=== PATIENT | male | born 1935 | race Caucasian/White ===

== ENCOUNTER 2016-11-21 08:57 | Outpatient (CLI) | payer MEDICARE, OTHER ==
[2016-11-21 09:25] LABS: Hemoglobin A1c 5.2 % (4.0-6.0)
[2016-11-21 09:31] LABS: #Basophils 0.1 thou/uL (0.0-0.2); #Eosinphils 0.2 thou/uL (0.0-0.7); #Lymphocytes 1.7 thou/uL (1.20-3.40); #Monocytes 0.5 thou/uL (0.11-0.59); #Neutrophils 3.3 thou/uL (1.40-6.50); %Basophils 1.1 % (0.0-1.0); %Eosinophils 3.3 % (0.0-10.0); %Monocytes 8.1 % (0.0-10.0); %Neutrophils 58.5 % (42.0-75.0); Hemoglobin 13.7 g/dL (14.0-18.0); Mean Corpuscular HGB CONC 33.1 g/dL (32.0-36.0); Mean Corpuscular Hemoglobin 29.7 pg (27.0-31.0); Mean Corpuscular Volume 89.7 fl (80.0-94.0); Mean Platelet Volume 7.8 fL (7.4-10.4); Platelet Count 187 thou/uL (130-400); Red Blood Cell (RBC) Count 4.61 mill/uL (4.70-6.10); White Blood Cell (WBC) Count 5.7 thou/uL (4.8-10.8)
[2016-11-21 09:36] LABS: ALT (SGPT) 17 U/L (0-55); AST (SGOT) 19 U/L (5-34); Albumin 3.6 g/dL (3.4-4.8); Alkaline Phosphatase 95 U/L (40-150); Anion Gap 15 mmol/L (10-20); BUN (Urea Nitrogen) 18 mg/dL (8.4-25.7); Calc. Creatinine Clearance 0 mL/min (70-130); Calcium 9.6 mg/dL (7.8-10.44); Carbon Dioxide 29 mmol/L (23-31); Cardiac Risk 2.7 (Less than 4.5); Chloride 101 mmol/L (98-107); Cholesterol 126 mg/dL (< 200 Desired); Estimated GFR-MDRD 61; Glucose 95 mg/dL (83-110); HDL Cholesterol 47 mg/dL (>60 Neg Risk); LDL Cholesterol, Calculated 66 mg/dL; Potassium 4.3 mmol/L (3.5-5.1); Protein, Total 6.6 g/dL (5.8-8.1); Sodium 141 mmol/L (136-145); Triglycerides 66 mg/dL (Less than 150)
[2016-11-21 09:53] LABS: Bilirubin Negative (Negative); Blood, Urine Trace (Negative); Clarity Clear (Clear); Glucose, Urine (Dipstick) Negative (Negative); Leukocyte Negative (Negative); Nitrite Negative (Negative); Protein, Urine (Dipstick) Trace mg/dL (Neg-Trace)
[2016-11-21 10:07] LABS: Bilirubin, Total 0.6 mg/dL (0.2-1.2)
[2016-11-21 10:12] LABS: RBC/HPF 0-3 HPF (0-3); WBC/HPF None Seen HPF (0-3)
[2016-11-21 19:09] LABS: Creatinine, Urine 156.34 mg/dL (63-166); Microalbumin Urine 4.5 mg/dL (0.5-50.0); Microalbumin/Creat Ratio 28.8 mg/g (Less than 30)
== END 2016-11-21 08:58 ==
LOC: MADLABBHPM 08:57
PROVIDERS: ATTEND Family Medicine
DX: E03.9 Hypothyroidism, unspecified (principal)
CPT/HCPCS: 36415; 80053; 80061; 81001; 82043; 82570; 83036; 84443; 85025

== ENCOUNTER 2017-02-19 08:56 | Outpatient (CLI) | payer MEDICARE, OTHER ==
[2017-02-19 09:22] LABS: #Eosinphils 0.1 thou/uL (0.0-0.7); #Lymphocytes 1.4 thou/uL (1.20-3.40); #Monocytes 0.4 thou/uL (0.11-0.59); #Neutrophils 2.3 thou/uL (1.40-6.50); %Basophils 1.2 % (0.0-1.0); %Eosinophils 3.4 % (0.0-10.0); %Lymphocytes 32.9 % (21.0-51.0); %Monocytes 8.8 % (0.0-10.0); %Neutrophils 53.7 % (42.0-75.0); Hemoglobin 14.2 g/dL (14.0-18.0); Mean Corpuscular Hemoglobin 29.5 pg (27.0-31.0); Mean Corpuscular Volume 89.4 fl (80.0-94.0); Platelet Count 159 thou/uL (130-400); Red Blood Cell (RBC) Count 4.83 mill/uL (4.70-6.10); White Blood Cell (WBC) Count 4.2 thou/uL (4.8-10.8)
[2017-02-19 09:32] LABS: Hemoglobin A1c 5.3 % (4.0-6.0)
[2017-02-19 09:49] LABS: ALT (SGPT) 14 U/L (0-55); AST (SGOT) 19 U/L (5-34); Albumin 3.8 g/dL (3.4-4.8); Alkaline Phosphatase 109 U/L (40-150); Anion Gap 14 mmol/L (10-20); BUN (Urea Nitrogen) 16 mg/dL (8.4-25.7); Bilirubin, Direct 0.2 mg/dL (0.1-0.3); Bilirubin, Total 0.5 mg/dL (0.2-1.2); Calc. Creatinine Clearance 0 mL/min (70-130); Calcium 9.4 mg/dL (7.8-10.44); Carbon Dioxide 28 mmol/L (23-31); Cardiac Risk 3.2 (Less than 4.5); Chloride 102 mmol/L (98-107); Cholesterol 127 mg/dL (< 200 Desired); Estimated GFR-MDRD 53; Glucose 94 mg/dL (83-110); HDL Cholesterol 40 mg/dL (>60 Neg Risk); LDL Cholesterol, Calculated 74 mg/dL; Potassium 4.2 mmol/L (3.5-5.1); Protein, Total 6.7 g/dL (5.8-8.1); Sodium 140 mmol/L (136-145); Triglycerides 63 mg/dL (Less than 150)
== END 2017-02-19 08:57 ==
LOC: MADLABBHPM 08:56
PROVIDERS: ATTEND Family Medicine
DX: I42.9 Cardiomyopathy, unspecified (principal); E11.9 Type 2 diabetes mellitus without complications
CPT/HCPCS: 36415; 80048; 80061; 80076; 83036; 85025

== ENCOUNTER 2017-07-13 08:43 | Outpatient (CLI) | payer MEDICARE, OTHER ==
[2017-07-13 09:34] LABS: #Basophils 0.1 thou/uL (0.0-0.2); #Eosinphils 0.2 thou/uL (0.0-0.7); #Lymphocytes 1.3 thou/uL (1.20-3.40); #Monocytes 0.5 thou/uL (0.11-0.59); #Neutrophils 3.1 thou/uL (1.40-6.50); %Basophils 1.1 % (0.0-1.0); %Eosinophils 3.8 % (0.0-10.0); %Lymphocytes 25.9 % (21.0-51.0); %Monocytes 9.2 % (0.0-10.0); Hemoglobin 14.2 g/dL (14.0-18.0); Mean Corpuscular HGB CONC 32.3 g/dL (32.0-36.0); Mean Corpuscular Hemoglobin 29.3 pg (27.0-31.0); Mean Corpuscular Volume 90.5 fl (80.0-94.0); Platelet Count 162 thou/uL (130-400); Red Blood Cell (RBC) Count 4.83 mill/uL (4.70-6.10); White Blood Cell (WBC) Count 5.2 thou/uL (4.8-10.8)
[2017-07-13 09:39] LABS: Hemoglobin A1c 5.1 % (4.0-6.0)
[2017-07-13 10:06] LABS: ALT (SGPT) 26 U/L (8-55); AST (SGOT) 21 U/L (5-34); Albumin 3.9 g/dL (3.4-4.8); Alkaline Phosphatase 105 U/L (40-150); Anion Gap 13 mmol/L (10-20); BUN (Urea Nitrogen) 20 mg/dL (8.4-25.7); Bilirubin, Direct 0.2 mg/dL (0.1-0.3); Bilirubin, Total 0.5 mg/dL (0.2-1.2); Calc. Creatinine Clearance 0 mL/min (70-130); Calcium 9.6 mg/dL (7.8-10.44); Carbon Dioxide 26 mmol/L (23-31); Cardiac Risk 2.4 (Less than 4.5); Chloride 102 mmol/L (98-107); Cholesterol 116 mg/dl (< 200 Desired); Estimated GFR-MDRD 58; Glucose 90 mg/dL (83-110); HDL Cholesterol 48 mg/dL (>60 Neg Risk); LDL Cholesterol, Calculated 58 mg/dL; Potassium 4.4 mmol/L (3.5-5.1); Protein, Total 6.9 g/dL (5.8-8.1); Sodium 137 mmol/L (136-145); Triglycerides 52 mg/dL (Less than 150)
== END 2017-07-13 08:44 | disposition home or self-care (01) ==
LOC: MADLABBHPM 08:43
PROVIDERS: ATTEND Family Medicine
DX: E11.22 Type 2 diabetes mellitus with diabetic chronic kidney disease (principal); N18.3 Chronic kidney disease, stage 3 (moderate)
CPT/HCPCS: 36415; 80048; 80061; 80076; 83036; 85025

== ENCOUNTER 2018-10-28 11:55 | Outpatient (CLI) | payer MEDICARE, BC ==
--- NOTE | 2018-10-28 16:51 | ULT ---
RENAL SONOGRAM: Date: 10-28-18 History: Abnormality left kidney seen on CTA chest. Comparison: CTA chest 09-26-18 FINDINGS: The right kidney demonstrates a normal sonographic appearance without evidence of renal mass, renal c alculus or hydronephrosis. The right kidney measures 10.7 cm x 5 cm. The superior and inferior poles of the left kidney are not well visualized due to adjacent shadowing from bowel gas. The right kidney measures 11.7 cm x 4.1 cm. Previously noted exophytic lesion at the superior pole left kidney is not visualized on this examination. There is no hydronephrosis or renal calculus seen on the left. The urinary bladder is partially distended and has a normal sonographic appearance with urinary bladd er volume of 147 ml. IMPRESSION: 1. The exophytic lesion superior pole left kidney noted on CT examination is not visualized on this s tudy and cannot be further assessed. Kidneys otherwise have a normal sonographic appearance bilatera lly, and there is no hydronephrosis. POS: ALLI
== END 2018-10-28 11:56 | disposition home or self-care (01) ==
LOC: MADULT 11:55
PROVIDERS: ATTEND Family Medicine
DX: R93.89 Abnormal findings on diagnostic imaging of other specified body structures (principal); N28.9 Disorder of kidney and ureter, unspecified
CPT/HCPCS: 76770

== ENCOUNTER 2018-12-20 17:42 | Inpatient (IN) | payer MEDICARE, BC ==
[2018-12-20 18:31] VITALS: BMI 37.6
[2018-12-20] MEDS ORDERED: Milk Of Magnesia 30 ML UDCUP PO PRN (20:45)
[2018-12-21] MEDS: PROPAFENONE HCL 225 MG PO SCH ×4 (01:51→09:41)
[2018-12-21] MEDS: guaiFENesin ER 600 MG TAB PO SCH ×4 (01:52→21:30)
[2018-12-21] MEDS: Apixaban 5 MG TAB PO SCH ×4 (01:52→21:29)
[2018-12-21] MEDS: Cephalexin 250 MG CAP PO SCH ×5 (02:00→21:29)
[2018-12-21] MEDS: Atorvastatin Calcium 10 MG TAB PO SCH ×2 (02:00→21:29)
[2018-12-21] MEDS: Montelukast Sodium 10 mg Tablet PO SCH ×2 (02:01→21:30)
[2018-12-21] MEDS: Lorazepam 1 MG TAB PO PRN ×2 (02:01→21:31)
[2018-12-21] MEDS: Levothyroxine Sodium 25 MCG TAB PO SCH (05:52)
[2018-12-21] MEDS: Furosemide 80 MG TAB PO SCH (08:07)
[2018-12-21] MEDS: Polyethylene Glycol 3350 17 GM Packet PO SCH (08:07)
[2018-12-21] MEDS: Aspirin 81 mg Enteric Coated Tablet PO SCH (08:07)
[2018-12-21] MEDS: Spironolactone 25 MG TAB PO SCH (09:36)
[2018-12-21] MEDS: Propafenone HCl 150 MG TAB PO SCH ×2 (14:52→21:31)
[2018-12-22 05:01] LABS: #Basophils 0.1 thou/uL (0.0-0.2); #Eosinphils 0.1 thou/uL (0.0-0.7); #Lymphocytes 1.7 thou/uL (1.20-3.40); #Monocytes 0.8 thou/uL (0.11-0.59); #Neutrophils 4.3 thou/uL (1.40-6.50); %Basophils 0.8 % (0.0-1.0); %Eosinophils 1.3 % (0.0-10.0); %Lymphocytes 24.2 % (21.0-51.0); %Monocytes 11.7 % (0.0-10.0); Hemoglobin 12.1 g/dL (14.0-18.0); Mean Corpuscular HGB CONC 31.5 g/dL (32.0-36.0); Mean Corpuscular Hemoglobin 28.9 pg (27.0-31.0); Mean Corpuscular Volume 91.5 fL (78.0-98.0); Mean Platelet Volume 6.4 fL (7.4-10.4); Platelet Count 209 thou/uL (130-400); RBC Distribution Width 14.6 % (11.5-14.5)
[2018-12-22] MEDS: Propafenone HCl 150 MG TAB PO SCH ×3 (05:09→21:25)
[2018-12-22] MEDS: Levothyroxine Sodium 25 MCG TAB PO SCH (05:09)
[2018-12-22 05:20] LABS: Anion Gap 14 mmol/L (10-20); BUN (Urea Nitrogen) 21 mg/dL (8.4-25.7); Calc. Creatinine Clearance 107 mL/min (70-130); Calcium 8.9 mg/dL (7.8-10.44); Carbon Dioxide 37 mmol/L (23-31); Estimated GFR-MDRD 75; Glucose 84 mg/dL (83-110)
[2018-12-22 05:25] LABS: Chloride 92 mmol/L (98-107); Potassium 3.3 mmol/L (3.5-5.1); Sodium 140 mmol/L (136-145)
[2018-12-22] MEDS: Polyethylene Glycol 3350 17 GM Packet PO SCH (08:10)
[2018-12-22] MEDS: Aspirin 81 mg Enteric Coated Tablet PO SCH (08:12)
[2018-12-22] MEDS: Apixaban 5 MG TAB PO SCH ×2 (08:12→21:24)
[2018-12-22] MEDS: Cephalexin 250 MG CAP PO SCH ×3 (08:13→21:24)
[2018-12-22] MEDS: Spironolactone 25 MG TAB PO SCH (08:13)
[2018-12-22] MEDS: guaiFENesin ER 600 MG TAB PO SCH ×2 (08:13→21:25)
[2018-12-22] MEDS: Furosemide 80 MG TAB PO SCH (08:13)
[2018-12-22] MEDS ORDERED: Potassium Chloride 10 MEQ TAB PO SCH (09:45)
[2018-12-22] MEDS: Atorvastatin Calcium 10 MG TAB PO SCH (21:24)
[2018-12-22] MEDS: Montelukast Sodium 10 mg Tablet PO SCH (21:25)
[2018-12-22] MEDS: Lorazepam 1 MG TAB PO PRN (21:26)
[2018-12-23 05:22] LABS: Anion Gap 13 mmol/L (10-20); BUN (Urea Nitrogen) 15 mg/dL (8.4-25.7); Calc. Creatinine Clearance 121 mL/min (70-130); Calcium 8.6 mg/dL (7.8-10.44); Carbon Dioxide 36 mmol/L (23-31); Estimated GFR-MDRD 86; Glucose 85 mg/dL (83-110)
[2018-12-23 05:30] LABS: Chloride 94 mmol/L (98-107); Potassium 3.4 mmol/L (3.5-5.1); Sodium 140 mmol/L (136-145)
[2018-12-23] MEDS: Propafenone HCl 150 MG TAB PO SCH ×3 (05:47→22:04)
[2018-12-23] MEDS: Levothyroxine Sodium 25 MCG TAB PO SCH (05:48)
--- NOTE | 2018-12-23 07:58 | HP ---
Admitted at [facility] to [facility] care on the late evening of 12/20/2018. CHIEF COMPLAINT: Weakness following hospitalization for cellulitis of the right leg. HISTORY OF PRESENT ILLNESS: The patient is an 83-year-old obese white male who has a history of COPD, severe obstructive sleep apnea, for which he required permanent tracheostomy for management. These respiratory problems are complicated by chronic hypoxic and hypercapnic respiratory failure. He also has a history of hypertension, coronary artery disease, and paroxysmal atrial fibrillation and flutter, for which he is on anticoagulant Eliquis and on Rythmol. He has hypertension and severe venous insufficiency of the lower extremities, complicated by numerous episodes of cellulitis. He has required numerous hospitalizations for either COPD exacerbations or the cellulitis of the lower extremities. He lives at home, where his is his primary caregiver. He can ambulate very short distances, typically gets around in a wheelchair with someone wheeling him. He requires assistance with bathing and dressing and daily care of his trach. The patient was hospitalized at [facility] from 12/17/2018 until 2018 for cellulitis of the right lower extremity. This had initially been attempted to be managed at home. When the leg experienced increased swelling and redness, he was placed on clindamycin 300 mg q.i.d., rest with elevation of the legs, and moist and warm pack. In spite of this, his leg got worse and bright red and hot, necessitating the hospitalization. During that hospitalization, he had a venous Doppler of the lower extremities, which showed no evidence of DVT. His chest x- ray was clear and blood cultures were negative. He was treated with IV Rocephin and vancomycin, and after improvement and cultures came back negative, he was switched to Keflex. He did very well and the cellulitis was resolving, but we will need to continue oral cephalexin for at least another 7 to 10 days. The patient has been very weak, and even prior to this hospitalization, had been weaker than usual and had not been able to get out of the home as a result of the weakness. This has come on with marked decline in his strength after hospitalization from 10/30 to for episode of atrial fibrillation, flutter with rapid ventricular response. This has been controlled. The patient was seen early in the morning of 12/21/2018, and he said he is feeling a lot better. His breathing is stable and his leg feels a lot better and it is not red and hot, he is though extremely weak. PAST MEDICAL HISTORY: Hospitalized at [facility] from 12/17/2018 until 12/20/2018 for right lower extremity cellulitis. Venous Doppler showed no evidence of DVT, treated with Rocephin and vancomycin, and switched to cephalexin. Hospitalized at [facility] from 10/30/2018 until 11/04/2018 for atrial flutter, [id number] respiratory failure. The patient has hypertension, severe COPD with chronic hypoxic and hypercapnic respiratory failure, severe sleep apnea that required permanent tracheostomy, which requires cleaning at least twice a day and more often as needed and periodic change out of the tracheostomy tube. The patient has paroxysmal atrial fibrillation and flutter, for which he is on Eliquis and also on Rythmol. The patient has coronary artery disease, for which he had a bare-metal stent placed in the ramus in 2003. He is a former smoker. He has a history of gastrointestinal bleed years previously. He also has a history of severe venous insufficiency of the lower extremities with chronic stasis dermatitis, and frequently complicated by episodes of cellulitis. He has hypercholesterolemia, hypothyroidism, chronic kidney disease. Historically, he has had diabetes, but he is presently on no medications. Last hemoglobin A1c was 5.2 on 10/08/2018. He has generalized weakness and gait abnormality, morbid obesity, osteoarthritis. The patient had an EGD with gastrostomy tube placement in January 2012, this tube was later removed. Colonoscopy in 2010, showed diverticular disease of the colon and hemorrhoids. Tracheostomy placed on 06/10/2011. Cholecystectomy in April 2000. PRESENT MEDICATIONS: 1. Atorvastatin 10 mg daily. 2. Furosemide 80 mg daily. 3. Lorazepam 1 mg b.i.d. p.r.n. 4. Mucinex 1200 mg b.i.d. 5. Eliquis 5 mg b.i.d. 6. Aspirin 81 mg daily. 7. Cephalexin 500 mg t.i.d. for 7 days. 8. Cardizem CD 120 mg daily. 9. DuoNeb by nebulizer q.i.d. and every 2 hours as needed. 10. Synthroid 25 mcg daily. 11. Singulair 10 mg daily. 12. Rythmol 225 mg every 8 hours. 13. Aldactone 25 mg daily. 14. Renuka lotion/Kenalog 15 ounces/200 mg apply to the legs twice a day as needed for itching. 15. MiraLAX 17 g in 8 ounces of water daily. 16. Tylenol 500 mg one every 6 hours as needed. 17. Oxygen at 2 L via trach at bedtime and p.r.n. 18. Spironolactone 25 mg daily. ALLERGIES: TAMIFLU CAUSES ITCHING. REVIEW OF SYSTEMS: GENERAL: The patient said he has not had any fever. He does not think that his weight has changed. HEAD AND NECK: No complaint. PULMONARY: The patient is breathing, he thinks it is normal for him. His tracheostomy tube has to be cleaned at least twice a day and more often as needed. He has some minimal mucus being cleaned from the inter cannula of the trach that is not discolored. He is not having any increased cough. No increased sputum production. No increased shortness of breath. CARDIOVASCULAR: No chest pain. GI: No nausea, vomiting, or abdominal pain. He said he is constipated. : No complaints. EXTREMITIES: The patient said that his right leg feels a lot better. The increased heat and redness has gone. ADLs; the patient said that he is much weaker than usual. He cannot get up without some help. He is usually able to ambulate short distances in the home, needs help with transfers, usually gets around in a wheelchair with someone pushing him. The patient needs help with bathing, dressing, and ambulation, and he is able to feed himself. HABITS: Alcohol, none. Tobacco, the patient used to smoke. SOCIAL HISTORY: The patient lives at home. Primary caregiver is his , Steph. CODE STATUS: Full code. PHYSICAL EXAMINATION: GENERAL: Shows an 83-year-old white male, who is sitting up in a Dede chair. He has a tracheostomy tube in place and covers this to talk. He has a trach shield over the trach site. He looks very comfortable. He is talkative, and smiling and appears in no distress. VITAL SIGNS: Show a temperature of 97.2, pulse 84, respirations 20, O2 saturations 98% on trach collar at 31%, blood pressure 142/91. His height is 70 inches, weight is 285. HEENT: Head, normocephalic. Eyes; pupils are equal, round, reactive. Sclerae are nonicteric. Ears; left TM has cerumen obscuring the TM. Right TM, clear. Nose , normal. Mouth and throat, normal. NECK: No adenopathy. Thyroid, not enlarged. The patient has a tracheostomy tube present. The trach site is clean and inner cannula. There is no mucus at the trach tube site. The surrounding skin of the trach is not red. LUNGS: Have some coarse expiratory breath sounds. No definite wheezing, no rales with good breath sounds. HEART: Regular rate. No murmurs. ABDOMEN: Obese. No organomegaly. No areas of tenderness. EXTREMITIES: Lower extremities, the patient has chronic 2+ edema in both legs. He has chronic stasis changes with a bluish discoloration of the skin. The right leg had been extremely red and hot on his admission to [place] on 12/17/2018. This redness and increased heat has all resolved. He does have some little superficial open areas on the anterior lower leg that have overlying dressings. NEUROLOGIC: The patient is alert and oriented x3. He has generalized weakness , but no focal weakness. IMPRESSION: 1. Generalized weakness with gait abnormality: a. Secondary to severe deconditioning, aggravated by recent hospitalizations on 10/30/2018 and then again on 12/17/2018. b. Contributed too by his severe chronic obstructive pulmonary disease and obstructive sleep apnea and obesity. 2. Hospitalized at [facility] from 12/17/2018 to 12/20/2018 for cellulitis of the right leg, unresponsive to outpatient management. 3. Cellulitis of the right leg. a. Required hospitalization at [facility] from 12/17/2018 until 11/2018. b. Improved and now on oral antibiotics. 4. Chronic obstructive pulmonary disease: a. Complicated by chronic hypoxic and hypercapnic respiratory failure, contributed too by his obstructive sleep apnea. 5. Severe obstructive sleep apnea: a. Required permanent tracheostomy, placed on 06/10/2011. b. Complicated by chronic hypoxic and hypercapnic respiratory failure. 6. Paroxysmal atrial fibrillation/atrial flutter. a. Controlled on Rythmol and on chronic anticoagulation with Eliquis. 7. Coronary artery disease. a. Status post bare metal stent in 2003 in the ramus. b. Presently asymptomatic. 8. Morbid obesity. 9. Severe venous insufficiency of the lower extremities. a. Complicated by chronic stasis dermatitis. b. Complicated by frequent episodes of cellulitis, most recent episode requiring hospitalization from 12/17/2018 to 12/20/2018. 10. Hypertension. 11. Hypothyroidism. 12. Chronic kidney disease, stage 3. 13. Anxiety disorder. PLAN: The patient has been admitted to [facility] for physical therapy in an effort to improve his strength, his gait, and functional capabilities. He lives at home and his serves as his primary caregiver. If his functional capabilities improve, it would greatly assist with his care in the home. We will continue his present medicines. We will continue his antibiotics with cephalexin for a 10-day period. PT and OT will see him. He will receive trach care with cleaning of the inner cannula at least twice a day and as needed. He is on Eliquis for the atrial fib. It will as DVT prophylaxis. He is a full code. See orders. Job ID: [id number] MTDD
--- NOTE | 2018-12-23 08:06 | PRG ---
DATE OF SERVICE: 12/22/2018 SUBJECTIVE: The patient is sitting up in his geriatric chair with his visiting. He says he had a good night, slept well. This morning, he feels better. Yesterday, he did walk just a short distance in the hallway with a walker and thought he did well. His legs are feeling good today, and his breathing, he thinks is about normal for him. There is no increased cough. OBJECTIVE: GENERAL: The patient is sitting up in his geriatric chair, he is smiling, looks very comfortable, in no distress. VITAL SIGNS: Show a temperature of 97.3, pulse 60, respirations 20, O2 saturations 96% with a trach collar, and blood pressure 128/65. LUNGS: Have some very slight coarseness on inspiration, there is no wheeze. Expiration is clear, there are no rales or wheezes. There are good breath sounds. HEART: Regular rate. EXTREMITIES: The legs look better. There is no redness. He has a chronic bluish hue, and the legs are dependent and some 1+ edema, much less than usual. LABORATORY DATA: The lab done this morning shows hemoglobin and hematocrit of 12.1 and 38.7, white blood cell count 7000, with 62% segs, 24% lymphocytes, and platelet count of 209,000. Sodium 140, potassium 3.3, BUN 21, creatinine 0.96, GFR 75, glucose 84. ASSESSMENT: The patient is doing better today. The cellulitis is all resolving. His severe venous insufficiency is much better, and chronic stasis dermatitis is stable. He is doing well with his permanent trach, but still requires the supplemental O2 by the trach collar. He still has a generalized weakness, but he has been up walking some. PLAN: We will continue the oral antibiotics, continue PT and OT. Job ID: [id number]
[2018-12-23] MEDS: Cephalexin 250 MG CAP PO SCH ×3 (08:19→20:42)
[2018-12-23] MEDS: Potassium Chloride 10 MEQ TAB PO SCH (08:19)
[2018-12-23] MEDS: Polyethylene Glycol 3350 17 GM Packet PO SCH (08:19)
[2018-12-23] MEDS: guaiFENesin ER 600 MG TAB PO SCH ×2 (08:19→20:42)
[2018-12-23] MEDS: Spironolactone 25 MG TAB PO SCH (08:20)
[2018-12-23] MEDS: Furosemide 80 MG TAB PO SCH (08:20)
[2018-12-23] MEDS: Aspirin 81 mg Enteric Coated Tablet PO SCH (08:20)
[2018-12-23] MEDS: Apixaban 5 MG TAB PO SCH ×2 (08:20→20:43)
--- NOTE | 2018-12-23 09:12 | PRG ---
DATE OF SERVICE: 12/23/2018 SUBJECTIVE: The patient thinks he is doing good today. He slept good in his bed last night. His breathing is doing good. He states he just worked with physical therapy this morning. The patient has had a little redness in the groin area at home. This happens and he uses a little antifungal cream that helps. OBJECTIVE: GENERAL: The patient is sitting up in a chair, visiting with friends. He appears comfortable, in no distress, talkative. VITAL SIGNS: Shows a temperature 97.2, pulse 57, respirations 20, O2 saturation 93%, blood pressure 123/70. LUNGS: Clear. There are some coarse rales at the base that resolved with deep inspiration. HEART: Regular rate. EXTREMITIES: Chronic 1+ edema in the legs present. Chronic stasis changes. Overall, the legs are unchanged. There is no redness or increased heat. ASSESSMENT: 1. Generalized weakness with gait abnormality: a. Secondary to severe deconditioning, aggravated by recent hospitalizations on 10/30/2018 and then again on 12/17/2018. b. Contributed too by his severe chronic obstructive pulmonary disease and obstructive sleep apnea and obesity. c. Improved. Walking short distances as of 12/23/2018. 2. Hospitalized at [facility] from 12/17/2018 to 12/20/2018 for cellulitis of the right leg, unresponsive to outpatient management. 3. Cellulitis of the right leg. a. Required hospitalization at [facility] from 12/17/2018 until 11/2018. b. Resolving, completing his course of oral antibiotics as of 12/23/2018. 4. Chronic obstructive pulmonary disease: a. Complicated by chronic hypoxic and hypercapnic respiratory failure, contributed too by his obstructive sleep apnea. b. Stable as of 12/23/2018. 5. Severe obstructive sleep apnea: a. Required permanent tracheostomy, placed on 06/10/2011. b. Complicated by chronic hypoxic and hypercapnic respiratory failure. c. Stable as of 12/23/2018. 6. Paroxysmal atrial fibrillation/atrial flutter. a. Controlled on Rythmol and on chronic anticoagulation with Eliquis. 7. Coronary artery disease. a. Status post bare metal stent in 2004 in the ramus. b. Presently asymptomatic. 8. Morbid obesity. 9. Severe venous insufficiency of the lower extremities. a. Complicated by chronic stasis dermatitis. b. Complicated by frequent episodes of cellulitis, most recent episode requiring hospitalization from 12/17/2018 to 12/20/2018. c. Stable as of 12/23/2018. 10. Hypertension. 11. Hypothyroidism. 12. Chronic kidney disease, stage 3. 13. Anxiety disorder. PLAN: Continue present care. Complete the 10 day course of oral antibiotics. Continue PT and OT. Job ID: [id number] MTDD
[2018-12-23] MEDS: Atorvastatin Calcium 10 MG TAB PO SCH (20:42)
[2018-12-23] MEDS: Montelukast Sodium 10 mg Tablet PO SCH (20:43)
[2018-12-24] MEDS: Levothyroxine Sodium 25 MCG TAB PO SCH (06:02)
[2018-12-24] MEDS: Propafenone HCl 150 MG TAB PO SCH ×3 (06:02→21:01)
[2018-12-24] MEDS: Potassium Chloride 10 MEQ TAB PO SCH (07:22)
[2018-12-24] MEDS: Spironolactone 25 MG TAB PO SCH (07:22)
[2018-12-24] MEDS: Polyethylene Glycol 3350 17 GM Packet PO SCH (08:15)
[2018-12-24] MEDS: Cephalexin 250 MG CAP PO SCH ×3 (08:16→20:49)
[2018-12-24] MEDS: Apixaban 5 MG TAB PO SCH ×2 (08:16→20:48)
[2018-12-24] MEDS: Aspirin 81 mg Enteric Coated Tablet PO SCH (08:17)
[2018-12-24] MEDS: Furosemide 80 MG TAB PO SCH (08:17)
[2018-12-24] MEDS: guaiFENesin ER 600 MG TAB PO SCH ×2 (08:21→20:50)
--- NOTE | 2018-12-24 11:25 | PRG ---
DATE OF SERVICE: 12/24/2018 SUBJECTIVE: The patient said he is doing good this morning. His legs are not hurting him. He is breathing good. The patient said that he just cannot sleep well in the bed. At home, he has a big lounge chair that he is able to recline and sleep him. The chair that I have here is just too small. He thinks he will do fine at home. He said his does a wonderful job caring for him. OBJECTIVE: GENERAL: The patient is sitting up in a geriatric chair. He is alert , talkative, appears comfortable, in no distress. VITAL SIGNS: His temperature is 97.1, pulse 57, respirations 22, O2 saturations 95% with a trach collar on. Blood pressure 131/72, sitting upright. LUNGS: Clear. HEART: Regular rate. Trach site clean. EXTREMITIES: Chronic 1 to 2+ edema. Chronic stasis changes with chronic blue changes to the skin. There is no redness or increased heat. ASSESSMENT: 1. Generalized weakness with gait abnormality: a. Secondary to severe deconditioning, aggravated by recent hospitalizations on 10/30/2018 and then again on 12/17/2018. b. Contributed too by his severe chronic obstructive pulmonary disease and obstructive sleep apnea and obesity. c. Improved. Walking up to 40 feet twice today with a rolling walker. Transferring with minimal or primarily standby assistance as of 2018. 2. Hospitalized at [facility] from 12/17/2018 to 12/20/2018 for cellulitis of the right leg, unresponsive to outpatient management. 3. Cellulitis of the right leg. a. Required hospitalization at [facility] from 12/17/2018 until 11/2018. b. Resolving, completing his course of oral antibiotics as of 12/24/2018. 4. Chronic obstructive pulmonary disease: a. Complicated by chronic hypoxic and hypercapnic respiratory failure, contributed too by his obstructive sleep apnea. b. Stable as of 12/24/2018. 5. Severe obstructive sleep apnea: a. Required permanent tracheostomy, placed on 06/10/2011. b. Complicated by chronic hypoxic and hypercapnic respiratory failure. c. Stable as of 12/24/2018. 6. Paroxysmal atrial fibrillation/atrial flutter. a. Controlled on Rythmol and on chronic anticoagulation with Eliquis. 7. Coronary artery disease. a. Status post bare metal stent in 2003 in the ramus. b. Presently asymptomatic. 8. Morbid obesity. 9. Severe venous insufficiency of the lower extremities. a. Complicated by chronic stasis dermatitis. b. Complicated by frequent episodes of cellulitis, most recent episode requiring hospitalization from 12/17/2018 to 12/20/2018. c. Stable as of 12/24/2018. 10. Hypertension. 11. Hypothyroidism. 12. Chronic kidney disease, stage 3. 13. Anxiety disorder. PLAN: Continue present care. Continue PT/OT, visit with the patient and he will visit with his and they will make arrangements for his discharge tomorrow. Job ID: [id number] MTDD
[2018-12-24] MEDS: Atorvastatin Calcium 10 MG TAB PO SCH (20:48)
[2018-12-24] MEDS: Lorazepam 1 MG TAB PO PRN (20:50)
[2018-12-24] MEDS: Montelukast Sodium 10 mg Tablet PO SCH (20:50)
[2018-12-25] MEDS: Acetaminophen 325 MG TAB PO PRN ×2 (00:30→21:18)
[2018-12-25] MEDS: Levothyroxine Sodium 25 MCG TAB PO SCH (05:11)
[2018-12-25] MEDS: Propafenone HCl 150 MG TAB PO SCH ×3 (05:11→21:17)
[2018-12-25] MEDS: Polyethylene Glycol 3350 17 GM Packet PO SCH (08:22)
[2018-12-25] MEDS: Cephalexin 250 MG CAP PO SCH ×3 (08:23→21:16)
[2018-12-25] MEDS: guaiFENesin ER 600 MG TAB PO SCH ×2 (08:23→21:17)
[2018-12-25] MEDS: Spironolactone 25 MG TAB PO SCH (08:23)
[2018-12-25] MEDS: Potassium Chloride 10 MEQ TAB PO SCH (08:23)
[2018-12-25] MEDS: Apixaban 5 MG TAB PO SCH ×2 (08:24→21:16)
[2018-12-25] MEDS: Furosemide 80 MG TAB PO SCH (08:24)
[2018-12-25] MEDS: Aspirin 81 mg Enteric Coated Tablet PO SCH (08:24)
--- NOTE | 2018-12-25 08:51 | PRG ---
DATE OF SERVICE: 12/25/2018 SUBJECTIVE: I spoke with the patient's son, Jose, last night. He had had heard his dad was wanting to go home on 12/25. He does not think that his mother will be able to manage him. She is the primary caregiver. Said he is still weak. This morning , when I visited with the patient, his is there and he said that after visiting with his , he feels the best that he stay longer to continue the physical therapy. He is doing better, but still weak. 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 He said this would do a lot for him. Also, his son will look to get his large lounge chair up here, which would help him with his rest and sleeping at night with the feet elevated. OBJECTIVE: GENERAL: The patient is lying in his Dede chair with his feet elevated. He is alert and looks comfortable. VITAL SIGNS: His temperature is 97.4, pulse 58, his respirations are 20, O2 saturation 95% with a trach collar on. Blood pressure 130/66. His weight is 284, which is stable. LUNGS: Clear. HEART: Regular rate. EXTREMITIES: Chronic 1+ edema and chronic stasis changes. No redness or increased heat. ASSESSMENT: 1. Generalized weakness with gait abnormality: a. Secondary to severe deconditioning, aggravated by recent hospitalizations on 10/30/2018 and then again on 12/17/2018. b. Contributed too by his severe chronic obstructive pulmonary disease and obstructive sleep apnea and obesity. c. Improved. Walking up to 40 feet with a rolling walker. Still needs assistance with transfers and standby assistance with walking as of 12/25/2018. 2. Hospitalized at [facility] from 12/17/2018 to 12/20/2018 for cellulitis of the right leg, unresponsive to outpatient management. 3. Cellulitis of the right leg. a. Required hospitalization at [facility] from 12/17/2018 until 11/2018. b. Resolved. Still has a few days left on his oral antibiotics as of 2018. 4. Chronic obstructive pulmonary disease: a. Complicated by chronic hypoxic and hypercapnic respiratory failure, contributed too by his obstructive sleep apnea. b. Stable as of 12/25/2018. 5. Severe obstructive sleep apnea: a. Required permanent tracheostomy, placed on 06/10/2011. b. Complicated by chronic hypoxic and hypercapnic respiratory failure. c. Stable as of 12/25/2018. 6. Paroxysmal atrial fibrillation/atrial flutter. a. Controlled on Rythmol and on chronic anticoagulation with Eliquis. 7. Coronary artery disease. a. Status post bare metal stent in 2004 in the ramus. b. Presently asymptomatic. 8. Morbid obesity. 9. Severe venous insufficiency of the lower extremities. a. Complicated by chronic stasis dermatitis. b. Complicated by frequent episodes of cellulitis, most recent episode requiring hospitalization from 12/17/2018 to 12/20/2018. c. Stable as of 12/25/2018. 10. Hypertension. 11. Hypothyroidism. 12. Chronic kidney disease, stage 3. 13. Anxiety disorder. PLAN: I had visited with the patient and his and agree that he would benefit by longer stay and extended care for continued physical therapy. This certainly will help when he does go home. His is his primary caregiver. 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 The son will work to bring his lounge chair up. This will allow him more comfort and allow him to sleep with the legs in a more elevated position. Job ID: [id number] [facility]
[2018-12-25] MEDS: Atorvastatin Calcium 10 MG TAB PO SCH (21:16)
[2018-12-25] MEDS: Montelukast Sodium 10 mg Tablet PO SCH (21:17)
[2018-12-25] MEDS: Lorazepam 1 MG TAB PO PRN (21:19)
[2018-12-26] MEDS: Propafenone HCl 150 MG TAB PO SCH ×3 (05:44→21:45)
[2018-12-26] MEDS: Levothyroxine Sodium 25 MCG TAB PO SCH (05:44)
[2018-12-26] MEDS: Polyethylene Glycol 3350 17 GM Packet PO SCH (08:14)
[2018-12-26] MEDS: Cephalexin 250 MG CAP PO SCH (08:15)
[2018-12-26] MEDS: Aspirin 81 mg Enteric Coated Tablet PO SCH (08:15)
[2018-12-26] MEDS: guaiFENesin ER 600 MG TAB PO SCH ×2 (08:16→21:44)
[2018-12-26] MEDS: Potassium Chloride 10 MEQ TAB PO SCH (08:16)
[2018-12-26] MEDS: Furosemide 80 MG TAB PO SCH (08:16)
[2018-12-26] MEDS: Spironolactone 25 MG TAB PO SCH (08:16)
[2018-12-26] MEDS: Apixaban 5 MG TAB PO SCH ×2 (08:16→21:44)
--- NOTE | 2018-12-26 10:14 | PRG ---
DATE OF SERVICE: 12/26/2018 SUBJECTIVE: The patient said that he is doing better. He has decided not to bring his chair up because it was just too much trouble for his family. He did sleep in bed last night and he said that went very well. He slept all night, this morning , feels really good. His legs are down. He did not go out on pass yesterday, but would like to today. OBJECTIVE: GENERAL: The patient looks better. He looks very comfortable, in no distress. VITAL SIGNS: Show a temperature of 97.1, pulse 59, blood pressure 129/70, respirations 22, O2 saturation 96% with his trach collar on. LUNGS: Have just a little coarseness of expiratory and inspiratory breath sounds. No wheezes. No rales. HEART: Regular rate. EXTREMITIES: Better. Both legs look smaller and there is just a chronic 1+ edema , better than usual. He has a chronic bluish discoloration, but even that looks little better this morning. ASSESSMENT: 1. Generalized weakness with gait abnormality: a. Secondary to severe deconditioning, aggravated by recent hospitalizations on 10/30/2018 and then again on 12/17/2018. b. Contributed too by his severe chronic obstructive pulmonary disease and obstructive sleep apnea and obesity. c. Improved. Walking up to 40 feet with a rolling walker. Still needs assistance with transfers and standby assistance with walking as of 12/26/2018. 2. Hospitalized at [facility] from 12/17/2018 to 12/20/2018 for cellulitis of the right leg, unresponsive to outpatient management. 3. Cellulitis of the right leg. a. Required hospitalization at [facility] from 12/17/2018 until 11/2018. b. Resolved. We will complete his oral antibiotics on 12/30/2018. 4. Chronic obstructive pulmonary disease: a. Complicated by chronic hypoxic and hypercapnic respiratory failure, contributed too by his obstructive sleep apnea. b. Stable as of 12/26/2018. 5. Severe obstructive sleep apnea: a. Required permanent tracheostomy, placed on 06/10/2011. b. Complicated by chronic hypoxic and hypercapnic respiratory failure. c. Stable as of 12/26/2018. 6. Paroxysmal atrial fibrillation/atrial flutter. a. Controlled on Rythmol and on chronic anticoagulation with Eliquis. 7. Coronary artery disease. a. Status post bare metal stent in 2004 in the ramus. b. Presently asymptomatic. 8. Morbid obesity. 9. Severe venous insufficiency of the lower extremities. a. Complicated by chronic stasis dermatitis. b. Complicated by frequent episodes of cellulitis, most recent episode requiring hospitalization from 12/17/2018 to 12/20/2018. c. Improved with less edema after a night of bedrest as of 12/26/2018. 10. Hypertension. 11. Hypothyroidism. 12. Chronic kidney disease, stage 3. 13. Anxiety disorder. PLAN: The patient looks better. Encourage him to try to sleep every night in bed with bedrest. It certainly helps him mobilize his edema in his legs. Continue PT /OT. 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 Job ID: [id number] MTDD
[2018-12-26] MEDS: Cephalexin 500 MG CAP PO SCH ×2 (14:32→21:45)
[2018-12-26] MEDS: Atorvastatin Calcium 10 MG TAB PO SCH (21:44)
[2018-12-26] MEDS: Acetaminophen 325 MG TAB PO PRN (21:44)
[2018-12-26] MEDS: Montelukast Sodium 10 mg Tablet PO SCH (21:45)
[2018-12-26] MEDS: Lorazepam 1 MG TAB PO PRN (21:46)
[2018-12-27] MEDS: Propafenone HCl 150 MG TAB PO SCH ×3 (05:19→20:20)
[2018-12-27] MEDS: Levothyroxine Sodium 25 MCG TAB PO SCH (05:20)
[2018-12-27] MEDS: Polyethylene Glycol 3350 17 GM Packet PO SCH (08:34)
[2018-12-27] MEDS: guaiFENesin ER 600 MG TAB PO SCH ×2 (08:34→20:23)
[2018-12-27] MEDS: Cephalexin 500 MG CAP PO SCH ×3 (08:35→20:22)
[2018-12-27] MEDS: Aspirin 81 mg Enteric Coated Tablet PO SCH (08:35)
[2018-12-27] MEDS: Apixaban 5 MG TAB PO SCH ×2 (08:35→20:23)
[2018-12-27] MEDS: Spironolactone 25 MG TAB PO SCH (08:35)
[2018-12-27] MEDS: Furosemide 80 MG TAB PO SCH (08:35)
[2018-12-27] MEDS: Potassium Chloride 10 MEQ TAB PO SCH (08:35)
--- NOTE | 2018-12-27 10:50 | PRG ---
DATE OF SERVICE: 12/27/2018 SUBJECTIVE: The patient said he is doing good. He slept again in his bed last night. This morning, he is up in a wheelchair. 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 This really helped him. OBJECTIVE: GENERAL: The patient is alert, appears very comfortable, in no distress. VITAL SIGNS: His temperature is 96, pulse 65, blood pressure 136/82, respirations 20, O2 saturation 97% with trach collar on, his weight is 284. LUNGS: Clear. HEART: Regular rate. EXTREMITIES: Chronic 1+ edema in the lower legs. He has a chronic stasis changes with little blue discoloration of the lower legs when dependent. ASSESSMENT: 1. Generalized weakness with gait abnormality: a. Secondary to severe deconditioning, aggravated by recent hospitalizations on 10/30/2018 and then again on 12/17/2018. b. Contributed too by his severe chronic obstructive pulmonary disease and obstructive sleep apnea and obesity. c. Improved. The patient's walking up to 50 feet two times a day with his walker and standby assistance. Transfers with [id number] assistance as of 12/27/2018. 2. Hospitalized at [facility] from 12/17/2018 to 12/20/2018 for cellulitis of the right leg, unresponsive to outpatient management. 3. Cellulitis of the right leg. a. Required hospitalization at [facility] from 12/17/2018 until 11/2018. b. Resolved. We will complete his oral antibiotics on 12/30/2018. 4. Chronic obstructive pulmonary disease: a. Complicated by chronic hypoxic and hypercapnic respiratory failure, contributed too by his obstructive sleep apnea. b. Stable as of 12/27/2018. 5. Severe obstructive sleep apnea: a. Required permanent tracheostomy, placed on 06/10/2011. b. Complicated by chronic hypoxic and hypercapnic respiratory failure. c. Stable as of 12/27/2018. 6. Paroxysmal atrial fibrillation/atrial flutter. a. Controlled on Rythmol and on chronic anticoagulation with Eliquis. 7. Coronary artery disease. a. Status post bare metal stent in 2004 in the ramus. b. Presently asymptomatic. 8. Morbid obesity. 9. Severe venous insufficiency of the lower extremities. a. Complicated by chronic stasis dermatitis. b. Complicated by frequent episodes of cellulitis, most recent episode requiring hospitalization from 12/17/2018 to 12/20/2018. c. Stable as of 12/27/2018. 10. Hypertension. 11. Hypothyroidism. 12. Chronic kidney disease, stage 3. 13. Anxiety disorder. PLAN: Continue present care. Continue PT. Job ID: [id number] JF
[2018-12-27] MEDS: Atorvastatin Calcium 10 MG TAB PO SCH (20:23)
[2018-12-27] MEDS: Montelukast Sodium 10 mg Tablet PO SCH (20:23)
[2018-12-27] MEDS: Acetaminophen 325 MG TAB PO PRN (22:02)
[2018-12-28] MEDS: Propafenone HCl 150 MG TAB PO SCH ×3 (06:14→21:44)
[2018-12-28] MEDS: Levothyroxine Sodium 25 MCG TAB PO SCH (06:15)
[2018-12-28] MEDS: Furosemide 80 MG TAB PO SCH (09:24)
[2018-12-28] MEDS: Potassium Chloride 10 MEQ TAB PO SCH (09:24)
[2018-12-28] MEDS: Aspirin 81 mg Enteric Coated Tablet PO SCH (09:24)
[2018-12-28] MEDS: guaiFENesin ER 600 MG TAB PO SCH ×2 (09:24→20:13)
[2018-12-28] MEDS: Polyethylene Glycol 3350 17 GM Packet PO SCH (09:24)
[2018-12-28] MEDS: Cephalexin 500 MG CAP PO SCH ×3 (09:25→20:14)
[2018-12-28] MEDS: Spironolactone 25 MG TAB PO SCH (09:25)
[2018-12-28] MEDS: Apixaban 5 MG TAB PO SCH ×2 (09:25→20:11)
[2018-12-28] MEDS ORDERED: Sodium Chloride Irrig Solution 250 ML BOT ONE (13:12)
[2018-12-28] MEDS: Acetaminophen 325 MG TAB PO PRN (19:27)
[2018-12-28] MEDS: Atorvastatin Calcium 10 MG TAB PO SCH (20:11)
[2018-12-28] MEDS: Montelukast Sodium 10 mg Tablet PO SCH (20:14)
[2018-12-28] MEDS: Lorazepam 1 MG TAB PO PRN (21:44)
[2018-12-28] MEDS: Emollient 15 oz bottle 450 ML, Triamcinolone Acetonide 200 MG TOP SCH (21:56)
[2018-12-29] MEDS: Propafenone HCl 150 MG TAB PO SCH ×3 (05:22→22:39)
[2018-12-29] MEDS: Levothyroxine Sodium 25 MCG TAB PO SCH (05:23)
[2018-12-29] MEDS: Spironolactone 25 MG TAB PO SCH (09:03)
[2018-12-29] MEDS: guaiFENesin ER 600 MG TAB PO SCH ×2 (09:03→21:50)
[2018-12-29] MEDS: Aspirin 81 mg Enteric Coated Tablet PO SCH (09:03)
[2018-12-29] MEDS: Polyethylene Glycol 3350 17 GM Packet PO SCH (09:03)
[2018-12-29] MEDS: Cephalexin 500 MG CAP PO SCH ×3 (09:03→21:50)
[2018-12-29] MEDS: Furosemide 80 MG TAB PO SCH (09:03)
[2018-12-29] MEDS: Apixaban 5 MG TAB PO SCH ×2 (09:04→21:51)
[2018-12-29] MEDS: Emollient 15 oz bottle 450 ML, Triamcinolone Acetonide 200 MG TOP SCH (09:04)
[2018-12-29] MEDS: Potassium Chloride 10 MEQ TAB PO SCH (09:04)
[2018-12-29] MEDS: Lorazepam 1 MG TAB PO PRN (21:51)
[2018-12-29] MEDS: Acetaminophen 325 MG TAB PO PRN (21:51)
[2018-12-29] MEDS: Atorvastatin Calcium 10 MG TAB PO SCH (21:51)
[2018-12-29] MEDS: Montelukast Sodium 10 mg Tablet PO SCH (21:51)
[2018-12-30] MEDS: Levothyroxine Sodium 25 MCG TAB PO SCH (06:10)
[2018-12-30] MEDS: Propafenone HCl 150 MG TAB PO SCH (06:10)
[2018-12-30 07:21] VITALS: BP 136/78; TEMP 97
--- NOTE | 2018-12-30 08:18 | PRG ---
DATE OF SERVICE: 12/28/2018 SUBJECTIVE: The patient said he is doing okay. He is trying to sleep in his bed at night. At times, he will get up if he is having a little trouble with his breathing. OBJECTIVE: GENERAL: This morning, he is sitting up in a wheelchair. He is alert , appears in no distress. VITAL SIGNS: His temperature is 98.3, pulse 64, blood pressure 165/92, respirations 24, and O2 saturations 93% with his trach collar in place. His weight is pending. LUNGS: Clear. HEART: Regular rate. EXTREMITIES: Chronic 1+ edema with chronic stasis changes that are stable. ASSESSMENT: 1. Generalized weakness with gait abnormality: a. Secondary to severe deconditioning, aggravated by recent hospitalizations on 10/30/2018 and then again on 12/17/2018. b. Contributed too by his severe chronic obstructive pulmonary disease and obstructive sleep apnea and obesity. c. Improved. The patient's walking up to 50 feet two times a day with his walker and standby assistance. Transfers with [id number] assistance as of 12/28/2018. 2. Hospitalized at [facility] from 12/17/2018 to 12/20/2018 for cellulitis of the right leg, unresponsive to outpatient management. 3. Cellulitis of the right leg. a. Required hospitalization at [facility] from 12/17/2018 until 11/2018. b. Resolved. We will complete his oral antibiotics on 12/30/2018. 4. Chronic obstructive pulmonary disease: a. Complicated by chronic hypoxic and hypercapnic respiratory failure, contributed too by his obstructive sleep apnea. b. Stable as of 12/28/2018. 5. Severe obstructive sleep apnea: a. Required permanent tracheostomy, placed on 06/10/2011. b. Complicated by chronic hypoxic and hypercapnic respiratory failure. c. Stable as of 12/28/2018. 6. Paroxysmal atrial fibrillation/atrial flutter. a. Controlled on Rythmol and on chronic anticoagulation with Eliquis. 7. Coronary artery disease. a. Status post bare metal stent in 2004 in the ramus. b. Presently asymptomatic. 8. Morbid obesity. 9. Severe venous insufficiency of the lower extremities. a. Complicated by chronic stasis dermatitis. b. Complicated by frequent episodes of cellulitis, most recent episode requiring hospitalization from 12/17/2018 to 12/20/2018. c. Stable as of 12/28/2018. 10. Hypertension. 11. Hypothyroidism. 12. Chronic kidney disease, stage 3. 13. Anxiety disorder. PLAN: Continue present care. Encourage him to sleep in bed at night. During the day when he is sitting, it is best to sit in the lounge chairs with the feet elevated. We will start the patient on Renuka/Kenalog lotion that he uses at home daily for his legs. Job ID: [id number] [facility]
[2018-12-30] MEDS: Apixaban 5 MG TAB PO SCH (09:02)
[2018-12-30] MEDS: Spironolactone 25 MG TAB PO SCH (09:02)
[2018-12-30] MEDS: Polyethylene Glycol 3350 17 GM Packet PO SCH (09:02)
[2018-12-30] MEDS: guaiFENesin ER 600 MG TAB PO SCH (09:02)
[2018-12-30] MEDS: Furosemide 80 MG TAB PO SCH (09:02)
[2018-12-30] MEDS: Potassium Chloride 10 MEQ TAB PO SCH (09:03)
[2018-12-30] MEDS: Aspirin 81 mg Enteric Coated Tablet PO SCH (09:03)
[2018-12-30] MEDS: Cephalexin 500 MG CAP PO SCH (09:03)
[2018-12-30] MEDS: Emollient 15 oz bottle 450 ML, Triamcinolone Acetonide 200 MG TOP SCH (09:04)
--- NOTE | 2018-12-30 12:22 | DIS ---
DATE OF ADMISSION: 12/20/2018 DATE OF DISCHARGE: 12/30/2018 Admitted to [facility] on 12/20/2018 and discharged on 12/30/2018. FINAL DIAGNOSES: 1. Generalized weakness with gait abnormality: a. Secondary to severe deconditioning, aggravated by recent hospitalizations on 10/30/2018 and then again on 12/17/2018. b. Contributed too by his severe chronic obstructive pulmonary disease and obstructive sleep apnea and obesity. c. Improved. The patient walking up to 50 feet two times a day with his walker and only standby assistance. Transfer with minimal assistance as of 12/30/2018. 2. Hospitalized at [facility] from 12/17/2018 to 12/20/2018 for cellulitis of the right leg, unresponsive to outpatient management. 3. Cellulitis of the right leg. a. Required hospitalization at [facility] from 12/17/2018 until 11/2018. b. Resolved. Completed his oral antibiotics on 12/30/2018. 4. Chronic obstructive pulmonary disease: a. Complicated by chronic hypoxic and hypercapnic respiratory failure, contributed too by his obstructive sleep apnea. b. Stable as of 12/30/2018. 5. Severe obstructive sleep apnea: a. Required permanent tracheostomy, placed on 06/10/2011. b. Complicated by chronic hypoxic and hypercapnic respiratory failure. c. Stable as of 12/30/2018. 6. Paroxysmal atrial fibrillation/atrial flutter. a. Controlled on Rythmol and on chronic anticoagulation with Eliquis. 7. Coronary artery disease. a. Status post bare metal stent in 2004 in the ramus. b. Presently asymptomatic. 8. Morbid obesity. 9. Severe venous insufficiency of the lower extremities. a. Complicated by chronic stasis dermatitis. b. Complicated by frequent episodes of cellulitis, most recent episode requiring hospitalization from 12/17/2018 to 12/20/2018. c. Improved as of 12/30/2018. 10. Hypertension. 11. Hypothyroidism. 12. Chronic kidney disease, stage 3. 13. Anxiety disorder. SUMMARY: The patient is an 83-year-old white male, who has a history of COPD and severe obstructive sleep apnea that is complicated by hypoxic and hypercapnic respiratory failure chronically. He required a permanent tracheostomy for the severe obstructive airway in 2010. He also has paroxysmal atrial fibrillation, severe venous insufficiency of the lower extremities that is complicated by severe stasis dermatitis and chronic edema and periodic episodes of cellulitis. He has hypertension, hypothyroidism, chronic kidney disease, coronary artery disease that required a stent in 2004 and has been asymptomatic since then. He has stage 3 chronic kidney disease. He resides at home, where his is his primary caregiver. He requires assistance with his ADLs. He is ambulatory very short distances with his walker, but usually gets around in a wheelchair. He sleeps in a lounge chair with his feet elevated at nighttime and he has O2 that he sleeps under and uses as needed. The patient had developed increasing swelling and developed a cellulitis of his right leg that did not respond to outpatient antibiotics with clindamycin. The leg got much worse and very red and hot, and required hospitalization at [facility] from 12/17 until 12/20/2018. There, he was treated with IV antibiotics and he also underwent a venous Doppler of the lower extremities and this showed no evidence of DVT. He was initially treated with bedrest, elevation of the leg and was already on anticoagulants due to the paroxysmal atrial fibrillation. The cellulitis gradually improved and was resolving and he was switched to oral antibiotics. He was left very weakened. His lungs were stable. He was very weak and deconditioned. He was sent to [facility] on 12/20/2017. On initial exam, he had the chronic stasis change of his legs with blue discoloration, particularly when dependent. There were some very small superficial breakdown that were all healing on the anterior legs. The redness and increased heat had resolved. He was continued on the oral antibiotics that is cephalexin 3 times a day, which were to be continued until 12/30/2018. He was continued on his routine medications, neb treatments and his O2 was administered with a trach collar. He was on his BiPAP at nighttime. Physical Therapy worked with him and he made gradual improvement to where he was walking up to 50 feet two times a day with his rolling walker, some days not quite as much. He just required a caregiver assist as long as he had his walker. He required his caregiver assist with transfers. His lungs remain clear. His legs remain stable, which is chronic 1+ edema of the lower legs with no evidence of any recurrence. He completed cephalexin. By 12/30, he said he was ready to go home. He thought he and his could manage fine at home now. His condition had improved such that it felt like he could be managed at home. We will arrange for PT to sweet pickle maker on his care and continue with in-home PT. He has in-home O2 that he will use at nighttime and p.r.n. DISPOSITION: DIET: Regular diet. No added salt. ACTIVITIES: Up in a wheelchair as tolerated during the day. Will need to keep his feet elevated. He sleeps in a lounge chair at night and he understands he needs to keep the legs elevated at least to the level of the heart. Ambulate with the use of his walker and up in wheelchair as tolerated. O2 by trach collar when sleeping and p.r.n. CPAP to use when sleeping. MEDICATIONS: 1. Acetaminophen 325 mg two every 4 hours as needed. 2. Eliquis 5 mg b.i.d. 3. Aspirin 81 mg daily. 4. Atorvastatin 10 mg at bedtime. 5. Diltiazem 120 mg daily. 6. Furosemide 80 mg in the morning. 7. Mucinex 1200 mg b.i.d. 8. Ipratropium-albuterol by nebulizer q.i.d. and every 2 hours as needed. 9. Renuka lotion with Kenalog 15 ounces/200 mg applied to the legs daily. 10. Levothyroxine 25 mcg daily. 11. Lorazepam 1 mg b.i.d., if needed. 12. Milk of magnesia 30 mL daily as needed. 13. Singulair 10 mg daily. 14. MiraLAX 17 g 8 ounces of water daily. 15. Potassium chloride 10 mEq daily. 16. Rythmol 225 mg every 8 hours. 17. Spironolactone 25 mg daily. ACTIVITIES: Trach care: Remove and clean the intracanula of the trach twice daily and more often as needed. See his metal bumper, Dr. Hammond at least every 6 weeks for change out of trach or as he recommends. FOLLOWUP: We will arrange for Home Health to see the patient and arrange in- home therapy in 2 weeks. We will need to CBC and a basic metabolic panel. We will see the patient in followup at my office in 2 weeks. CODE STATUS: Full code. Job ID: [id number] MTDD
== END 2018-12-30 10:35 | disposition home or self-care (01) | DRG 603 ==
LOC: MADMS 17:42
PROVIDERS: ADMIT Family Medicine; ATTEND Family Medicine
PROC: 5A1935Z Respiratory Ventilation, Less than 24 Consecutive Hours (ICD-10-PCS; principal; 2018-12-20)
DX: L03.115 Cellulitis of right lower limb (principal); J96.11 Chronic respiratory failure with hypoxia; J96.12 Chronic respiratory failure with hypercapnia; J44.9 Chronic obstructive pulmonary disease, unspecified; G47.33 Obstructive sleep apnea (adult) (pediatric); I25.10 Atherosclerotic heart disease of native coronary artery without angina pectoris; E78.00 Pure hypercholesterolemia, unspecified; E03.9 Hypothyroidism, unspecified; I12.9 Hypertensive chronic kidney disease with stage 1 through stage 4 chronic kidney disease, or unspecified chronic kidney disease; M19.90 Unspecified osteoarthritis, unspecified site; R53.1 Weakness; R26.9 Unspecified abnormalities of gait and mobility; I48.0 Paroxysmal atrial fibrillation; F41.9 Anxiety disorder, unspecified; N18.3 Chronic kidney disease, stage 3 (moderate); I87.2 Venous insufficiency (chronic) (peripheral); R53.81 Other malaise; E66.01 Morbid (severe) obesity due to excess calories; Z93.0 Tracheostomy status; Z87.891 Personal history of nicotine dependence; Z79.82 Long term (current) use of aspirin; Z79.899 Other long term (current) drug therapy; Z88.8 Allergy status to other drugs, medicaments and biological substances; Z68.37 Body mass index [BMI] 37.0-37.9, adult
CPT/HCPCS: 36415; 80048; 85025; 94640; J3301; J7620

== ENCOUNTER 2019-01-14 09:22 | Emergency (ER) | payer MEDICARE, BC ==
[~2019-01-14 09:22] MED LIST: Sodium Chloride Irrig Solution 250 ML BOT ONE
[2019-01-14] MEDS ORDERED: Cephalexin 500 MG CAP ONE (10:25)
== END 2019-01-14 13:00 | disposition home or self-care (01) ==
LOC: MADERS 09:22
DX: S81.812A Laceration without foreign body, left lower leg, initial encounter (principal); I48.91 Unspecified atrial fibrillation; W01.0XXA Fall on same level from slipping, tripping and stumbling without subsequent striking against object, initial encounter
CPT/HCPCS: 99283; A4353

== ENCOUNTER 2019-01-21 10:39 | Emergency (ER) | payer MEDICARE, BC ==
[2019-01-21] MEDS ORDERED: cefTRIAXone\\ROCEPHIN 1 GM VIAL ONE (11:05)
[2019-01-21 11:18] LABS: #Eosinphils 0.1 thou/uL (0.0-0.7); #Lymphocytes 1.4 thou/uL (1.20-3.40); #Monocytes 0.7 thou/uL (0.11-0.59); #Neutrophils 5.2 thou/uL (1.40-6.50); %Basophils 0.4 % (0.0-1.0); %Eosinophils 1.9 % (0.0-10.0); %Lymphocytes 18.7 % (21.0-51.0); %Monocytes 9.8 % (0.0-10.0); %Neutrophils 69.2 % (42.0-75.0); Hemoglobin 11.8 g/dL (14.0-18.0); Mean Corpuscular HGB CONC 30.4 g/dL (32.0-36.0); Mean Corpuscular Hemoglobin 27.6 pg (27.0-31.0); Mean Corpuscular Volume 90.8 fL (78.0-98.0); Mean Platelet Volume 7.5 fL (7.4-10.4); Platelet Count 215 thou/uL (130-400); RBC Distribution Width 14.6 % (11.5-14.5); Red Blood Cell (RBC) Count 4.27 mill/uL (4.70-6.10); White Blood Cell (WBC) Count 7.5 thou/uL (4.8-10.8)
[2019-01-21 11:33] LABS: ALT (SGPT) 13 U/L (8-55); AST (SGOT) 16 U/L (5-34); Albumin 3.6 g/dL (3.4-4.8); Alkaline Phosphatase 101 U/L (40-150); Anion Gap 12 mmol/L (10-20); BUN (Urea Nitrogen) 12 mg/dL (8.4-25.7); Bilirubin, Total 0.3 mg/dL (0.2-1.2); Calc. Creatinine Clearance 0 mL/min (70-130); Calcium 9.6 mg/dL (7.8-10.44); Carbon Dioxide 35 mmol/L (23-31); Chloride 91 mmol/L (98-107); Estimated GFR-MDRD 63; Globulin 3.2 g/dL (2.4-3.5); Glucose 93 mg/dL (83-110); Potassium 4.4 mmol/L (3.5-5.1); Protein, Total 6.8 g/dL (5.8-8.1); Sodium 134 mmol/L (136-145)
--- NOTE | 2019-01-21 12:06 | RAD ---
CHEST ONE VIEW: History: Dyspnea. Comparison: 01-05-19 FINDINGS: Tracheostomy tube in good position. Heart size is mildly enlarged. Mild pulmonary venous congestion. No pneumothorax or large effusion. IMPRESSION: Similar examination. Pulmonary venous congestion. POS: [facility]
--- NOTE | 2019-01-21 12:26 | RAD ---
LEFT TIBIA FIBULA 2 VIEWS: HISTORY: Cellulitis. COMPARISON: None. FINDINGS: There is severe medial compartment narrowing of the left knee with genu varus. Extensive superficial soft tissue swelling throughout the lower extremity. No acute displaced fracture is appreciated. IMPRESSION: 1. Findings suggesting cellulitis. 2. 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 POS: [facility]
== END 2019-01-21 13:08 | disposition short-term general hospital (02) ==
LOC: MADERS 10:39
DX: L03.116 Cellulitis of left lower limb (principal); J44.9 Chronic obstructive pulmonary disease, unspecified; I48.91 Unspecified atrial fibrillation; I10 Essential (primary) hypertension
CPT/HCPCS: 71045; 80053; 83605; 83880; 84484; 85025; 87040; 87804; 93005; 94640; 94760; 96374; J0696; J7620

== ENCOUNTER 2019-01-24 18:25 | Inpatient (IN) | payer MEDICARE, BC ==
[2019-01-24] MEDS ORDERED: Milk Of Magnesia 30 ML UDCUP PO PRN (20:22)
[2019-01-24] MEDS: Apixaban 5 MG TAB PO SCH (21:42)
[2019-01-24] MEDS: Acetaminophen 325 MG TAB PO PRN (21:42)
[2019-01-24] MEDS: guaiFENesin ER 600 MG TAB PO SCH (21:42)
[2019-01-24] MEDS: Atorvastatin Calcium 10 MG TAB PO SCH (21:42)
[2019-01-24] MEDS: Montelukast Sodium 10 mg Tablet PO SCH (21:42)
[2019-01-24] MEDS: Propafenone HCl 150 MG TAB PO SCH (21:42)
[2019-01-25] MEDS: Propafenone HCl 150 MG TAB PO SCH ×3 (05:32→22:02)
[2019-01-25] MEDS: Levothyroxine Sodium 25 MCG TAB PO SCH (05:33)
[2019-01-25] MEDS: Apixaban 5 MG TAB PO SCH ×2 (08:45→20:35)
[2019-01-25] MEDS: Aspirin 81 mg Enteric Coated Tablet PO SCH (08:45)
[2019-01-25] MEDS: Spironolactone 25 MG TAB PO SCH (08:45)
[2019-01-25] MEDS: guaiFENesin ER 600 MG TAB PO SCH ×2 (08:46→20:35)
[2019-01-25] MEDS: Furosemide 80 MG TAB PO SCH (08:46)
[2019-01-25] MEDS: Polyethylene Glycol 3350 17 GM Packet PO SCH (08:47)
[2019-01-25] MEDS: Cephalexin 500 MG CAP PO SCH ×3 (13:15→20:35)
[2019-01-25] MEDS: Atorvastatin Calcium 10 MG TAB PO SCH (20:35)
[2019-01-25] MEDS: Montelukast Sodium 10 mg Tablet PO SCH (20:35)
[2019-01-26] MEDS: Acetaminophen 325 MG TAB PO PRN (00:18)
[2019-01-26] MEDS: Propafenone HCl 150 MG TAB PO SCH ×3 (04:59→21:05)
[2019-01-26] MEDS: Levothyroxine Sodium 25 MCG TAB PO SCH (04:59)
[2019-01-26 05:32] LABS: #Basophils 0.1 thou/uL (0.0-0.2); #Eosinphils 0.1 thou/uL (0.0-0.7); #Lymphocytes 2.5 thou/uL (1.20-3.40); #Monocytes 0.6 thou/uL (0.11-0.59); #Neutrophils 3.3 thou/uL (1.40-6.50); %Basophils 1.6 % (0.0-1.0); %Eosinophils 1.8 % (0.0-10.0); %Lymphocytes 37.7 % (21.0-51.0); %Monocytes 9.3 % (0.0-10.0); %Neutrophils 49.7 % (42.0-75.0); Hemoglobin 13.3 g/dL (14.0-18.0); Mean Corpuscular HGB CONC 32.4 g/dL (32.0-36.0); Mean Corpuscular Hemoglobin 29.2 pg (27.0-31.0); Mean Corpuscular Volume 90.1 fL (78.0-98.0); Mean Platelet Volume 6.7 fL (7.4-10.4); Platelet Count 223 thou/uL (130-400); RBC Distribution Width 14.9 % (11.5-14.5); Red Blood Cell (RBC) Count 4.56 mill/uL (4.70-6.10); White Blood Cell (WBC) Count 6.7 thou/uL (4.8-10.8)
[2019-01-26 05:44] LABS: Anion Gap 18 mmol/L (10-20); BUN (Urea Nitrogen) 18 mg/dL (8.4-25.7); Calc. Creatinine Clearance 97 mL/min (70-130); Calcium 9.6 mg/dL (7.8-10.44); Carbon Dioxide 33 mmol/L (23-31); Chloride 94 mmol/L (98-107); Estimated GFR-MDRD 69; Glucose 82 mg/dL (83-110); Potassium 3.9 mmol/L (3.5-5.1); Sodium 141 mmol/L (136-145)
[2019-01-26] MEDS: Spironolactone 25 MG TAB PO SCH (08:30)
[2019-01-26] MEDS: Aspirin 81 mg Enteric Coated Tablet PO SCH (08:31)
[2019-01-26] MEDS: Cephalexin 500 MG CAP PO SCH ×4 (08:31→21:04)
[2019-01-26] MEDS: Apixaban 5 MG TAB PO SCH ×2 (08:31→21:04)
[2019-01-26] MEDS: Furosemide 80 MG TAB PO SCH (08:40)
[2019-01-26] MEDS: guaiFENesin ER 600 MG TAB PO SCH ×2 (08:40→21:04)
[2019-01-26] MEDS: Polyethylene Glycol 3350 17 GM Packet PO SCH (08:41)
[2019-01-26] MEDS: Keri Lotion 15 oz BOT TOP SCH (08:55)
[2019-01-26] MEDS: Montelukast Sodium 10 mg Tablet PO SCH (21:04)
[2019-01-26] MEDS: Atorvastatin Calcium 10 MG TAB PO SCH (21:04)
[2019-01-26] MEDS: Lorazepam 1 MG TAB PO PRN (21:05)
[2019-01-27] MEDS: Propafenone HCl 150 MG TAB PO SCH ×3 (05:45→22:26)
[2019-01-27] MEDS: Levothyroxine Sodium 25 MCG TAB PO SCH (05:45)
[2019-01-27] MEDS: Spironolactone 25 MG TAB PO SCH (08:26)
[2019-01-27] MEDS: Aspirin 81 mg Enteric Coated Tablet PO SCH (08:26)
[2019-01-27] MEDS: Apixaban 5 MG TAB PO SCH ×2 (08:26→20:26)
[2019-01-27] MEDS: Cephalexin 500 MG CAP PO SCH ×4 (08:27→20:27)
[2019-01-27] MEDS: guaiFENesin ER 600 MG TAB PO SCH ×2 (08:29→20:27)
[2019-01-27] MEDS: Keri Lotion 15 oz BOT TOP SCH (08:29)
[2019-01-27] MEDS: Furosemide 80 MG TAB PO SCH (08:29)
[2019-01-27] MEDS: Polyethylene Glycol 3350 17 GM Packet PO SCH (08:30)
--- NOTE | 2019-01-27 10:06 | HP ---
dmitted to [facility] late on the evening of 01/24/2019. CHIEF COMPLAINT: Weakness and wounds on his left leg. HISTORY OF PRESENT ILLNESS: The patient is an 83-year-old white male, who has a history of COPD and severe obstructive sleep apnea, complicated by hypoxic and hypercapnic respiratory failure chronically. He required a permanent tracheostomy for the severe obstructive airway in 2010. Since then, he has been managed and has done well with the permanent tracheostomy. He also has a history of paroxysmal atrial fibrillation and severe venous insufficiency of the lower extremities, complicated by severe stasis dermatitis and chronic edema and periodic episodes of cellulitis. He has hypertension, hypothyroidism, chronic kidney disease, and coronary artery disease that required a stent in 2003, but since then he has remained asymptomatic. He has stage 3 chronic kidney disease. He resides at his home, where his is his primary caregiver, and he needs assistance with his ADLs. He usually gets around in a wheelchair with help and can ambulate only a few steps. He requires continuous O2. The patient had been hospitalized at [facility] from 12/17/2018 to 12/20/2018 for a cellulitis of the right lower leg that had been unresponsive to outpatient management. He was treated there with IV antibiotics and then he was transferred to [facility], where he completed his oral antibiotics, and then at [facility], Physical Therapy continued to work with him. He was discharged home on 12/30/2018. The patient did well at home and then sustained two big lacerations to the left lower leg that occurred when he was trying to get into his truck and slipped and hit the anterior lower leg on the running board. He was seen for this in the emergency room on 01/14. The lacerations were, one was 5 cm running across the leg and the other was 6 cm, one was more superficial with a tear of the skin and the other was deep into the subcutaneous tissue. The ER doctor elected not to primarily close these due to the extensive edema of the leg and thin skin. It was felt that these would heal by secondary intention. Home Health assisted with his care with initially wet-to- dry dressings on the leg. The leg gradually improved and was doing better. Then on 01/20/2019, he developed redness and increased swelling in that left lower leg. The wounds were doing very well. He was placed on clindamycin for the cellulitis, and by the following date of 01/21/2019, the redness in the left lower leg was much increased. The leg had increased edema and increased heat. He was hospitalized at [facility] from 01/21/2019 until 01/24/2019 for the cellulitis of the lower leg. He was treated with vancomycin and Zosyn with quick resolution of the cellulitis. The wounds were locally dressed and showed marked improvement. He was improved, but still left very weak and still needed continued wound care. He was discharged to [facility] on the evening of 01/24/2019 for wound care. Additionally, while he was hospitalized, his had a fall from a stroke leaving her with left lower leg weakness and sustained a closed nondisplaced fracture of the distal fibula requiring an application of a walking cast and then she was hospitalized and transferred to [facility] for therapy. So, he has no primary caregiver presently at home. The patient was seen early on the morning of 01/25/2019, and he said he thought he was doing very well. His leg is better. The swelling in the leg is much improved, and he said he is not having the pain in the leg and all the redness has gone away. He is just weak and here for therapy. PAST HISTORY: Hospitalized at [facility] for cellulitis of the left leg from 12/17/2018 until 12/20/2018. Hospitalized at [facility] from 12/20/2018 to 12/30/2018, for fall with large laceration to the left lower leg on 01/14/2019. Hospitalized at [facility] from 01/21/2019 to 01/24/2019 for cellulitis of the left leg and wound care. Hospitalized at [facility] from 10/30/2018 until 11/04/2018 for atrial flutter and acute on chronic respiratory failure. The patient has hypertension, severe COPD with chronic hypoxic and hypercapnic respiratory failure, and severe sleep apnea that required permanent tracheostomy since 2010. The tracheostomy tube requires change out periodically , usually 6 to 12 weeks. The inner cannula has to be cleaned twice a day and p.r.n. The patient has paroxysmal atrial fibrillation and flutter, for which he is on Eliquis and Rythmol. He has coronary artery disease, for which he had a bare metal stent placed in the ramus in 2003. He is a former smoker. He has a history of a GI bleed years previously. He has severe venous insufficiency of the lower extremity and chronic stasis dermatitis frequently complicated by cellulitis. He has hypercholesterolemia, hypothyroidism, and chronic kidney disease. Historically , he has diabetes, but presently on no medication. Hemoglobin A1c 5.2 on 10/08. He has generalized weakness, gait abnormality, morbid obesity, and osteoarthritis. The patient had an EGD with a gastrostomy tube placement in January of 2012, tube was later removed. Colonoscopy in 2010 showed diverticular disease of the colon and hemorrhoids. Tracheostomy placed on 06/10/2011. Cholecystectomy in April of 2000. PRESENT MEDICINES: 1. Acetaminophen 325 mg two every 4 hours as needed. 2. Eliquis 5 mg b.i.d. 3. Aspirin 81 mg daily. 4. Atorvastatin 10 mg at bedtime daily. 5. Diltiazem CD 120 mg daily. 6. Furosemide 80 mg in the morning. 7. Mucinex 1200 mg b.i.d. 8. Ipratropium/albuterol by nebulizer q.i.d. and every 2 hours as needed. 9. Renuka/Kenalog 15 oz/ 200 mg applied to the legs daily. 10. Levothyroxine 25 mcg daily. 11. Lorazepam 1 mg b.i.d. as needed. 12. Singulair 10 mg daily. 13. MiraLAX 17 g in 8 ounces of water daily. 14. KCl 10 mEq daily. 15. Rythmol 225 mg every 8 hours. 16. Spironolactone 25 mg daily. ALLERGIES: TAMIFLU CAUSES ITCHING. REVIEW OF SYSTEMS: GENERAL: The patient has not had a recent weight gain or loss. He has had no chills or fever. HEAD AND NECK: No complaints. PULMONARY: His breathing is at his baseline. He requires his oxygen continuous. CARDIOVASCULAR: No chest pain. GI: No nausea, vomiting, or change in bowel habits. Appetite excellent. : No complaints. NEUROLOGIC/PSYCHIATRIC: No complaints. ADLs: The patient requires assistance with all of his ADLs. He requires continuous supplemental O2 by trach collar. He is continent of urine and stools. He ambulates very short distance with a walker. Most the time, he gets around in a wheelchair and requires someone to push this. HABITS: The patient smoked years ago, but has stopped many years ago. Alcohol, none. SOCIAL HISTORY: The patient lives at home, where his is his primary caregiver. is presently hospitalized after a stroke leaving her with a left lower extremity weakness and a closed nondisplaced fracture of the distal left fibula, which is being managed with a removable walking boot. CODE STATUS: Full code. PHYSICAL EXAMINATION: GENERAL: Shows a very pleasant 83-year-old white male, who is sitting up in his bedside chair. His leg has just been dressed. He is alert, talkative, appears comfortable, in no distress. He has a permanent trach and has a trach collar over this providing supplemental O2. VITAL SIGNS: Temperature of 96.7, pulse 58, respirations 20, blood pressure 112 /57, and O2 saturation 96% with a trach collar with 6 L of O2 per minute. His weight is 277. His height is 70 inches. HEENT: Head, normocephalic and atraumatic. Ears, there is some cerumen obscuring the TM visualization. Eyes; pupils are equal, round, and reactive. Sclerae nonicteric. Nose normal. Mouth and throat normal. NECK: Carotids are equal and strong. No bruits. The patient has a permanent trach. There is no surrounding redness. There is no increased mucus around or at the opening of the tracheostomy. LUNGS: Clear. HEART: Regular rate. No murmurs. ABDOMEN: Obese with no organomegaly nor areas of tenderness. EXTREMITIES: Lower extremities, the patient has chronic stasis change with kind of a bluish hue when the legs are dependent. Presently, there is just trace edema in the legs. Presently, his legs look better than they have been a while after the multiple hospital days with them elevated. Left lower leg, the dressing on the anterior leg was removed. The patient has a laceration running transversely across the proximal third of the lower leg that is about 6 cm in diameter and looks very clean and now superficial. There is no drainage just below. Just distal to this, there is a second laceration running transversely for about 5 cm. This wound is healing. There is a skin separation of about 1.5 cm over the midportion of this wound, but it is healing well with no signs of infection. NEUROLOGIC: The patient is alert and oriented x3. He has generalized weakness , but no focal weakness. IMPRESSION: 1. Generalized weakness with gait abnormality. a. Secondary to severe deconditioning, aggravated by recent hospitalization from a laceration of the left leg. b. Contributed too by severe chronic obstructive pulmonary disease and obstructive sleep apnea and obesity. c. Requires assistance with all his ADLs. 2. Hospitalized at [facility] from 01/21/2019 to 01/24/2019 for cellulitis of the left lower leg and wound to the left leg. 3. Cellulitis of the left lower leg. a. Required hospitalization from 01/21/2019 to 01/24/2019. b. Resolved as of 01/25/2019. 4. Two lacerations to the left lower leg. a. Occurred from hitting on a running board of a truck while trying to get into the truck that occurred on 01/14/2019. b. Allowing to heal by secondary intention. c. Healing well as of 01/25/2019. 5. Chronic obstructive pulmonary disease. a. Complicated by chronic hypoxic and hypercapnic respiratory failure and contributed too by his severe obstructive sleep apnea. b. Stable as of 01/25/2019. 6. Severe obstructive sleep apnea. a. Required permanent tracheostomy, placed on 06/10/2011. b. Complicated by chronic hypoxic and hypercapnic respiratory failure. c. Stable and well controlled as of 01/25/2019. 7. Paroxysmal atrial fibrillation/atrial flutter. a. Controlled on Rythmol and on anticoagulant Eliquis. 8. Coronary artery disease. a. Status post bare metal stent in 2004 in the ramus. b. Presently asymptomatic. 9. Morbid obesity. 10. Severe venous insufficiency of the lower extremities. a. Complicated by chronic stasis dermatitis. b. Complicated by frequent episodes of cellulitis. Most recent episodes; one requiring hospitalization from 12/17/2018 to 12/20/2018 and again from 01/21/2019 until 01/25/2019. 11. Hypertension. 12. Hypothyroidism. 13. Chronic kidney disease. 14. Anxiety disorder. PLAN: The patient had been admitted to the hospital for his generalized weakness. PT and OT will work with him. Also, he has been admitted to the hospital for the wound care. We will continue the patient's home medications. We will continue the patient on an oral antibiotic use and cephalexin since he was just on IV antibiotics yesterday for a 4-day period. We will extend this for probably another 7 days, use the cephalexin. Job ID: [id number] [facility]
--- NOTE | 2019-01-27 13:56 | PRG ---
DATE OF SERVICE: 01/26/2019 SUBJECTIVE: The patient said he slept in his bed last night and said he is doing fine. He has no complaint. His legs are not hurting. OBJECTIVE: GENERAL: The patient is sitting up in bedside chair. He is alert, talkative, appears comfortable, and in no distress. VITAL SIGNS: His temperature is 97, pulse 62, respirations 20, O2 saturation 95% with the trach collar on 5 L, and blood pressure 106/59. His weight is stable at 277. LUNGS: Clear. HEART: Regular rate. EXTREMITIES: Just trace edema. Legs edema fishman are excellent compared to usual. The dressing is intact that was applied yesterday with no drainage. LABORATORY DATA: His lab shows an H and H of 13.3 and 41.1, white cell count 6700 with 50% segs, 38% lymphocytes, and a platelet count of 223,000. Sodium is 141, potassium 3.9, BUN 18, creatinine 1.03, GFR 69, and glucose is 82. ASSESSMENT: 1. Generalized weakness and deconditioning. a. Improved as of 01/26/2019. 2. Cellulitis of the left lower leg. a. Recurrent. b. Resolved as of 01/26/2019. 3. Lacerations to the left lower leg from a fall. a. Healing by secondary intention and doing very well as of 01/26/2019. 4. Obstructive sleep apnea. a. Severe, complicated by hypoxic and hypercapnic respiratory failure. b. Required permanent trach. 5. Chronic obstructive pulmonary disease. a. Complicated by chronic hypoxic and hypercapnic respiratory failure, controlled. 6. Obesity. 7. Severe venous insufficiency of the lower extremities. a. Presently, well controlled with the increased rest and elevation of the legs. PLAN: Continue present care. Continue PT and OT. Job ID: [id number]
--- NOTE | 2019-01-27 13:57 | PRG ---
DATE OF SERVICE: 01/27/2019 SUBJECTIVE: The patient is doing good. He sleeps in his bed at night and keeping his legs elevated in the day. This has certainly helped control the swelling in his legs. He has had no trouble breathing. He did do for a while without his supplemental O2 during the day and we will do that again today. The nurses monitor his O2 saturation when he has the oxygen off. OBJECTIVE: GENERAL: The patient is sitting up in a chair, just gotten up out of bed. He is alert, appears comfortable, and in no distress. VITAL SIGNS: His temperature is 96.9, pulse 55, respirations 22, O2 saturation 97% on room air, and blood pressure 115/67. LUNGS: Clear. HEART: Regular rate. Trach site looks clean. The nurse is just cleaning the intra cannula. EXTREMITIES: The lower extremities, the dressings on the left leg is clean, due to be changed tomorrow. There is no edema in the legs. ASSESSMENT: 1. Generalized weakness and deconditioning. a. Improved as of 01/25. 2. Cellulitis of the left lower leg. a. Resolved with no signs of recurrence as of 01/27. 3. Two large lacerations to the left leg, healing by secondary intention. a. Doing well as of 01/27. 4. Severe obstructive sleep apnea. a. Status post tracheostomy. b. Doing well. c. Complicated by chronic hypercapnic and hypoxic respiratory failure. 5. Severe chronic obstructive pulmonary disease. a. Complicated by hypoxic and hypercapnic respiratory failure, controlled. 6. Severe venous insufficiency of the lower extremities, controlled with elevation of the leg. PLAN: Continue present care. Continue PT/OT. Continue wound care. Job ID: [id number]
[2019-01-27] MEDS: Atorvastatin Calcium 10 MG TAB PO SCH (20:26)
[2019-01-27] MEDS: Montelukast Sodium 10 mg Tablet PO SCH (20:27)
[2019-01-28] MEDS: Lorazepam 1 MG TAB PO PRN ×2 (02:17→20:38)
[2019-01-28] MEDS: Levothyroxine Sodium 25 MCG TAB PO SCH (06:18)
[2019-01-28] MEDS: Propafenone HCl 150 MG TAB PO SCH ×3 (06:18→21:03)
[2019-01-28] MEDS: guaiFENesin ER 600 MG TAB PO SCH ×2 (07:48→20:39)
[2019-01-28] MEDS: Aspirin 81 mg Enteric Coated Tablet PO SCH (07:48)
[2019-01-28] MEDS: Spironolactone 25 MG TAB PO SCH (07:48)
[2019-01-28] MEDS: Furosemide 80 MG TAB PO SCH (07:48)
[2019-01-28] MEDS: Apixaban 5 MG TAB PO SCH ×2 (07:48→20:39)
[2019-01-28] MEDS: Keri Lotion 15 oz BOT TOP SCH (07:49)
[2019-01-28] MEDS: Cephalexin 500 MG CAP PO SCH ×4 (07:49→20:39)
[2019-01-28] MEDS: Polyethylene Glycol 3350 17 GM Packet PO SCH (07:50)
--- NOTE | 2019-01-28 12:18 | PRG ---
DATE OF SERVICE: 01/28/2019 SUBJECTIVE: The patient said he is doing good this morning. His breathing is good. His leg feels good. He still sleeping in bed. Last night, he was little restless in the bed. OBJECTIVE: GENERAL: The patient is sitting up on the edge of the bed, taking his medicine. He is alert and talkative, appears comfortable, and in no distress. VITAL SIGNS: Temperature 97.4, pulse 57, respirations 22, O2 saturation 90% on room air; when he has a trach collar and O2 on, it was up to 97% last evening. Blood pressure 109/57. LUNGS: Clear. HEART: Regular rate. Trach is in place and clean. EXTREMITIES: Lower extremities, there is no edema. The wound on the right leg, dressing was removed. The dressing against the wound stuck a little and when it was removed, created a little bleeding. The wound looks clean. LABORATORY DATA: His FBS this morning was 105. ASSESSMENT: 1. Generalized weakness with gait abnormality. a. Secondary to severe deconditioning, aggravated by recent hospitalization from a laceration of the left leg. b. Contributed too by severe chronic obstructive pulmonary disease and obstructive sleep apnea and obesity. c. Requires assistance with all his ADLs. d. Improved as of 01/28/2019. 2. Hospitalized at [facility] from 01/21/2019 to 01/24/2019 for cellulitis of the left lower leg and wound to the left leg. 3. Cellulitis of the left lower leg. a. Required hospitalization from 01/21/2019 to 01/24/2019. b. Resolved as of 01/25/2019. 4. Two lacerations to the left lower leg. a. Occurred from hitting on a running board of a truck while trying to get into the truck that occurred on 01/14/2019. b. Allowing to heal by secondary intention. c. Improving, but still has areas that need to re-epithelialize as of 2018. There are no signs of infection. 5. Chronic obstructive pulmonary disease. a. Complicated by chronic hypoxic and hypercapnic respiratory failure and contributed too by his severe obstructive sleep apnea. b. Stable as of 01/28/2019. 6. Severe obstructive sleep apnea. a. Required permanent tracheostomy, placed on 06/10/2011. b. Complicated by chronic hypoxic and hypercapnic respiratory failure. c. Stable and well controlled as of 01/25/2019. 7. Paroxysmal atrial fibrillation/atrial flutter. a. Controlled on Rythmol and on anticoagulant Eliquis. 8. Coronary artery disease. a. Status post bare metal stent in 2004 in the ramus. b. Presently asymptomatic. 9. Morbid obesity. 10. Severe venous insufficiency of the lower extremities. a. Complicated by chronic stasis dermatitis. b. Complicated by frequent episodes of cellulitis. Most recent episodes; one requiring hospitalization from 12/17/2018 to 12/20/2018 and again from 01/21/2019 until 01/25/2019. c. Resolved as of 01/28/2019. 11. Hypertension. 12. Hypothyroidism. 13. Chronic kidney disease. 14. Anxiety disorder. PLAN: The patient is doing well. We will continue present care. Continue PT/OT. Wound care will change as follows. Clean the wound daily with gently washing with saline, then apply Silvadene cream, cover with an Adaptic and Mepilex and elastic gauze. Job ID: [id number] [facility]
[2019-01-28] MEDS: Atorvastatin Calcium 10 MG TAB PO SCH (20:39)
[2019-01-28] MEDS: Montelukast Sodium 10 mg Tablet PO SCH (20:39)
[2019-01-29] MEDS: Acetaminophen 325 MG TAB PO PRN ×3 (01:41→23:04)
[2019-01-29] MEDS: Propafenone HCl 150 MG TAB PO SCH ×3 (05:12→20:59)
[2019-01-29] MEDS: Levothyroxine Sodium 25 MCG TAB PO SCH (05:12)
[2019-01-29] MEDS: Cephalexin 500 MG CAP PO SCH ×4 (07:59→20:53)
[2019-01-29] MEDS: Polyethylene Glycol 3350 17 GM Packet PO SCH (07:59)
[2019-01-29] MEDS: Apixaban 5 MG TAB PO SCH ×2 (08:00→20:53)
[2019-01-29] MEDS: guaiFENesin ER 600 MG TAB PO SCH ×2 (08:00→20:52)
[2019-01-29] MEDS: Furosemide 80 MG TAB PO SCH (08:00)
[2019-01-29] MEDS: Keri Lotion 15 oz BOT TOP SCH (08:00)
[2019-01-29] MEDS: Aspirin 81 mg Enteric Coated Tablet PO SCH (08:00)
[2019-01-29] MEDS: Spironolactone 25 MG TAB PO SCH (08:00)
[2019-01-29] MEDS: Atorvastatin Calcium 10 MG TAB PO SCH (20:53)
[2019-01-29] MEDS: Montelukast Sodium 10 mg Tablet PO SCH (20:53)
[2019-01-30] MEDS: Levothyroxine Sodium 25 MCG TAB PO SCH (05:26)
[2019-01-30] MEDS: Propafenone HCl 150 MG TAB PO SCH ×3 (05:26→21:21)
[2019-01-30] MEDS: Spironolactone 25 MG TAB PO SCH (07:41)
[2019-01-30] MEDS: Furosemide 80 MG TAB PO SCH (07:41)
[2019-01-30] MEDS: Polyethylene Glycol 3350 17 GM Packet PO SCH (08:31)
[2019-01-30] MEDS: Aspirin 81 mg Enteric Coated Tablet PO SCH (08:32)
[2019-01-30] MEDS: Cephalexin 500 MG CAP PO SCH ×4 (08:32→21:20)
[2019-01-30] MEDS: guaiFENesin ER 600 MG TAB PO SCH ×2 (08:32→21:20)
[2019-01-30] MEDS: Apixaban 5 MG TAB PO SCH ×2 (08:32→21:19)
[2019-01-30] MEDS: Emollient 15 oz bottle 450 ML, Triamcinolone Acetonide 200 MG TOP PRN ×2 (08:34→08:36)
[2019-01-30] MEDS: Keri Lotion 15 oz BOT TOP SCH (08:39)
--- NOTE | 2019-01-30 10:30 | PRG ---
DATE OF SERVICE: 01/30/2019 SUBJECTIVE: The patient says he is doing good. He is breathing. He has been doing good. His legs are feeling good. He thinks the swelling in his leg is much improved and he has lost a little weight. Says his leg where the wound is present, feels good. OBJECTIVE: GENERAL: The patient has just gotten up to the side of the bed with his feet on the floor. He is alert, talkative, appears very comfortable and in no distress. VITAL SIGNS: His temperature is 96.4, pulse 56, respirations 22, O2 saturation 99% on a trach collar, blood pressure 119/57. LUNGS: Clear. Breath sounds are little coarse. There is no rhonchi or wheeze. Trach site looks clean. HEART: Regular rate. EXTREMITIES: Just trace edema in the lower leg and the chronic stasis changes. SKIN: Though looks in good shape. Dressing is intact. This will be changed this morning. ASSESSMENT: 1. Generalized weakness with gait abnormality. a. Secondary to severe deconditioning, aggravated by recent hospitalization from a laceration of the left leg. b. Contributed too by severe chronic obstructive pulmonary disease and obstructive sleep apnea and obesity. c. Requires assistance with all his ADLs. d. Improved as of 01/30/2019. 2. Hospitalized at [facility] from 01/21/2019 to 01/24/2019 for cellulitis of the left lower leg and wound to the left leg. 3. Cellulitis of the left lower leg. a. Required hospitalization from 01/21/2019 to 01/24/2019. b. Resolved as of 01/25/2019. No signs of recurrence as of 01/30/2019. 4. Two lacerations to the left lower leg. a. Occurred from hitting on a running board of a truck while trying to get into the truck that occurred on 01/14/2019. b. Allowing to heal by secondary intention. c. Gradually improving as of 01/30/2019. 5. Chronic obstructive pulmonary disease. a. Complicated by chronic hypoxic and hypercapnic respiratory failure and contributed too by his severe obstructive sleep apnea. b. Stable as of 01/30/2019. 6. Severe obstructive sleep apnea. a. Required permanent tracheostomy, placed on 06/10/2011. b. Complicated by chronic hypoxic and hypercapnic respiratory failure. c. Stable and well controlled as of 01/30/2019. 7. Paroxysmal atrial fibrillation/atrial flutter. a. Controlled on Rythmol and on anticoagulant Eliquis. 8. Coronary artery disease. a. Status post bare metal stent in 2004 in the ramus. b. Presently asymptomatic. 9. Morbid obesity. 10. Severe venous insufficiency of the lower extremities. a. Complicated by chronic stasis dermatitis. b. Complicated by frequent episodes of cellulitis. Most recent episodes; one requiring hospitalization from 12/17/2018 to 12/20/2018 and again from 01/21/2019 until 01/25/2019. c. Resolved as of 01/28/2019. d. Well controlled with the increased bed breast and elevation of the legs as of 01/30/2019. 11. Hypertension. 12. Hypothyroidism. 13. Chronic kidney disease. 14. Anxiety disorder. PLAN: Continue present care. Continue present wound care. Job ID: [id number] [facility]
[2019-01-30] MEDS: Acetaminophen 325 MG TAB PO PRN (16:34)
[2019-01-30] MEDS: Lorazepam 1 MG TAB PO PRN ×2 (16:35→21:33)
[2019-01-30] MEDS: Atorvastatin Calcium 10 MG TAB PO SCH (21:20)
[2019-01-30] MEDS: Montelukast Sodium 10 mg Tablet PO SCH (21:21)
[2019-01-31] MEDS: Acetaminophen 325 MG TAB PO PRN (01:43)
[2019-01-31] MEDS: Levothyroxine Sodium 25 MCG TAB PO SCH (05:07)
[2019-01-31] MEDS: Propafenone HCl 150 MG TAB PO SCH ×3 (05:07→21:36)
[2019-01-31] MEDS: Polyethylene Glycol 3350 17 GM Packet PO SCH (09:11)
[2019-01-31] MEDS: Spironolactone 25 MG TAB PO SCH (09:12)
[2019-01-31] MEDS: Aspirin 81 mg Enteric Coated Tablet PO SCH (09:12)
[2019-01-31] MEDS: guaiFENesin ER 600 MG TAB PO SCH ×2 (09:12→21:35)
[2019-01-31] MEDS: Cephalexin 500 MG CAP PO SCH ×4 (09:12→21:35)
[2019-01-31] MEDS: Apixaban 5 MG TAB PO SCH ×2 (09:12→21:35)
[2019-01-31] MEDS: Furosemide 80 MG TAB PO SCH (09:12)
[2019-01-31] MEDS: Emollient 15 oz bottle 450 ML, Triamcinolone Acetonide 200 MG TOP PRN (09:13)
[2019-01-31] MEDS: Keri Lotion 15 oz BOT TOP SCH (09:13)
--- NOTE | 2019-01-31 10:46 | PRG ---
DATE OF SERVICE: 01/31/2019 SUBJECTIVE: The patient said he slept good last night. He slept in his bed. Said he is feeling better. He says his legs are feeling good. He is not having any trouble with his breathing. Yesterday, he walked up to 30 feet on three occasions. He requires moderate assistance with transfers. OBJECTIVE: VITAL SIGNS: The patient's temp is 96.7, pulse 63, respirations 22, O2 saturation 95% with his trach collar on at 5 L, and his blood pressure was 96/ 61. GENERAL: He is presently sitting up in a bedside chair. He is alert, talkative, appears in no distress. LUNGS: Clear. HEART: Regular rate. Trach site clean. EXTREMITIES: His legs look very good for him. He has just trace edema in the legs, the left a little bit more than the right, which is chronic. The wounds on the left leg were examined. Dressings removed. The Silvadene cream wiped off. The more proximal wound was the deeper one and it looks very, very good. There is a little yellowish slough just along the midportion of the wound, some of this was able to easily be wiped off with a gauze. The wound is though healing very well. It is smaller and there is no surrounding erythema. The more distal laceration was some more superficial and the one that created more tear in the skin. This looks excellent. The inferior aspect of the wound has developed excellent re-epithelialization that is occurring. The inferior edge of the wound is not totally closed, but will be soon within the next 2 to 3 days. There are islands of new epithelialization, healing very well with no surrounding redness. ASSESSMENT: 1. Generalized weakness with gait abnormality. a. Secondary to severe deconditioning, aggravated by recent hospitalization from a laceration of the left leg. b. Contributed too by severe chronic obstructive pulmonary disease and obstructive sleep apnea and obesity. c. Requires assistance with all his ADLs. d. Improved, walking up to 30 feet three times a day with his walker and standby assistance and requiring moderate assistance with transfers as of 2018. 2. Hospitalized at [facility] from 01/21/2019 to 01/24/2019 for cellulitis of the left lower leg and wound to the left leg. 3. Cellulitis of the left lower leg. a. Required hospitalization from 01/21/2019 to 01/24/2019. b. Resolved as of 01/25/2019. No signs of recurrence as of 01/31/2019. 4. Two lacerations to the left lower leg. a. Occurred from hitting on a running board of a truck while trying to get into the truck that occurred on 01/14/2019. b. Allowing to heal by secondary intention. c. Gradually healing as of 01/31/2019. 5. Chronic obstructive pulmonary disease. a. Complicated by chronic hypoxic and hypercapnic respiratory failure and contributed too by his severe obstructive sleep apnea. b. Stable as of 01/31/2019. 6. Severe obstructive sleep apnea. a. Required permanent tracheostomy, placed on 06/10/2011. b. Complicated by chronic hypoxic and hypercapnic respiratory failure. c. Stable and well controlled as of 01/31/2019. 7. Paroxysmal atrial fibrillation/atrial flutter. a. Controlled on Rythmol and on anticoagulant Eliquis. 8. Coronary artery disease. a. Status post bare metal stent in 2003 in the [facility]. b. Presently asymptomatic. 9. Morbid obesity. 10. Severe venous insufficiency of the lower extremities. a. Complicated by chronic stasis dermatitis. b. Complicated by frequent episodes of cellulitis. Most recent episodes; one requiring hospitalization from 12/17/2018 to 12/20/2018 and again from 01/21/2019 until 01/25/2019. c. Resolved as of 01/28/2019. d. Well controlled with the increased bed breast and elevation of the legs as of 01/31/2019. 11. Hypertension. 12. Hypothyroidism. 13. Chronic kidney disease. 14. Anxiety disorder. PLAN: Continue the cleaning of the legs with saline daily and then dressing with Silvadene cream overlay and Adaptic and then the Mepilex and then hold in place with elastic pullup. Continue PT. Job ID: [id number] MTDD
[2019-01-31] MEDS ORDERED: Sterile Water Irrigation 250 ML BOT ONE (12:26)
[2019-01-31] MEDS ORDERED: Sodium Chloride Irrig Solution 250 ML BOT ONE (12:26)
[2019-01-31] MEDS: Lorazepam 1 MG TAB PO PRN ×2 (17:24→21:37)
[2019-01-31] MEDS: Atorvastatin Calcium 10 MG TAB PO SCH (21:35)
[2019-01-31] MEDS: Montelukast Sodium 10 mg Tablet PO SCH (21:36)
[2019-02-01] MEDS: Acetaminophen 325 MG TAB PO PRN (01:11)
[2019-02-01] MEDS: Propafenone HCl 150 MG TAB PO SCH ×3 (05:00→21:17)
[2019-02-01] MEDS: Levothyroxine Sodium 25 MCG TAB PO SCH (05:00)
[2019-02-01] MEDS: Polyethylene Glycol 3350 17 GM Packet PO SCH (09:00)
[2019-02-01] MEDS: guaiFENesin ER 600 MG TAB PO SCH ×2 (09:01→20:30)
[2019-02-01] MEDS: Spironolactone 25 MG TAB PO SCH (09:01)
[2019-02-01] MEDS: Apixaban 5 MG TAB PO SCH ×2 (09:01→20:30)
[2019-02-01] MEDS: Cephalexin 500 MG CAP PO SCH ×2 (09:01→13:03)
[2019-02-01] MEDS: Aspirin 81 mg Enteric Coated Tablet PO SCH (09:02)
[2019-02-01] MEDS: Keri Lotion 15 oz BOT TOP SCH (09:02)
[2019-02-01] MEDS: Furosemide 80 MG TAB PO SCH (09:02)
[2019-02-01] MEDS: Montelukast Sodium 10 mg Tablet PO SCH (20:30)
[2019-02-01] MEDS: Atorvastatin Calcium 10 MG TAB PO SCH (20:30)
[2019-02-01] MEDS: Lorazepam 1 MG TAB PO PRN (21:18)
[2019-02-02] MEDS: Propafenone HCl 150 MG TAB PO SCH ×3 (05:30→21:56)
[2019-02-02] MEDS: Levothyroxine Sodium 25 MCG TAB PO SCH (05:30)
[2019-02-02] MEDS: Polyethylene Glycol 3350 17 GM Packet PO SCH (08:18)
[2019-02-02] MEDS: Keri Lotion 15 oz BOT TOP SCH (08:19)
[2019-02-02] MEDS: Aspirin 81 mg Enteric Coated Tablet PO SCH (08:19)
[2019-02-02] MEDS: Furosemide 80 MG TAB PO SCH (08:19)
[2019-02-02] MEDS: Apixaban 5 MG TAB PO SCH ×2 (08:19→20:46)
[2019-02-02] MEDS: guaiFENesin ER 600 MG TAB PO SCH ×2 (08:19→20:44)
[2019-02-02] MEDS: Spironolactone 25 MG TAB PO SCH (08:19)
[2019-02-02] MEDS: Sodium Chloride 0.65% Nasal 44 ML BOT EA NARE PRN (17:14)
[2019-02-02] MEDS: Atorvastatin Calcium 10 MG TAB PO SCH (20:45)
[2019-02-02] MEDS: Montelukast Sodium 10 mg Tablet PO SCH (20:46)
[2019-02-02] MEDS: Acetaminophen 325 MG TAB PO PRN (23:33)
[2019-02-03] MEDS: Propafenone HCl 150 MG TAB PO SCH ×3 (05:11→21:12)
[2019-02-03] MEDS: Levothyroxine Sodium 25 MCG TAB PO SCH (05:12)
--- NOTE | 2019-02-03 07:54 | PRG ---
DATE OF SERVICE: 02/01/2019 SUBJECTIVE: The patient says he is doing well. He slept well. His legs are not hurting him. His breathing is doing good. OBJECTIVE: GENERAL: The patient is sitting up in a bedside chair. He is alert, appears in no distress. VITAL SIGNS: Show a temperature of 98.2, his pulse is 58, respirations 20, O2 saturation 92% with his trach collar at 5 L, and blood pressure 100/58. LUNGS: Clear except for some early rales at the right base, that diminished with deep inspiration. HEART: Regular rate. EXTREMITIES: Trace edema. The wound on the left lower leg was dressed. The wounds both looked much improved. There is new epithelialization occurring along the edges of both wounds. Overall, they are making excellent progress. There is no surrounding drainage. There is still some little yellowish mucusy slough in the central portion of both wounds, but this is less today and this should clean up with dressing changes and healing. ASSESSMENT: 1. Generalized weakness with gait abnormality. a. Secondary to severe deconditioning, aggravated by recent hospitalization from a laceration of the left leg. b. Contributed too by severe chronic obstructive pulmonary disease and obstructive sleep apnea and obesity. c. Requires assistance with all his ADLs. d. Improved, walking up to 30 feet three times a day with his walker and standby assistance and requiring moderate assistance with transfers as of 2018. 2. Hospitalized at [facility] from 01/21/2019 to 01/24/2019 for cellulitis of the left lower leg and wound to the left leg. 3. Cellulitis of the left lower leg. a. Required hospitalization from 01/21/2019 to 01/24/2019. b. Resolved as of 01/25/2019. No signs of recurrence as of 02/01/2019. 4. Two lacerations to the left lower leg. a. Occurred from hitting on a running board of a truck while trying to get into the truck that occurred on 01/14/2019. b. Allowing to heal by secondary intention. c. Continued gradual healing of the two lacerations as of 02/01/2019. 5. Chronic obstructive pulmonary disease. a. Complicated by chronic hypoxic and hypercapnic respiratory failure and contributed too by his severe obstructive sleep apnea. b. Stable as of 02/01/2019. 6. Severe obstructive sleep apnea. a. Required permanent tracheostomy, placed on 06/10/2011. b. Complicated by chronic hypoxic and hypercapnic respiratory failure. c. Stable and well controlled as of 02/01/2019. 7. Paroxysmal atrial fibrillation/atrial flutter. a. Controlled on Rythmol and on anticoagulant Eliquis. 8. Coronary artery disease. a. Status post bare metal stent in 2004 in the [facility]. b. Presently asymptomatic. 9. Morbid obesity. 10. Severe venous insufficiency of the lower extremities. a. Complicated by chronic stasis dermatitis. b. Complicated by frequent episodes of cellulitis. Most recent episodes; one requiring hospitalization from 12/17/2018 to 12/20/2018 and again from 01/21/2019 until 01/25/2019. c. Resolved as of 01/28/2019. d. Well controlled with the increased bed breast and elevation of the legs as of 02/01/2019. 11. Hypertension. 12. Hypothyroidism. 13. Chronic kidney disease. 14. Anxiety disorder. PLAN: We will continue wound care. Continue PT/OT. Continue tracheostomy care. Job ID: [id number] JF
[2019-02-03] MEDS: Polyethylene Glycol 3350 17 GM Packet PO SCH (08:18)
[2019-02-03] MEDS: Spironolactone 25 MG TAB PO SCH (08:18)
[2019-02-03] MEDS: Apixaban 5 MG TAB PO SCH ×2 (08:18→20:10)
[2019-02-03] MEDS: Keri Lotion 15 oz BOT TOP SCH (08:19)
[2019-02-03] MEDS: Aspirin 81 mg Enteric Coated Tablet PO SCH (08:19)
[2019-02-03] MEDS: Furosemide 80 MG TAB PO SCH (08:19)
[2019-02-03] MEDS: guaiFENesin ER 600 MG TAB PO SCH ×2 (08:19→20:10)
--- NOTE | 2019-02-03 11:54 | PRG ---
DATE OF SERVICE: 02/03/2019 SUBJECTIVE: The patient thinks he is doing good. He had no complaint. Wound on his left lower leg will be dressed this morning. OBJECTIVE: GENERAL: The patient is alert, still lying in bed. He has not yet gotten up for the morning. VITAL SIGNS: His temperature is 97.1, pulse 56, respirations 22, O2 saturation 95% with his trach collar, and blood pressure 112/59. His weight is 269. His admission weight was 277. LUNGS: Clear. HEART: Regular rate. Trach site looks clean. EXTREMITIES: Lower extremities: There is no edema. Dressing is in good position on the left lower anterior leg and dry. This will be dressed this morning, and we will get a look at the wound then. ASSESSMENT: 1. Generalized weakness with gait abnormality. a. Secondary to severe deconditioning, aggravated by recent hospitalization from a laceration of the left leg. b. Contributed too by severe chronic obstructive pulmonary disease and obstructive sleep apnea and obesity. c. Requires assistance with all his ADLs. d. Improved, walking up to 30 feet three times a day with his walker and standby assistance and requiring moderate assistance with transfers as of 2018. 2. Hospitalized at [facility] from 01/21/2019 to 01/24/2019 for cellulitis of the left lower leg and wound to the left leg. 3. Cellulitis of the left lower leg. a. Required hospitalization from 01/21/2019 to 01/24/2019. b. Resolved as of 01/25/2019. No signs of recurrence as of 02/03/2019. 4. Two lacerations to the left lower leg. a. Occurred from hitting on a running board of a truck while trying to get into the truck that occurred on 01/14/2019. b. Allowing to heal by secondary intention. c. Continued gradual healing of the two lacerations as of 02/03/2019. 5. Chronic obstructive pulmonary disease. a. Complicated by chronic hypoxic and hypercapnic respiratory failure and contributed too by his severe obstructive sleep apnea. b. Stable as of 02/03/2019. 6. Severe obstructive sleep apnea. a. Required permanent tracheostomy, placed on 06/10/2011. b. Complicated by chronic hypoxic and hypercapnic respiratory failure. c. Stable and well controlled as of 02/03/2019. 7. Paroxysmal atrial fibrillation/atrial flutter. a. Controlled on Rythmol and on anticoagulant Eliquis. 8. Coronary artery disease. a. Status post bare metal [facility]. b. Presently asymptomatic. 9. Morbid obesity. 10. Severe venous insufficiency of the lower extremities. a. Complicated by chronic stasis dermatitis. b. Complicated by frequent episodes of cellulitis. Most recent episodes; one requiring hospitalization from 12/17/2018 to 12/20/2018 and again from 01/21/2019 until 01/25/2019. c. Well controlled as of 02/03/2019. 11. Hypertension. 12. Hypothyroidism. 13. Chronic kidney disease. 14. Anxiety disorder. PLAN: Continue PT/OT. Continue wound care. Continue trach care. Job ID: [id number] MTDJv
[2019-02-03] MEDS: Atorvastatin Calcium 10 MG TAB PO SCH (20:10)
[2019-02-03] MEDS: Montelukast Sodium 10 mg Tablet PO SCH (20:10)
[2019-02-03] MEDS: Acetaminophen 325 MG TAB PO PRN (20:51)
[2019-02-03] MEDS: Lorazepam 1 MG TAB PO PRN (20:51)
[2019-02-04] MEDS: Propafenone HCl 150 MG TAB PO SCH ×3 (05:10→21:53)
[2019-02-04] MEDS: Levothyroxine Sodium 25 MCG TAB PO SCH (05:11)
[2019-02-04] MEDS: Polyethylene Glycol 3350 17 GM Packet PO SCH ×2 (08:13→08:20)
[2019-02-04] MEDS: Emollient 15 oz bottle 450 ML, Triamcinolone Acetonide 200 MG TOP PRN (08:14)
[2019-02-04] MEDS: Furosemide 80 MG TAB PO SCH (08:14)
[2019-02-04] MEDS: Spironolactone 25 MG TAB PO SCH (08:14)
[2019-02-04] MEDS: Aspirin 81 mg Enteric Coated Tablet PO SCH (08:14)
[2019-02-04] MEDS: Apixaban 5 MG TAB PO SCH ×2 (08:14→20:34)
[2019-02-04] MEDS: guaiFENesin ER 600 MG TAB PO SCH ×2 (08:14→20:34)
[2019-02-04] MEDS: Keri Lotion 15 oz BOT TOP SCH (08:15)
--- NOTE | 2019-02-04 10:10 | PRG ---
DATE OF SERVICE: 02/04/2019 SUBJECTIVE: The patient said he is doing good this morning. He had a good night. Yesterday, he worked with physical therapy and he was able to walk with his walker and standby assistance up to 70 feet. Later in the day, he said he was settled down, he was going to sit on the side of the bed, and his legs just kind of gave out, and he just sat in the floor, but with no injuries. His transfers are better. He is still requiring some minimal assistance. OBJECTIVE: GENERAL: The patient is lying in bed, alert, appears very comfortable this morning, appears in no distress. VITAL SIGNS: His temperature is 98.9, his pulse 66, respirations 20, O2 saturation 96% with his trach collar, blood pressure 137/75. LUNGS: Clear. Trach site clean. HEART: Regular rate. EXTREMITIES: Trace edema. Legs overall look good. He has chronic discoloration of the legs with a little kind of bluish hue from the stasis. The wound dressing is in place with no drainage. This will be changed later this morning. ASSESSMENT: 1. Generalized weakness with gait abnormality. a. Secondary to severe deconditioning, aggravated by recent hospitalization from a laceration of the left leg. b. Contributed too by severe chronic obstructive pulmonary disease and obstructive sleep apnea and obesity. c. Requires assistance with all his ADLs. d. Improved, walking up to 70 feet with his rolling walker. Transferring with minimal assistance as of 02/04/2019. 2. Hospitalized at [facility] from 01/21/2019 to 01/24/2019 for cellulitis of the left lower leg and wound to the left leg. 3. Cellulitis of the left lower leg. a. Required hospitalization from 01/21/2019 to 01/24/2019. b. Resolved as of 01/25/2019. No signs of recurrence as of 02/04/2019. 4. Two lacerations to the left lower leg. a. Occurred from hitting on a running board of a truck while trying to get into the truck that occurred on 01/14/2019. b. Allowing to heal by secondary intention. c. Continued gradual healing of the two lacerations as of 02/04/2019. 5. Chronic obstructive pulmonary disease. a. Complicated by chronic hypoxic and hypercapnic respiratory failure and contributed too by his severe obstructive sleep apnea. b. Stable as of 02/04/2019. 6. Severe obstructive sleep apnea. a. Required permanent tracheostomy, placed on 06/10/2011. b. Complicated by chronic hypoxic and hypercapnic respiratory failure. c. Stable and well controlled as of 02/04/2019. 7. Paroxysmal atrial fibrillation/atrial flutter. a. Controlled on Rythmol and on anticoagulant Eliquis. 8. Coronary artery disease. a. Status post bare metal stent in 2003 in the [facility]. b. Presently asymptomatic. 9. Morbid obesity. 10. Severe venous insufficiency of the lower extremities. a. Complicated by chronic stasis dermatitis. b. Complicated by frequent episodes of cellulitis. Most recent episodes; one requiring hospitalization from 12/17/2018 to 12/20/2018 and again from 01/21/2019 until 01/25/2019. c. Well controlled as of 02/04/2019. 11. Hypertension. 12. Hypothyroidism. 13. Chronic kidney disease. 14. Anxiety disorder. PLAN: Continue present wound care. Continue PT and OT. Job ID: [id number] [facility]
[2019-02-04] MEDS: Montelukast Sodium 10 mg Tablet PO SCH (20:34)
[2019-02-04] MEDS: Atorvastatin Calcium 10 MG TAB PO SCH (20:34)
[2019-02-04] MEDS: Acetaminophen 325 MG TAB PO PRN (21:54)
[2019-02-05] MEDS: Propafenone HCl 150 MG TAB PO SCH ×3 (05:16→21:12)
[2019-02-05] MEDS: Levothyroxine Sodium 25 MCG TAB PO SCH (05:16)
[2019-02-05] MEDS: Keri Lotion 15 oz BOT TOP SCH (07:56)
[2019-02-05] MEDS: guaiFENesin ER 600 MG TAB PO SCH ×2 (07:57→21:11)
[2019-02-05] MEDS: Spironolactone 25 MG TAB PO SCH (07:57)
[2019-02-05] MEDS: Polyethylene Glycol 3350 17 GM Packet PO SCH (07:57)
[2019-02-05] MEDS: Aspirin 81 mg Enteric Coated Tablet PO SCH (07:58)
[2019-02-05] MEDS: Furosemide 80 MG TAB PO SCH (07:58)
[2019-02-05] MEDS: Apixaban 5 MG TAB PO SCH ×2 (07:58→21:11)
--- NOTE | 2019-02-05 08:36 | PRG ---
DATE OF SERVICE: 02/05/2019 SUBJECTIVE: The patient has had a good night. He has no complaint this morning. He continues to do well with physical therapy. Yesterday, he walked 50 to 60 feet twice. He required minimum to moderate assistance with transfers. OBJECTIVE: GENERAL: The patient is sitting on the edge of the bed with his feet on the floor. He is alert, talkative, appears comfortable, and in no distress. VITAL SIGNS: Temperature 97.6, pulse 65, respirations 20, O2 saturation 94% with a trach collar at 4 L, blood pressure 121/58. His weight is 270. LUNGS: Clear. HEART: Regular rate. Trach site clean. EXTREMITIES: Lower extremities, chronic stasis changes with the blue discoloration of the lower legs from the dependency and venous insufficiency, that is chronic. There is no increased heat. The wounds on the left lower leg are improving with excellent increase in re-epithelialization down the center of both wounds. There is still a little yellowish mucousy slough, but this is decreasing. There is no surrounding erythema. ASSESSMENT: 1. Generalized weakness with gait abnormality. a. Secondary to severe deconditioning, aggravated by recent hospitalization from a laceration of the left leg. b. Contributed too by severe chronic obstructive pulmonary disease and obstructive sleep apnea and obesity. c. Requires assistance with all his ADLs. d. Stable. Walking 50 to 60 feet with a rolling walker, transferring with minimum to moderate assistance as of 02/04/2019. 2. Hospitalized at [facility] from 01/21/2019 to 01/24/2019 for cellulitis of the left lower leg and wound to the left leg. 3. Cellulitis of the left lower leg. a. Required hospitalization from 01/21/2019 to 01/24/2019. b. Resolved as of 01/25/2019. No signs of recurrence as of 02/05/2019. 4. Two lacerations to the left lower leg. a. Occurred from hitting on a running board of a truck while trying to get into the truck that occurred on 01/14/2019. b. Allowing to heal by secondary intention. c. Continued gradual healing of the two lacerations as of 02/05/2019. 5. Chronic obstructive pulmonary disease. a. Complicated by chronic hypoxic and hypercapnic respiratory failure and contributed too by his severe obstructive sleep apnea. b. Stable as of 02/05/2019. 6. Severe obstructive sleep apnea. a. Required permanent tracheostomy, placed on 06/10/2011. b. Complicated by chronic hypoxic and hypercapnic respiratory failure. c. Stable and well controlled as of 02/05/2019. 7. Paroxysmal atrial fibrillation/atrial flutter. a. Controlled on Rythmol and on anticoagulant Eliquis. 8. Coronary artery disease. a. Status post bare metal stent in 2003 in the [facility]. b. Presently asymptomatic. 9. Morbid obesity. 10. Severe venous insufficiency of the lower extremities. a. Complicated by chronic stasis dermatitis. b. Complicated by frequent episodes of cellulitis. Most recent episodes; one requiring hospitalization from 12/17/2018 to 12/20/2018 and again from 01/21/2019 until 01/25/2019. c. Well controlled as of 02/05/2019. 11. Hypertension. 12. Hypothyroidism. 13. Chronic kidney disease. 14. Anxiety disorder. PLAN: Continue present wound care. Continue PT and OT. Job ID: [id number] [facility]
[2019-02-05] MEDS: Sodium Chloride 0.65% Nasal 44 ML BOT EA NARE PRN ×2 (11:03→17:00)
[2019-02-05] MEDS: Atorvastatin Calcium 10 MG TAB PO SCH (21:11)
[2019-02-05] MEDS: Montelukast Sodium 10 mg Tablet PO SCH (21:12)
[2019-02-05] MEDS: Acetaminophen 325 MG TAB PO PRN (21:14)
[2019-02-05] MEDS: Lorazepam 1 MG TAB PO PRN (23:18)
[2019-02-06] MEDS: Propafenone HCl 150 MG TAB PO SCH ×3 (05:36→21:17)
[2019-02-06] MEDS: Levothyroxine Sodium 25 MCG TAB PO SCH (05:36)
[2019-02-06] MEDS: Furosemide 80 MG TAB PO SCH (08:43)
[2019-02-06] MEDS: Aspirin 81 mg Enteric Coated Tablet PO SCH (08:43)
[2019-02-06] MEDS: guaiFENesin ER 600 MG TAB PO SCH ×2 (08:43→20:28)
[2019-02-06] MEDS: Spironolactone 25 MG TAB PO SCH (08:43)
[2019-02-06] MEDS: Polyethylene Glycol 3350 17 GM Packet PO SCH (08:44)
[2019-02-06] MEDS: Apixaban 5 MG TAB PO SCH ×2 (08:44→20:29)
[2019-02-06] MEDS: Keri Lotion 15 oz BOT TOP SCH (08:46)
--- NOTE | 2019-02-06 09:38 | PRG ---
DATE OF SERVICE: 02/06/2019 SUBJECTIVE: The patient says he is doing good. He said his legs feel a little tingly this morning, but they are not swelled. The color looks the same. His breathing is doing good. OBJECTIVE: GENERAL: The patient is alert, appears in no acute distress. VITAL SIGNS: His temp is 97.2, pulse 59, respirations 20, O2 saturation 90% on room air, and blood pressure 127/67. LUNGS: Clear. HEART: Regular rate. EXTREMITIES: Trace edema. There is a chronic discoloration of the skin from the venous insufficiency. The dressing on the left leg is dry. This will be changed later this morning. ASSESSMENT: 1. Generalized weakness with gait abnormality. a. Secondary to severe deconditioning, aggravated by recent hospitalization from a laceration of the left leg. b. Contributed too by severe chronic obstructive pulmonary disease and obstructive sleep apnea and obesity. c. Requires assistance with all his ADLs. d. Stable. Walking 50 to 60 feet with a rolling walker, transferring with minimum to moderate assistance as of 02/06/2019. 2. Hospitalized at [facility] from 01/21/2019 to 01/24/2019 for cellulitis of the left lower leg and wound to the left leg. 3. Cellulitis of the left lower leg. a. Required hospitalization from 01/21/2019 to 01/24/2019. b. Resolved as of 01/25/2019. No signs of recurrence as of 02/06/2019. 4. Two lacerations to the left lower leg. a. Occurred from hitting on a running board of a truck while trying to get into the truck that occurred on 01/14/2019. b. Allowing to heal by secondary intention. c. Continued gradual healing of the two lacerations as of 02/06/2019. 5. Chronic obstructive pulmonary disease. a. Complicated by chronic hypoxic and hypercapnic respiratory failure and contributed too by his severe obstructive sleep apnea. b. Stable as of 02/06/2019. 6. Severe obstructive sleep apnea. a. Required permanent tracheostomy, placed on 06/10/2011. b. Complicated by chronic hypoxic and hypercapnic respiratory failure. c. Stable and well controlled as of 02/06/2019. 7. Paroxysmal atrial fibrillation/atrial flutter. a. Controlled on Rythmol and on anticoagulant Eliquis. 8. Coronary artery disease. a. Status post bare metal stent in 2004 in the [facility]. b. Presently asymptomatic. 9. Morbid obesity. 10. Severe venous insufficiency of the lower extremities. a. Complicated by chronic stasis dermatitis. b. Complicated by frequent episodes of cellulitis. Most recent episodes; one requiring hospitalization from 12/17/2018 to 12/20/2018 and again from 01/21/2019 until 01/25/2019. c. Well controlled as of 02/06/2019. 11. Hypertension. 12. Hypothyroidism. 13. Chronic kidney disease. 14. Anxiety disorder. PLAN: Continue present wound care. Continue PT and OT. Job ID: [id number] MTDD
[2019-02-06] MEDS: Atorvastatin Calcium 10 MG TAB PO SCH (20:29)
[2019-02-06] MEDS: Montelukast Sodium 10 mg Tablet PO SCH (20:30)
[2019-02-06] MEDS: Acetaminophen 325 MG TAB PO PRN (23:24)
[2019-02-07] MEDS: Propafenone HCl 150 MG TAB PO SCH ×3 (05:15→22:19)
[2019-02-07] MEDS: Levothyroxine Sodium 25 MCG TAB PO SCH (05:15)
[2019-02-07] MEDS: Sodium Chloride 0.65% Nasal 44 ML BOT EA NARE PRN (05:18)
[2019-02-07] MEDS: Polyethylene Glycol 3350 17 GM Packet PO SCH (08:49)
[2019-02-07] MEDS: Spironolactone 25 MG TAB PO SCH (08:51)
[2019-02-07] MEDS: Aspirin 81 mg Enteric Coated Tablet PO SCH (08:51)
[2019-02-07] MEDS: Furosemide 80 MG TAB PO SCH (08:51)
[2019-02-07] MEDS: guaiFENesin ER 600 MG TAB PO SCH ×2 (08:51→20:18)
[2019-02-07] MEDS: Apixaban 5 MG TAB PO SCH ×2 (08:51→20:18)
[2019-02-07] MEDS: Emollient 15 oz bottle 450 ML, Triamcinolone Acetonide 200 MG TOP PRN (08:52)
[2019-02-07] MEDS: Keri Lotion 15 oz BOT TOP SCH (08:58)
--- NOTE | 2019-02-07 11:41 | PRG ---
DATE OF SERVICE: 02/07/2019 SUBJECTIVE: The patient said he had a little more restless night than usual. This morning, though he is feeling good, he is having no trouble with his breathing. His legs are not hurting. Said he walked a little bit further yesterday. OBJECTIVE: GENERAL: The patient is sitting up on the side of the bed with feet on the floor. He is alert and talkative. Appears comfortable and in no distress. VITAL SIGNS: His temperature is 96.5, pulse 59, respirations 20, O2 saturation 97% on room air, blood pressure 110/59. LUNGS: Clear. Trach site clean. HEART: Regular rate. EXTREMITIES: Lower extremities, trace edema. There are chronic stasis changes with a blue discoloration of the leg. The dressing on the left lower leg is dry. This will be changed this morning. Yesterday, I looked at the wound and the wound continues to improve and each day, the wound is a little smaller. Still a little small area of yellow slough down the center of the wound, but this is less. ASSESSMENT: 1. Generalized weakness with gait abnormality. a. Secondary to severe deconditioning, aggravated by recent hospitalization from a laceration of the left leg. b. Contributed too by severe chronic obstructive pulmonary disease and obstructive sleep apnea and obesity. c. Requires assistance with all his ADLs. d. Stable. Yesterday, walked 45 feet on three occasions with his rolling walker. Transferring better with some minimal assistance as of 02/07/2019. 2. Hospitalized at [facility] from 01/21/2019 to 01/24/2019 for cellulitis of the left lower leg and wound to the left leg. 3. Cellulitis of the left lower leg. a. Required hospitalization from 01/21/2019 to 01/24/2019. b. Resolved as of 01/25/2019. No signs of recurrence as of 02/07/2019. 4. Two lacerations to the left lower leg. a. Occurred from hitting on a running board of a truck while trying to get into the truck that occurred on 01/14/2019. b. Allowing to heal by secondary intention. c. Continued gradual healing of the two lacerations as of 02/07/2019. 5. Chronic obstructive pulmonary disease. a. Complicated by chronic hypoxic and hypercapnic respiratory failure and contributed too by his severe obstructive sleep apnea. b. Stable as of 02/07/2019. 6. Severe obstructive sleep apnea. a. Required permanent tracheostomy, placed on 06/10/2011. b. Complicated by chronic hypoxic and hypercapnic respiratory failure. c. Stable and well controlled as of 02/07/2019. 7. Paroxysmal atrial fibrillation/atrial flutter. a. Controlled on Rythmol and on anticoagulant Eliquis. 8. Coronary artery disease. a. Status post bare metal stent in 2003 in the [facility]. b. Presently asymptomatic. 9. Morbid obesity. 10. Severe venous insufficiency of the lower extremities. a. Complicated by chronic stasis dermatitis. b. Complicated by frequent episodes of cellulitis. Most recent episodes; one requiring hospitalization from 12/17/2018 to 12/20/2018 and again from 01/21/2019 until 01/25/2019. c. Well controlled as of 02/07/2019. 11. Hypertension. 12. Hypothyroidism. 13. Chronic kidney disease. 14. Anxiety disorder. PLAN: Continue present wound care. Continue PT and OT. Job ID: [id number] MTDD
[2019-02-07] MEDS: Atorvastatin Calcium 10 MG TAB PO SCH (20:18)
[2019-02-07] MEDS: Montelukast Sodium 10 mg Tablet PO SCH (20:18)
[2019-02-07] MEDS: Acetaminophen 325 MG TAB PO PRN (20:19)
[2019-02-08] MEDS: Propafenone HCl 150 MG TAB PO SCH ×3 (05:27→21:07)
[2019-02-08] MEDS: Levothyroxine Sodium 25 MCG TAB PO SCH (05:28)
[2019-02-08] MEDS: Polyethylene Glycol 3350 17 GM Packet PO SCH (09:00)
[2019-02-08] MEDS: Aspirin 81 mg Enteric Coated Tablet PO SCH (09:02)
[2019-02-08] MEDS: Spironolactone 25 MG TAB PO SCH (09:02)
[2019-02-08] MEDS: Apixaban 5 MG TAB PO SCH ×2 (09:02→21:05)
[2019-02-08] MEDS: guaiFENesin ER 600 MG TAB PO SCH ×2 (09:02→21:05)
[2019-02-08] MEDS: Furosemide 80 MG TAB PO SCH (09:02)
[2019-02-08] MEDS: Emollient 15 oz bottle 450 ML, Triamcinolone Acetonide 200 MG TOP PRN (09:03)
[2019-02-08] MEDS: Keri Lotion 15 oz BOT TOP SCH (09:04)
[2019-02-08] MEDS: Atorvastatin Calcium 10 MG TAB PO SCH (21:05)
[2019-02-08] MEDS: Montelukast Sodium 10 mg Tablet PO SCH (21:07)
[2019-02-09] MEDS: Lorazepam 1 MG TAB PO PRN (01:16)
[2019-02-09] MEDS: Propafenone HCl 150 MG TAB PO SCH ×3 (05:03→21:15)
[2019-02-09] MEDS: Levothyroxine Sodium 25 MCG TAB PO SCH (05:03)
[2019-02-09] MEDS: Polyethylene Glycol 3350 17 GM Packet PO SCH (09:14)
[2019-02-09] MEDS: guaiFENesin ER 600 MG TAB PO SCH ×2 (09:15→20:25)
[2019-02-09] MEDS: Furosemide 80 MG TAB PO SCH (09:15)
[2019-02-09] MEDS: Apixaban 5 MG TAB PO SCH ×2 (09:15→20:26)
[2019-02-09] MEDS: Aspirin 81 mg Enteric Coated Tablet PO SCH (09:15)
[2019-02-09] MEDS: Spironolactone 25 MG TAB PO SCH (09:16)
[2019-02-09] MEDS: Keri Lotion 15 oz BOT TOP SCH (09:16)
[2019-02-09] MEDS: Emollient 15 oz bottle 450 ML, Triamcinolone Acetonide 200 MG TOP PRN (09:16)
[2019-02-09] MEDS: Atorvastatin Calcium 10 MG TAB PO SCH (20:25)
[2019-02-09] MEDS: Montelukast Sodium 10 mg Tablet PO SCH (20:26)
[2019-02-10] MEDS: Propafenone HCl 150 MG TAB PO SCH ×3 (06:01→22:06)
[2019-02-10] MEDS: Levothyroxine Sodium 25 MCG TAB PO SCH (06:01)
[2019-02-10] MEDS: Polyethylene Glycol 3350 17 GM Packet PO SCH (08:52)
[2019-02-10] MEDS: Aspirin 81 mg Enteric Coated Tablet PO SCH (08:54)
[2019-02-10] MEDS: Furosemide 80 MG TAB PO SCH (08:54)
[2019-02-10] MEDS: Apixaban 5 MG TAB PO SCH ×2 (08:54→20:37)
[2019-02-10] MEDS: Spironolactone 25 MG TAB PO SCH (08:54)
[2019-02-10] MEDS: guaiFENesin ER 600 MG TAB PO SCH ×2 (08:55→20:37)
[2019-02-10] MEDS: Emollient 15 oz bottle 450 ML, Triamcinolone Acetonide 200 MG TOP PRN (08:56)
[2019-02-10] MEDS: Keri Lotion 15 oz BOT TOP SCH (08:57)
--- NOTE | 2019-02-10 12:22 | PRG ---
DATE OF SERVICE: 02/10/2019 SUBJECTIVE: The patient said he slept in bed, had a good night. His breathing is good this morning. His legs are feeling better. He is anxious to get restarted with therapy today. OBJECTIVE: GENERAL: The patient is sitting up in a chair with his feet elevated in a second chair. VITAL SIGNS: His temperature is 97.4, pulse 73, respirations 20, O2 saturation 99% with a trach collar, blood pressure 98/56. Weight up 2 pounds to 270. Admission weight was 277. LUNGS: Clear. HEART: Regular rate. Trach site clean. EXTREMITIES: Lower extremities have a reddish blue hue secondary to the chronic stasis. There is trace edema. The lacerations on the left lower leg continue to heal. The wound width is smaller, the length of each is smaller. There is excellent granulation tissue. There is a small amount of yellowish slough down the center of each laceration, but this is less. There is plenty abutting in these regions of new granulation tissue. ASSESSMENT: 1. Generalized weakness with gait abnormality. a. Secondary to severe deconditioning, aggravated by recent hospitalization from a laceration of the left leg. b. Contributed too by severe chronic obstructive pulmonary disease and obstructive sleep apnea and obesity. c. Requires assistance with all his ADLs. d. Slow improvement, walking a little further each day, transferring with just minimal assistance as of 02/10/2019. 2. Hospitalized at [facility] from 01/21/2019 to 01/24/2019 for cellulitis of the left lower leg and wound to the left leg. 3. Cellulitis of the left lower leg. a. Required hospitalization from 01/21/2019 to 01/24/2019. b. Resolved as of 01/25/2019. No signs of recurrence as of 02/10/2019. 4. Two lacerations to the left lower leg. a. Occurred from hitting on a running board of a truck while trying to get into the truck that occurred on 01/14/2019. b. Allowing to heal by secondary intention. c. Continued gradual healing of the two lacerations as of 02/10/2019. 5. Chronic obstructive pulmonary disease. a. Complicated by chronic hypoxic and hypercapnic respiratory failure and contributed too by his severe obstructive sleep apnea. b. Stable as of 02/10/2019. 6. Severe obstructive sleep apnea. a. Required permanent tracheostomy, placed on 06/10/2011. b. Complicated by chronic hypoxic and hypercapnic respiratory failure. c. Stable and well controlled as of 02/10/2019. 7. Paroxysmal atrial fibrillation/atrial flutter. a. Controlled on Rythmol and on anticoagulant Eliquis. 8. Coronary artery disease. a. Status post bare metal stent in 2003 in the [facility]. b. Presently asymptomatic. 9. Morbid obesity. 10. Severe venous insufficiency of the lower extremities. a. Complicated by chronic stasis dermatitis. b. Complicated by frequent episodes of cellulitis. Most recent episodes; one requiring hospitalization from 12/17/2018 to 12/20/2018 and again from 01/21/2019 until 01/25/2019. c. Well controlled as of 02/10/2019. 11. Hypertension. 12. Hypothyroidism. 13. Chronic kidney disease. 14. Anxiety disorder. PLAN: Continue present wound care. Continue PT. Job ID: [id number] [id number]
--- NOTE | 2019-02-10 12:22 | PRG ---
DATE OF SERVICE: 02/08/2019 SUBJECTIVE: The patient said he is doing good today. He is having no trouble with his breathing. He continues to work with physical therapy, and yesterday, he walked 90 feet on three different occasions with a rolling walker and just supervision. He is requiring just minimal assistance with any transfers. Nurse changed his dressing on the left lower leg this morning and said the leg continues to do good and continues to get a little smaller. OBJECTIVE: GENERAL: The patient is sitting up in a chair with his feet elevated. He is alert, appears very comfortable, and in no distress. VITAL SIGNS: His temperature is 97.1, pulse 62, respirations 20, O2 saturations 96% with a trach collar, blood pressure 112/57. His weight is 268. LUNGS: Clear. HEART: Regular rate. Trach site clean. EXTREMITIES: Lower extremities, there is just trace edema. The dressing is in place with no drainage. The lower legs have skin changes from chronic stasis with a bluish hue to the legs. ASSESSMENT: 1. Generalized weakness with gait abnormality. a. Secondary to severe deconditioning, aggravated by recent hospitalization from a laceration of the left leg. b. Contributed too by severe chronic obstructive pulmonary disease and obstructive sleep apnea and obesity. c. Requires assistance with all his ADLs. d. Improved. Walked 90 feet on three occasions yesterday and requiring just minimum assistance with transfers as of 02/08/2019. 2. Hospitalized at [facility] from 01/21/2019 to 01/24/2019 for cellulitis of the left lower leg and wound to the left leg. 3. Cellulitis of the left lower leg. a. Required hospitalization from 01/21/2019 to 01/24/2019. b. Resolved as of 01/25/2019. No signs of recurrence as of 02/08/2019. 4. Two lacerations to the left lower leg. a. Occurred from hitting on a running board of a truck while trying to get into the truck that occurred on 01/14/2019. b. Allowing to heal by secondary intention. c. Continued gradual healing of the two lacerations as of 02/08/2019. 5. Chronic obstructive pulmonary disease. a. Complicated by chronic hypoxic and hypercapnic respiratory failure and contributed too by his severe obstructive sleep apnea. b. Stable as of 02/08/2019. 6. Severe obstructive sleep apnea. a. Required permanent tracheostomy, placed on 06/10/2011. b. Complicated by chronic hypoxic and hypercapnic respiratory failure. c. Stable and well controlled as of 02/08/2019. 7. Paroxysmal atrial fibrillation/atrial flutter. a. Controlled on Rythmol and on anticoagulant Eliquis. 8. Coronary artery disease. a. Status post bare metal stent in 2003 in the [facility]. b. Presently asymptomatic. 9. Morbid obesity. 10. Severe venous insufficiency of the lower extremities. a. Complicated by chronic stasis dermatitis. b. Complicated by frequent episodes of cellulitis. Most recent episodes; one requiring hospitalization from 12/17/2018 to 12/20/2018 and again from 01/21/2019 until 01/25/2019. c. Well controlled as of 02/07/2019. 11. Hypertension. 12. Hypothyroidism. 13. Chronic kidney disease. 14. Anxiety disorder. PLAN: Continue present wound care. Continue PT, OT. Job ID: [id number] [id number]
[2019-02-10] MEDS: Montelukast Sodium 10 mg Tablet PO SCH (20:37)
[2019-02-10] MEDS: Atorvastatin Calcium 10 MG TAB PO SCH (20:37)
[2019-02-11] MEDS: Propafenone HCl 150 MG TAB PO SCH ×3 (05:32→21:20)
[2019-02-11] MEDS: Levothyroxine Sodium 25 MCG TAB PO SCH (05:33)
[2019-02-11] MEDS: Spironolactone 25 MG TAB PO SCH (08:35)
[2019-02-11] MEDS: Polyethylene Glycol 3350 17 GM Packet PO SCH (08:35)
[2019-02-11] MEDS: guaiFENesin ER 600 MG TAB PO SCH ×2 (08:35→21:22)
[2019-02-11] MEDS: Apixaban 5 MG TAB PO SCH ×2 (08:35→21:21)
[2019-02-11] MEDS: Aspirin 81 mg Enteric Coated Tablet PO SCH (08:35)
[2019-02-11] MEDS: Furosemide 80 MG TAB PO SCH (08:35)
[2019-02-11] MEDS: Keri Lotion 15 oz BOT TOP SCH (08:36)
[2019-02-11] MEDS: Montelukast Sodium 10 mg Tablet PO SCH (21:20)
[2019-02-11] MEDS: Atorvastatin Calcium 10 MG TAB PO SCH (21:22)
[2019-02-12] MEDS: Propafenone HCl 150 MG TAB PO SCH ×3 (06:05→21:14)
[2019-02-12] MEDS: Levothyroxine Sodium 25 MCG TAB PO SCH (06:07)
[2019-02-12] MEDS: guaiFENesin ER 600 MG TAB PO SCH ×2 (07:53→20:22)
[2019-02-12] MEDS: Apixaban 5 MG TAB PO SCH ×2 (07:53→20:23)
[2019-02-12] MEDS: Aspirin 81 mg Enteric Coated Tablet PO SCH (07:53)
[2019-02-12] MEDS: Spironolactone 25 MG TAB PO SCH (07:53)
[2019-02-12] MEDS: Furosemide 80 MG TAB PO SCH (07:53)
[2019-02-12] MEDS: Keri Lotion 15 oz BOT TOP SCH (07:54)
[2019-02-12] MEDS: Polyethylene Glycol 3350 17 GM Packet PO SCH (07:54)
--- NOTE | 2019-02-12 09:33 | PRG ---
DATE OF SERVICE: 02/12/2019 SUBJECTIVE: The patient said he is doing good. He says his leg feels good. He is not having any trouble with his breathing. He is sleeping in bed at nighttime. He has a new large chair to sit and that reclines and allows him to raise his feet that has been comfortable for him. Yesterday, he walked up to 90 feet once, a 45 feet twice with rolling walker and supervision. OBJECTIVE: GENERAL: The patient is sitting up in his chair with the feet propped up. He looks very comfortable and in no distress. VITAL SIGNS: His temp is 97, pulse 63, respirations 20, O2 saturation 96% on room air, blood pressure 112/56. LUNGS: Clear. HEART: Regular rate. NECK: Trach site clean. EXTREMITIES: Left lower leg lacerations continue to heal. The wounds were shorter and the width of the wound is smaller down the center of the wound. There is still just a little bit of yellowish slough, but this is less and there is granulation tissue that is peeking through these areas. The wound is much improved. No surrounding redness. The legs have chronic bluish discoloration from the stasis and only trace edema. ASSESSMENT: 1. Generalized weakness with gait abnormality. a. Secondary to severe deconditioning, aggravated by recent hospitalization from a laceration of the left leg. b. Contributed too by severe chronic obstructive pulmonary disease and obstructive sleep apnea and obesity. c. Requires assistance with all his ADLs. d. Improving. Yesterday, walked up to 90 feet with his rolling walker and caregiver standby assist as of 02/12/2019. 2. Hospitalized at [facility] from 01/21/2019 to 01/24/2019 for cellulitis of the left lower leg and wound to the left leg. 3. Cellulitis of the left lower leg. a. Required hospitalization from 01/21/2019 to 01/24/2019. b. Resolved as of 01/25/2019. No signs of recurrence as of 02/12/2019. 4. Two lacerations to the left lower leg. a. Occurred from hitting on a running board of a truck while trying to get into the truck that occurred on 01/14/2019. b. Allowing to heal by secondary intention. c. Continued gradual healing of the two lacerations as of 02/12/2019. 5. Chronic obstructive pulmonary disease. a. Complicated by chronic hypoxic and hypercapnic respiratory failure and contributed too by his severe obstructive sleep apnea. b. Stable as of 02/12/2019. 6. Severe obstructive sleep apnea. a. Required permanent tracheostomy, placed on 06/10/2011. b. Complicated by chronic hypoxic and hypercapnic respiratory failure. c. Stable and well controlled as of 02/12/2019. 7. Paroxysmal atrial fibrillation/atrial flutter. a. Controlled on Rythmol and on anticoagulant Eliquis. 8. Coronary artery disease. a. Status post bare metal stent in 2003 in the [facility]. b. Presently asymptomatic. 9. Morbid obesity. 10. Severe venous insufficiency of the lower extremities. a. Complicated by chronic stasis dermatitis. b. Complicated by frequent episodes of cellulitis. Most recent episodes; one requiring hospitalization from 12/17/2018 to 12/20/2018 and again from 01/21/2019 until 01/25/2019. c. Well controlled as of 02/12/2019. 11. Hypertension. 12. Hypothyroidism. 13. Chronic kidney disease. 14. Anxiety disorder. PLAN: Continue present wound care. Continue PT/OT. Continue trach care. Job ID: [id number] MTDD
[2019-02-12] MEDS: Montelukast Sodium 10 mg Tablet PO SCH (20:22)
[2019-02-12] MEDS: Atorvastatin Calcium 10 MG TAB PO SCH (20:23)
[2019-02-13] MEDS: Acetaminophen 325 MG TAB PO PRN (00:57)
[2019-02-13] MEDS: Propafenone HCl 150 MG TAB PO SCH ×3 (05:22→22:11)
[2019-02-13] MEDS: Levothyroxine Sodium 25 MCG TAB PO SCH (05:22)
[2019-02-13] MEDS ORDERED: Sterile Water Irrigation 250 ML BOT ONE (06:48)
[2019-02-13] MEDS ORDERED: Sodium Chloride Irrig Solution 250 ML BOT ONE (06:48)
[2019-02-13] MEDS: Spironolactone 25 MG TAB PO SCH (09:22)
[2019-02-13] MEDS: guaiFENesin ER 600 MG TAB PO SCH ×2 (09:22→22:10)
[2019-02-13] MEDS: Apixaban 5 MG TAB PO SCH ×2 (09:23→22:10)
[2019-02-13] MEDS: Furosemide 80 MG TAB PO SCH (09:23)
[2019-02-13] MEDS: Aspirin 81 mg Enteric Coated Tablet PO SCH (09:23)
--- NOTE | 2019-02-13 09:23 | PRG ---
DATE OF SERVICE: 02/13/2019 SUBJECTIVE: The patient said he is doing pretty good today. He walked a little further yesterday. He said he thinks he is doing good. He said he eventually gives out because he gets a little winded. Yesterday, he was able to walk 100 feet and then a second time 80 feet with his rolling walker and just caregiver assist. He requires [id number] assistance with transfers. OBJECTIVE: GENERAL: The patient is sitting up in his lounge chair. He is alert, looks very comfortable, talkative, and in no distress. VITAL SIGNS: His temperature is 96.4, pulse 67, respirations 20, O2 saturation 94%, blood pressure 118/68. LUNGS: Clear. Trach site clean. HEART: Regular rate. EXTREMITIES: Trace edema, a little more on the right than the left. Wound; the dressing is clean, this will be changed a little later this morning. ASSESSMENT: 1. Generalized weakness with gait abnormality. a. Secondary to severe deconditioning, aggravated by recent hospitalization from a laceration of the left leg. b. Contributed too by severe chronic obstructive pulmonary disease and obstructive sleep apnea and obesity. c. Requires assistance with all his ADLs. d. Improved. Yesterday, walked 100 feet once and 80 feet the second time. Requires some [id number] assistance with transferring from a chair as of 02/13/2019. 2. Hospitalized at [facility] from 01/21/2019 to 01/24/2019 for cellulitis of the left lower leg and wound to the left leg. 3. Cellulitis of the left lower leg. a. Required hospitalization from 01/21/2019 to 01/24/2019. b. Resolved as of 01/25/2019. No signs of recurrence as of 02/13/2019. 4. Two lacerations to the left lower leg. a. Occurred from hitting on a running board of a truck while trying to get into the truck that occurred on 01/14/2019. b. Allowing to heal by secondary intention. c. Continued gradual healing of the two lacerations as of 02/13/2019. 5. Chronic obstructive pulmonary disease. a. Complicated by chronic hypoxic and hypercapnic respiratory failure and contributed too by his severe obstructive sleep apnea. b. Stable as of 02/13/2019. 6. Severe obstructive sleep apnea. a. Required permanent tracheostomy, placed on 06/10/2011. b. Complicated by chronic hypoxic and hypercapnic respiratory failure. c. Stable and well controlled as of 02/13/2019. 7. Paroxysmal atrial fibrillation/atrial flutter. a. Controlled on Rythmol and on anticoagulant Eliquis. 8. Coronary artery disease. a. Status post bare metal stent in 2003 in the [facility]. b. Presently asymptomatic. 9. Morbid obesity. 10. Severe venous insufficiency of the lower extremities. a. Complicated by chronic stasis dermatitis. b. Complicated by frequent episodes of cellulitis. Most recent episodes; one requiring hospitalization from 12/17/2018 to 12/20/2018 and again from 01/21/2019 until 01/25/2019. c. Well controlled as of 02/13/2019. 11. Hypertension. 12. Hypothyroidism. 13. Chronic kidney disease. 14. Anxiety disorder. PLAN: Continue present wound care. Continue PT/OT. Job ID: [id number] MTDD
[2019-02-13] MEDS: Polyethylene Glycol 3350 17 GM Packet PO SCH (09:24)
[2019-02-13] MEDS: Keri Lotion 15 oz BOT TOP SCH (09:24)
[2019-02-13] MEDS: Atorvastatin Calcium 10 MG TAB PO SCH (22:10)
[2019-02-13] MEDS: Montelukast Sodium 10 mg Tablet PO SCH (22:11)
[2019-02-14] MEDS: Levothyroxine Sodium 25 MCG TAB PO SCH (05:50)
[2019-02-14] MEDS: Propafenone HCl 150 MG TAB PO SCH ×3 (05:50→21:16)
[2019-02-14] MEDS: Polyethylene Glycol 3350 17 GM Packet PO SCH (09:16)
[2019-02-14] MEDS: guaiFENesin ER 600 MG TAB PO SCH ×2 (09:17→21:15)
[2019-02-14] MEDS: Apixaban 5 MG TAB PO SCH ×2 (09:17→21:15)
[2019-02-14] MEDS: Furosemide 80 MG TAB PO SCH (09:17)
[2019-02-14] MEDS: Aspirin 81 mg Enteric Coated Tablet PO SCH (09:18)
[2019-02-14] MEDS: Spironolactone 25 MG TAB PO SCH (09:18)
[2019-02-14] MEDS: Keri Lotion 15 oz BOT TOP SCH (09:19)
--- NOTE | 2019-02-14 09:52 | PRG ---
DATE OF SERVICE: 02/14/2019 SUBJECTIVE: The patient says he is doing better. He has really no new complaints today. Nurses report no new problems. He has had his inner cannula cleaned on his trach this morning and there is just clear mucus. He has coughed up a little clear mucus this morning. His leg is not hurting him. Yesterday, he worked with Physical Therapy and he said he walked further. Review of the PT note shows that he walked 80 feet twice with his rolling walker and caregiver assist. He requires moderate assistance getting up from a chair to a standing position. OBJECTIVE: GENERAL: The patient is sitting up in his lounge chair. He is alert, appears very comfortable and in no distress. VITAL SIGNS: His temperature is 98, pulse 60, respirations 20, O2 saturation 94% with a trach collar at 5 L, blood pressure 108/58. LUNGS: Clear. Trach site is clean. He did cough up a little clear colorless mucus. HEART: Regular rate. EXTREMITIES: His left leg, the lacerations are smaller. There is little yellowish slough in the wound, is minimal and there was excellent granulation tissue budding up in the wound. There is some bridging of epithelial tissue in several areas along the length of the two lacerations. Overall, the wound looks excellent. The lower extremities have trace edema and the chronic stasis changes with a bluish discoloration. ASSESSMENT: 1. Generalized weakness with gait abnormality. a. Secondary to severe deconditioning, aggravated by recent hospitalization from a laceration of the left leg. b. Contributed too by severe chronic obstructive pulmonary disease and obstructive sleep apnea and obesity. c. Requires assistance with all his ADLs. d. Continued improvement. Walked 80 feet twice yesterday with standby assistance and his rolling walker, still requires moderate assistance on transfers as of 02/14/2019. 2. Hospitalized at [facility] from 01/21/2019 to 01/24/2019 for cellulitis of the left lower leg and wound to the left leg. 3. Cellulitis of the left lower leg. a. Required hospitalization from 01/21/2019 to 01/24/2019. b. Resolved as of 01/25/2019. No signs of recurrence as of 02/14/2019. 4. Two lacerations to the left lower leg. a. Occurred from hitting on a running board of a truck while trying to get into the truck that occurred on 01/14/2019. b. Allowing to heal by secondary intention. c. Continued healing of the two lacerations with no evidence of infection as of 02/14/2019. 5. Chronic obstructive pulmonary disease. a. Complicated by chronic hypoxic and hypercapnic respiratory failure and contributed too by his severe obstructive sleep apnea. b. Stable as of 02/14/2019. 6. Severe obstructive sleep apnea. a. Required permanent tracheostomy, placed on 06/10/2011. b. Complicated by chronic hypoxic and hypercapnic respiratory failure. c. Stable and well controlled as of 02/14/2019. 7. Paroxysmal atrial fibrillation/atrial flutter. a. Controlled on Rythmol and on anticoagulant Eliquis. 8. Coronary artery disease. a. Status post bare metal stent in 2003 in the [facility]. b. Presently asymptomatic. 9. Morbid obesity. 10. Severe venous insufficiency of the lower extremities. a. Complicated by chronic stasis dermatitis. b. Complicated by frequent episodes of cellulitis. Most recent episodes; one requiring hospitalization from 12/17/2018 to 12/20/2018 and again from 01/21/2019 until 01/25/2019. c. Well controlled as of 02/14/2019. 11. Hypertension. 12. Hypothyroidism. 13. Chronic kidney disease. 14. Anxiety disorder. PLAN: The patient is making good progress. His wounds were healing. We will continue the wound care and continue the PT and OT. Job ID: [id number] MTDD
[2019-02-14] MEDS: Atorvastatin Calcium 10 MG TAB PO SCH (21:15)
[2019-02-14] MEDS: Montelukast Sodium 10 mg Tablet PO SCH (21:16)
[2019-02-15] MEDS: Lorazepam 1 MG TAB PO PRN (02:06)
[2019-02-15] MEDS: Propafenone HCl 150 MG TAB PO SCH ×3 (05:35→21:26)
[2019-02-15] MEDS: Levothyroxine Sodium 25 MCG TAB PO SCH (05:36)
[2019-02-15] MEDS: Polyethylene Glycol 3350 17 GM Packet PO SCH (08:55)
[2019-02-15] MEDS: Spironolactone 25 MG TAB PO SCH (08:56)
[2019-02-15] MEDS: Keri Lotion 15 oz BOT TOP SCH (08:56)
[2019-02-15] MEDS: Apixaban 5 MG TAB PO SCH ×2 (08:56→21:23)
[2019-02-15] MEDS: Aspirin 81 mg Enteric Coated Tablet PO SCH (08:56)
[2019-02-15] MEDS: guaiFENesin ER 600 MG TAB PO SCH ×2 (08:56→21:23)
[2019-02-15] MEDS: Furosemide 80 MG TAB PO SCH (08:56)
[2019-02-15] MEDS: Atorvastatin Calcium 10 MG TAB PO SCH (21:23)
[2019-02-15] MEDS: Montelukast Sodium 10 mg Tablet PO SCH (21:25)
[2019-02-16] MEDS: Propafenone HCl 150 MG TAB PO SCH ×3 (05:46→21:14)
[2019-02-16] MEDS: Levothyroxine Sodium 25 MCG TAB PO SCH (05:46)
[2019-02-16] MEDS: Spironolactone 25 MG TAB PO SCH (08:34)
[2019-02-16] MEDS: Polyethylene Glycol 3350 17 GM Packet PO SCH (08:34)
[2019-02-16] MEDS: Aspirin 81 mg Enteric Coated Tablet PO SCH (08:35)
[2019-02-16] MEDS: Apixaban 5 MG TAB PO SCH ×2 (08:35→21:13)
[2019-02-16] MEDS: Furosemide 80 MG TAB PO SCH (08:35)
[2019-02-16] MEDS: guaiFENesin ER 600 MG TAB PO SCH ×2 (08:35→21:13)
[2019-02-16] MEDS: Keri Lotion 15 oz BOT TOP SCH (08:36)
[2019-02-16] MEDS: Atorvastatin Calcium 10 MG TAB PO SCH (21:13)
[2019-02-16] MEDS: Montelukast Sodium 10 mg Tablet PO SCH (21:14)
[2019-02-17] MEDS: Lorazepam 1 MG TAB PO PRN (01:15)
[2019-02-17] MEDS: Levothyroxine Sodium 25 MCG TAB PO SCH (05:48)
[2019-02-17] MEDS: Propafenone HCl 150 MG TAB PO SCH ×3 (05:48→22:18)
[2019-02-17] MEDS: Polyethylene Glycol 3350 17 GM Packet PO SCH (09:05)
[2019-02-17] MEDS: Furosemide 80 MG TAB PO SCH (09:06)
[2019-02-17] MEDS: Apixaban 5 MG TAB PO SCH ×2 (09:06→22:17)
[2019-02-17] MEDS: Spironolactone 25 MG TAB PO SCH (09:06)
[2019-02-17] MEDS: Aspirin 81 mg Enteric Coated Tablet PO SCH (09:06)
[2019-02-17] MEDS: guaiFENesin ER 600 MG TAB PO SCH ×2 (09:06→22:17)
[2019-02-17] MEDS: Keri Lotion 15 oz BOT TOP SCH (09:07)
--- NOTE | 2019-02-17 09:31 | PRG ---
DATE OF SERVICE: 02/15/2019 SUBJECTIVE: The patient said he is doing fine. He said he had a bad dream last night, otherwise he is fine. His breathing is doing good. His leg feels good. He is making further progress with physical therapy. OBJECTIVE: GENERAL: The patient is sitting up in his chair, preparing to eat lunch. He looks very comfortable, talkative, and in no distress. VITAL SIGNS: Show a temperature of 97.2, pulse of 64, respirations are 20, O2 sat is 93% with the trach collar at 5 L, blood pressure of 106/62. LUNGS: Clear. HEART: Regular rate. EXTREMITIES: Trace edema. Chronic skin changes from the stasis. Wounds continued to gradually heal. ASSESSMENT: 1. Generalized weakness with gait abnormality. a. Secondary to severe deconditioning, aggravated by recent hospitalization from a laceration of the left leg. b. Contributed too by severe chronic obstructive pulmonary disease and obstructive sleep apnea and obesity. c. Requires assistance with all his ADLs. d. Continued improvement. Walked 80 feet twice yesterday with standby assistance and his rolling walker, still requires moderate assistance on transfers as of 02/15/2019. 2. Hospitalized at [facility] from 01/21/2019 to 01/24/2019 for cellulitis of the left lower leg and wound to the left leg. 3. Cellulitis of the left lower leg. a. Required hospitalization from 01/21/2019 to 01/24/2019. b. Resolved as of 01/25/2019. No signs of recurrence as of 02/15/2019. 4. Two lacerations to the left lower leg. a. Occurred from hitting on a running board of a truck while trying to get into the truck that occurred on 01/14/2019. b. Allowing to heal by secondary intention. c. Continued healing of the two lacerations with no evidence of infection as of 02/15/2019. 5. Chronic obstructive pulmonary disease. a. Complicated by chronic hypoxic and hypercapnic respiratory failure and contributed too by his severe obstructive sleep apnea. b. Stable as of 02/15/2019. 6. Severe obstructive sleep apnea. a. Required permanent tracheostomy, placed on 06/10/2011. b. Complicated by chronic hypoxic and hypercapnic respiratory failure. c. Stable and well controlled as of 02/15/2019. 7. Paroxysmal atrial fibrillation/atrial flutter. a. Controlled on Rythmol and on anticoagulant Eliquis. 8. Coronary artery disease. a. Status post bare metal stent in 2004 in the [facility]. b. Presently asymptomatic. 9. Morbid obesity. 10. Severe venous insufficiency of the lower extremities. a. Complicated by chronic stasis dermatitis. b. Complicated by frequent episodes of cellulitis. Most recent episodes; one requiring hospitalization from 12/17/2018 to 12/20/2018 and again from 01/21/2019 until 01/25/2019. c. Well controlled as of 02/15/2019. 11. Hypertension. 12. Hypothyroidism. 13. Chronic kidney disease. 14. Anxiety disorder. PLAN: Continue present care. Continue present wound care. Continue PT/OT. Job ID: [id number] [id number]
--- NOTE | 2019-02-17 09:34 | PRG ---
DATE OF SERVICE: 02/17/2019 SUBJECTIVE: The patient said he is doing well this morning. The patient said he did not rest as well last evening, but this morning, he is feeling good. He is up in his lounge chair with the feet elevated. OBJECTIVE: GENERAL: The patient is alert, talkative, appears very comfortable, in no distress. VITAL SIGNS: He is afebrile, pulse is 72, respirations 22, O2 saturation 95% on 5 L, blood pressure 116/66. LUNGS: Clear. HEART: Regular rate. Trach site, clean. EXTREMITIES: Lower extremities; chronic stasis change with a blue discoloration of the legs. The laceration on the left lower leg continues to get smaller and looked very clean. ASSESSMENT: 1. Generalized weakness with gait abnormality. a. Secondary to severe deconditioning, aggravated by recent hospitalization from a laceration of the left leg. b. Contributed too by severe chronic obstructive pulmonary disease and obstructive sleep apnea and obesity. c. Requires assistance with all his ADLs. d. Continued improvement. Last walk was up to 80 feet twice. Physical therapy will resume this Sunday as of 02/17/2019. 2. Hospitalized at [facility] from 01/21/2019 to 01/24/2019 for cellulitis of the left lower leg and wound to the left leg. 3. Cellulitis of the left lower leg. a. Required hospitalization from 01/21/2019 to 01/24/2019. b. Resolved as of 01/25/2019. No signs of recurrence as of 02/17/2019. 4. Two lacerations to the left lower leg. a. Occurred from hitting on a running board of a truck while trying to get into the truck that occurred on 01/14/2019. b. Allowing to heal by secondary intention. c. Continued healing of the two lacerations with no evidence of infection as of 02/17/2019. 5. Chronic obstructive pulmonary disease. a. Complicated by chronic hypoxic and hypercapnic respiratory failure and contributed too by his severe obstructive sleep apnea. b. Stable as of 02/17/2019. 6. Severe obstructive sleep apnea. a. Required permanent tracheostomy, placed on 06/10/2011. b. Complicated by chronic hypoxic and hypercapnic respiratory failure. c. Stable and well controlled as of 02/17/2019. 7. Paroxysmal atrial fibrillation/atrial flutter. a. Controlled on Rythmol and on anticoagulant Eliquis. 8. Coronary artery disease. a. Status post bare metal stent in 2004 in the [facility]. b. Presently asymptomatic. 9. Morbid obesity. 10. Severe venous insufficiency of the lower extremities. a. Complicated by chronic stasis dermatitis. b. Complicated by frequent episodes of cellulitis. Most recent episodes; one requiring hospitalization from 12/17/2018 to 12/20/2018 and again from 01/21/2019 until 01/25/2019. c. Well controlled as of 02/17/2019. 11. Hypertension. 12. Hypothyroidism. 13. Chronic kidney disease. 14. Anxiety disorder. PLAN: The patient's wound continues to get smaller and very clean. Anticipate that this will completely heal. We will continue present care. Continue PT/OT. Job ID: [id number] JF
[2019-02-17] MEDS: Atorvastatin Calcium 10 MG TAB PO SCH (22:17)
[2019-02-17] MEDS: Montelukast Sodium 10 mg Tablet PO SCH (22:18)
[2019-02-18] MEDS: Propafenone HCl 150 MG TAB PO SCH ×3 (05:37→21:25)
[2019-02-18] MEDS: Levothyroxine Sodium 25 MCG TAB PO SCH (05:38)
[2019-02-18] MEDS: Polyethylene Glycol 3350 17 GM Packet PO SCH (08:24)
[2019-02-18] MEDS: Spironolactone 25 MG TAB PO SCH (08:25)
[2019-02-18] MEDS: Apixaban 5 MG TAB PO SCH ×2 (08:25→21:24)
[2019-02-18] MEDS: Aspirin 81 mg Enteric Coated Tablet PO SCH (08:25)
[2019-02-18] MEDS: Furosemide 80 MG TAB PO SCH (08:25)
[2019-02-18] MEDS: guaiFENesin ER 600 MG TAB PO SCH ×2 (08:25→21:24)
[2019-02-18] MEDS: Keri Lotion 15 oz BOT TOP SCH (08:27)
[2019-02-18] MEDS: Atorvastatin Calcium 10 MG TAB PO SCH (21:24)
[2019-02-18] MEDS: Montelukast Sodium 10 mg Tablet PO SCH (21:25)
[2019-02-19] MEDS: Propafenone HCl 150 MG TAB PO SCH ×3 (05:11→21:03)
[2019-02-19] MEDS: Levothyroxine Sodium 25 MCG TAB PO SCH (05:12)
[2019-02-19] MEDS: Polyethylene Glycol 3350 17 GM Packet PO SCH (08:11)
[2019-02-19] MEDS: Furosemide 80 MG TAB PO SCH (08:12)
[2019-02-19] MEDS: Aspirin 81 mg Enteric Coated Tablet PO SCH (08:12)
[2019-02-19] MEDS: Spironolactone 25 MG TAB PO SCH (08:12)
[2019-02-19] MEDS: guaiFENesin ER 600 MG TAB PO SCH ×2 (08:12→21:02)
[2019-02-19] MEDS: Apixaban 5 MG TAB PO SCH ×2 (08:12→21:02)
[2019-02-19] MEDS: Keri Lotion 15 oz BOT TOP SCH (08:13)
--- NOTE | 2019-02-19 08:55 | PRG ---
DATE OF SERVICE: 02/19/2019 SUBJECTIVE: The patient said he slept excellent last night. Said he slept 9 hours. His breathing is doing good. He is leaving the O2 off during the day and sleeping with it on at night, which is working well. His leg is not hurting. He is walking further. This morning, he said he has already been out with Physical Therapy and has walked, he said 400 feet. OBJECTIVE: GENERAL: The patient is sitting up in his lounge chair. He is alert, talkative, appears very comfortable, and in no distress. VITAL SIGNS: His temperature is 97.5, pulse 74, respirations 20, O2 saturation 93% on room air, blood pressure 104/53. His weight is 267. LUNGS: Clear. HEART: Regular rate. Trach site is clean. EXTREMITIES: Lower extremities have the chronic stasis changes with a bluish hue. The skin is intact except for the two lacerations on the left anterior lower leg , but these continued to get smaller and are healing. ASSESSMENT: 1. Generalized weakness with gait abnormality. a. Secondary to severe deconditioning, aggravated by recent hospitalization from a laceration of the left leg. b. Contributed too by severe chronic obstructive pulmonary disease and obstructive sleep apnea and obesity. c. Requires assistance with all his ADLs. d. Continued improvement. Last walk was up to 80 feet twice. Physical therapy will resume this Sunday morning as of 02/19/2019. 2. Hospitalized at [facility] from 01/21/2019 to 01/24/2019 for cellulitis of the left lower leg and wound to the left leg. 3. Cellulitis of the left lower leg. a. Required hospitalization from 01/21/2019 to 01/24/2019. b. Resolved as of 01/25/2019. No signs of recurrence as of 02/19/2019. 4. Two lacerations to the left lower leg. a. Occurred from hitting on a running board of a truck while trying to get into the truck that occurred on 01/14/2019. b. Allowing to heal by secondary intention. c. Continued healing of the two lacerations with no evidence of infection as of 02/19/2019. 5. Chronic obstructive pulmonary disease. a. Complicated by chronic hypoxic and hypercapnic respiratory failure and contributed too by his severe obstructive sleep apnea. b. Stable as of 02/19/2019. 6. Severe obstructive sleep apnea. a. Required permanent tracheostomy, placed on 06/10/2011. b. Complicated by chronic hypoxic and hypercapnic respiratory failure. c. Stable and well controlled as of 02/19/2019. 7. Paroxysmal atrial fibrillation/atrial flutter. a. Controlled on Rythmol and on anticoagulant Eliquis. 8. Coronary artery disease. a. Status post bare metal stent in 2003 in the ramus. b. Presently asymptomatic. 9. Morbid obesity. 10. Severe venous insufficiency of the lower extremities. a. Complicated by chronic stasis dermatitis. b. Complicated by frequent episodes of cellulitis. Most recent episodes; one requiring hospitalization from 12/17/2018 to 12/20/2018 and again from 01/21/2019 until 01/25/2019. c. Well controlled as of 02/19/2019. 11. Hypertension. 12. Hypothyroidism. 13. Chronic kidney disease. 14. Anxiety disorder. PLAN: Continue PT. Continue wound care. [facility] ID[facility] [id number] [facility]
[2019-02-19] MEDS: Atorvastatin Calcium 10 MG TAB PO SCH (21:02)
[2019-02-19] MEDS: Montelukast Sodium 10 mg Tablet PO SCH (21:03)
[2019-02-20] MEDS: Propafenone HCl 150 MG TAB PO SCH ×3 (05:46→21:03)
[2019-02-20] MEDS: Levothyroxine Sodium 25 MCG TAB PO SCH (05:46)
[2019-02-20] MEDS: Polyethylene Glycol 3350 17 GM Packet PO SCH (08:31)
[2019-02-20] MEDS: guaiFENesin ER 600 MG TAB PO SCH ×2 (08:32→20:36)
[2019-02-20] MEDS: Aspirin 81 mg Enteric Coated Tablet PO SCH (08:32)
[2019-02-20] MEDS: Apixaban 5 MG TAB PO SCH ×2 (08:32→20:37)
[2019-02-20] MEDS: Spironolactone 25 MG TAB PO SCH (08:32)
[2019-02-20] MEDS: Furosemide 80 MG TAB PO SCH (08:32)
[2019-02-20] MEDS: Keri Lotion 15 oz BOT TOP SCH (08:34)
[2019-02-20] MEDS: Atorvastatin Calcium 10 MG TAB PO SCH (20:37)
[2019-02-20] MEDS: Montelukast Sodium 10 mg Tablet PO SCH (20:37)
[2019-02-21] MEDS: Propafenone HCl 150 MG TAB PO SCH ×3 (05:28→21:43)
[2019-02-21] MEDS: Levothyroxine Sodium 25 MCG TAB PO SCH (05:29)
[2019-02-21] MEDS: Polyethylene Glycol 3350 17 GM Packet PO SCH (08:01)
[2019-02-21] MEDS: Furosemide 80 MG TAB PO SCH (08:02)
[2019-02-21] MEDS: Aspirin 81 mg Enteric Coated Tablet PO SCH (08:02)
[2019-02-21] MEDS: guaiFENesin ER 600 MG TAB PO SCH ×2 (08:02→21:41)
[2019-02-21] MEDS: Apixaban 5 MG TAB PO SCH ×2 (08:02→21:44)
[2019-02-21] MEDS: Spironolactone 25 MG TAB PO SCH (08:03)
[2019-02-21] MEDS: Keri Lotion 15 oz BOT TOP SCH (08:03)
[2019-02-21] MEDS ORDERED: Sterile Water Irrigation 250 ML BOT ONE (09:04)
[2019-02-21] MEDS ORDERED: Sodium Chloride Irrig Solution 250 ML BOT ONE (09:04)
--- NOTE | 2019-02-21 14:54 | PRG ---
DATE OF SERVICE: 02/21/2019 SUBJECTIVE: The patient said he is feeling good. His breathing is doing good. His legs feeling better and continues to heal. He is doing better with his physical therapy. Yesterday, he walked up to 75 feet twice and this morning already walked 90 feet with his rolling walker and supervision. He is transferring with just supervision. OBJECTIVE: GENERAL: The patient is sitting up in his chair. He is alert, appears very comfortable, in no distress. VITAL SIGNS: His temperature is 97.2, pulse 68, respirations 22, O2 saturation 94% on room air, blood pressure 130/63. His weight is stable at 266. LUNGS: Clear. HEART: Regular rate. Trach site is clean. EXTREMITIES: Lower extremities have just trace edema. There is chronic blue discoloration from the chronic stasis. The lacerations on the left lower leg continue to get smaller and healing. They are shorter in length and there are more broader areas of bridging. Overall, both wounds look excellent. ASSESSMENT: 1. Generalized weakness with gait abnormality. a. Secondary to severe deconditioning, aggravated by recent hospitalization from a laceration of the left leg. b. Contributed too by severe chronic obstructive pulmonary disease and obstructive sleep apnea and obesity. c. Requires assistance with all his ADLs. d. Continued improvement. Walking up to 90 feet with a rolling walker and just standby assistance, transferring independently with standby assistance as of 02/21/2019. 2. Hospitalized at [facility] from 01/21/2019 to 01/24/2019 for cellulitis of the left lower leg and wound to the left leg. 3. Cellulitis of the left lower leg. a. Required hospitalization from 01/21/2019 to 01/24/2019. b. Resolved as of 01/25/2019. No signs of recurrence as of 02/21/2019. 4. Two lacerations to the left lower leg. a. Occurred from hitting on a running board of a truck while trying to get into the truck that occurred on 01/14/2019. b. Allowing to heal by secondary intention. c. Continued healing of the two lacerations with no evidence of infection as of 02/21/2019. 5. Chronic obstructive pulmonary disease. a. Complicated by chronic hypoxic and hypercapnic respiratory failure and contributed too by his severe obstructive sleep apnea. b. Stable as of 02/21/2019. 6. Severe obstructive sleep apnea. a. Required permanent tracheostomy, placed on 06/10/2011. b. Complicated by chronic hypoxic and hypercapnic respiratory failure. c. Stable and well controlled as of 02/21/2019. 7. Paroxysmal atrial fibrillation/atrial flutter. a. Controlled on Rythmol and on anticoagulant Eliquis. 8. Coronary artery disease. a. Status post bare metal stent in 2003 in the ramus. b. Presently asymptomatic. 9. Morbid obesity. 10. Severe venous insufficiency of the lower extremities. a. Complicated by chronic stasis dermatitis. b. Complicated by frequent episodes of cellulitis. Most recent episodes; one requiring hospitalization from 12/17/2018 to 12/20/2018 and again from 01/21/2019 until 01/25/2019. c. Well controlled as of 02/21/2019. 11. Hypertension. 12. Hypothyroidism. 13. Chronic kidney disease. 14. Anxiety disorder. PLAN: Continue present care. Continue present wound care. Continue PT/OT. The patient's is going to home today after she will have help to assist her. After few days, as the patient continues to improve, anticipate that he will be able to go home assuming that they have adequate support. Job ID: [id number] [facility]
[2019-02-21] MEDS: Atorvastatin Calcium 10 MG TAB PO SCH (21:44)
[2019-02-21] MEDS: Montelukast Sodium 10 mg Tablet PO SCH (21:44)
[2019-02-22] MEDS: Levothyroxine Sodium 25 MCG TAB PO SCH (05:56)
[2019-02-22] MEDS: Propafenone HCl 150 MG TAB PO SCH ×3 (05:56→21:30)
[2019-02-22] MEDS: Furosemide 80 MG TAB PO SCH (08:50)
[2019-02-22] MEDS: Polyethylene Glycol 3350 17 GM Packet PO SCH (08:50)
[2019-02-22] MEDS: Aspirin 81 mg Enteric Coated Tablet PO SCH (08:51)
[2019-02-22] MEDS: Spironolactone 25 MG TAB PO SCH (08:51)
[2019-02-22] MEDS: guaiFENesin ER 600 MG TAB PO SCH ×2 (08:51→21:30)
[2019-02-22] MEDS: Apixaban 5 MG TAB PO SCH ×2 (08:51→21:32)
[2019-02-22] MEDS: Keri Lotion 15 oz BOT TOP SCH (08:53)
[2019-02-22] MEDS: Montelukast Sodium 10 mg Tablet PO SCH (21:29)
[2019-02-22] MEDS: Atorvastatin Calcium 10 MG TAB PO SCH (21:31)
[2019-02-23] MEDS: Levothyroxine Sodium 25 MCG TAB PO SCH (05:29)
[2019-02-23] MEDS: Propafenone HCl 150 MG TAB PO SCH ×3 (05:29→21:14)
[2019-02-23] MEDS: Polyethylene Glycol 3350 17 GM Packet PO SCH (08:45)
[2019-02-23] MEDS: Aspirin 81 mg Enteric Coated Tablet PO SCH (08:53)
[2019-02-23] MEDS: guaiFENesin ER 600 MG TAB PO SCH ×2 (08:53→21:12)
[2019-02-23] MEDS: Apixaban 5 MG TAB PO SCH ×2 (08:53→21:10)
[2019-02-23] MEDS: Furosemide 80 MG TAB PO SCH (08:53)
[2019-02-23] MEDS: Spironolactone 25 MG TAB PO SCH (08:53)
[2019-02-23] MEDS: Keri Lotion 15 oz BOT TOP SCH (08:59)
[2019-02-23] MEDS: Atorvastatin Calcium 10 MG TAB PO SCH (21:11)
[2019-02-23] MEDS: Montelukast Sodium 10 mg Tablet PO SCH (21:14)
[2019-02-24] MEDS: Propafenone HCl 150 MG TAB PO SCH ×3 (05:02→21:15)
[2019-02-24] MEDS: Levothyroxine Sodium 25 MCG TAB PO SCH (05:05)
--- NOTE | 2019-02-24 07:20 | PRG ---
DATE OF SERVICE: 02/22/2019 SUBJECTIVE: The patient is doing good. He said his breathing is doing good. He is doing good with physical therapy. Yesterday, he walked 90 feet on 3 different occasions with his rolling walker and supervision. His transfers are being done with supervision and some assistance. Preparations are being made for his discharge in the middle of this next week, probably 02/26. His is now in home. She is doing well there and has help in the home. OBJECTIVE: GENERAL: The patient is sitting up in his chair. He is alert, looks very comfortable. He is talkative and seems very happy. VITAL SIGNS: Temperature 96.7, pulse 64, respirations 18, O2 saturation 93% on room air, and blood pressure 106/58. His weight is 265. Admission weight was 277. LUNGS: Clear. HEART: Regular rate. Trach site is clean. LOWER EXTREMITIES: Just trace edema. The bandages are clean. The wounds have been slowly healing. He has the chronic stasis changes with a blue hue to the lower extremities. There are no ulcerations. ASSESSMENT: 1. Generalized weakness with gait abnormality. a. Secondary to severe deconditioning, aggravated by recent hospitalization from a laceration of the left leg. b. Contributed too by severe chronic obstructive pulmonary disease and obstructive sleep apnea and obesity. c. Requires assistance with all his ADLs. d. Continued improvement. Walking up to 90 feet with a rolling walker and just standby assistance, transferring independently with standby assistance as of 02/22/2019. 2. Hospitalized at [facility] from 01/21/2019 to 01/24/2019 for cellulitis of the left lower leg and wound to the left leg. 3. Cellulitis of the left lower leg. a. Required hospitalization from 01/21/2019 to 01/24/2019. b. Resolved as of 01/25/2019. No signs of recurrence as of 02/22/2019. 4. Two lacerations to the left lower leg. a. Occurred from hitting on a running board of a truck while trying to get into the truck that occurred on 01/14/2019. b. Allowing to heal by secondary intention. c. Continued healing of the two lacerations with no evidence of infection as of 02/22/2019. 5. Chronic obstructive pulmonary disease. a. Complicated by chronic hypoxic and hypercapnic respiratory failure and contributed too by his severe obstructive sleep apnea. b. Stable as of 02/22/2019. 6. Severe obstructive sleep apnea. a. Required permanent tracheostomy, placed on 06/10/2011. b. Complicated by chronic hypoxic and hypercapnic respiratory failure. c. Stable and well controlled as of 02/22/2019. 7. Paroxysmal atrial fibrillation/atrial flutter. a. Controlled on Rythmol and on anticoagulant Eliquis. 8. Coronary artery disease. a. Status post bare metal stent in 2003 in the ramus. b. Presently asymptomatic. 9. Morbid obesity. 10. Severe venous insufficiency of the lower extremities. a. Complicated by chronic stasis dermatitis. b. Complicated by frequent episodes of cellulitis. Most recent episodes; one requiring hospitalization from 12/17/2018 to 12/20/2018 and again from 01/21/2019 until 01/25/2019. c. Well controlled as of 02/22/2019. 11. Hypertension. 12. Hypothyroidism. 13. Chronic kidney disease. 14. Anxiety disorder. PLAN: Continue present wound care. Continue PT. Continue trach care. Anticipate discharge probably 02/26. Job ID: [id number] [facility]
[2019-02-24] MEDS: Furosemide 80 MG TAB PO SCH (08:54)
[2019-02-24] MEDS: Aspirin 81 mg Enteric Coated Tablet PO SCH (08:54)
[2019-02-24] MEDS: guaiFENesin ER 600 MG TAB PO SCH ×2 (08:54→20:49)
[2019-02-24] MEDS: Polyethylene Glycol 3350 17 GM Packet PO SCH (08:55)
[2019-02-24] MEDS: Spironolactone 25 MG TAB PO SCH (08:55)
[2019-02-24] MEDS: Keri Lotion 15 oz BOT TOP SCH (08:55)
[2019-02-24] MEDS: Apixaban 5 MG TAB PO SCH ×2 (08:55→20:50)
--- NOTE | 2019-02-24 10:06 | PRG ---
DATE OF SERVICE: 02/24/2019 SUBJECTIVE: The patient says he is feeling good. He had a good night. His breathing is doing good. His legs feeling better. Preparations are being made at his home for his discharge tentatively on 02/26. OBJECTIVE: GENERAL: The patient is sitting up in his chair. He is alert, talkative, appears comfortable, in no distress. VITAL SIGNS: Temperature 97, pulse 64, respirations 22, O2 saturation 92% on room air, and blood pressure 103/58. HEENT: His trach site is clean. LUNGS: Clear. HEART: Regular rate. EXTREMITIES: Lower extremities have trace edema. He has the chronic stasis changes with bluish discoloration. The lacerations over the left lower leg are almost totally healed. ASSESSMENT: 1. Generalized weakness with gait abnormality. a. Secondary to severe deconditioning, aggravated by recent hospitalization from a laceration of the left leg. b. Contributed too by severe chronic obstructive pulmonary disease and obstructive sleep apnea and obesity. c. Requires assistance with all his ADLs. d. Continued improvement. Walking up to 90 feet with a rolling walker and just standby assistance, transferring independently with standby assistance as of 02/24/2019. 2. Hospitalized at [facility] from 01/21/2019 to 01/24/2019 for cellulitis of the left lower leg and wound to the left leg. 3. Cellulitis of the left lower leg. a. Required hospitalization from 01/21/2019 to 01/24/2019. b. Resolved as of 01/25/2019. No signs of recurrence as of 02/24/2019. 4. Two lacerations to the left lower leg. a. Occurred from hitting on a running board of a truck while trying to get into the truck that occurred on 01/14/2019. b. Allowing to heal by secondary intention. c. Wounds are almost healed as of 02/24/2019. 5. Chronic obstructive pulmonary disease. a. Complicated by chronic hypoxic and hypercapnic respiratory failure and contributed too by his severe obstructive sleep apnea. b. Stable as of 02/24/2019. 6. Severe obstructive sleep apnea. a. Required permanent tracheostomy, placed on 06/10/2011. b. Complicated by chronic hypoxic and hypercapnic respiratory failure. c. Stable and well controlled as of 02/24/2019. 7. Paroxysmal atrial fibrillation/atrial flutter. a. Controlled on Rythmol and on anticoagulant Eliquis. 8. Coronary artery disease. a. Status post bare metal stent in 2004 in the ramus. b. Presently asymptomatic. 9. Morbid obesity. 10. Severe venous insufficiency of the lower extremities. a. Complicated by chronic stasis dermatitis. b. Complicated by frequent episodes of cellulitis. Most recent episodes; one requiring hospitalization from 12/17/2018 to 12/20/2018 and again from 01/21/2019 until 01/25/2019. c. Well controlled as of 02/21/2019. 11. Hypertension. 12. Hypothyroidism. 13. Chronic kidney disease. 14. Anxiety disorder. PLAN: Continue present wound care. Continue PT/OT. Tentatively, we will discharge the patient on 02/26. Job ID: [id number] [facility]
[2019-02-24] MEDS: Atorvastatin Calcium 10 MG TAB PO SCH (20:48)
[2019-02-24] MEDS: Montelukast Sodium 10 mg Tablet PO SCH (20:50)
[2019-02-25] MEDS: Levothyroxine Sodium 25 MCG TAB PO SCH (05:24)
[2019-02-25] MEDS: Propafenone HCl 150 MG TAB PO SCH ×3 (05:25→21:06)
[2019-02-25] MEDS: Polyethylene Glycol 3350 17 GM Packet PO SCH (07:57)
[2019-02-25] MEDS: Apixaban 5 MG TAB PO SCH ×2 (07:58→20:42)
[2019-02-25] MEDS: Spironolactone 25 MG TAB PO SCH (07:58)
[2019-02-25] MEDS: Furosemide 80 MG TAB PO SCH (07:58)
[2019-02-25] MEDS: Aspirin 81 mg Enteric Coated Tablet PO SCH (07:58)
[2019-02-25] MEDS: guaiFENesin ER 600 MG TAB PO SCH ×2 (07:58→20:41)
[2019-02-25] MEDS: Keri Lotion 15 oz BOT TOP SCH (07:59)
[2019-02-25] MEDS: Atorvastatin Calcium 10 MG TAB PO SCH (20:41)
[2019-02-25] MEDS: Montelukast Sodium 10 mg Tablet PO SCH (20:42)
[2019-02-26] MEDS: Propafenone HCl 150 MG TAB PO SCH (05:29)
[2019-02-26] MEDS: Levothyroxine Sodium 25 MCG TAB PO SCH (05:30)
[2019-02-26 05:38] VITALS: BMI 35.9
[2019-02-26 07:03] VITALS: BP 110/57; TEMP 97.3
[2019-02-26] MEDS: Polyethylene Glycol 3350 17 GM Packet PO SCH (08:35)
[2019-02-26] MEDS: Aspirin 81 mg Enteric Coated Tablet PO SCH (08:36)
[2019-02-26] MEDS: Furosemide 80 MG TAB PO SCH (08:37)
[2019-02-26] MEDS: Apixaban 5 MG TAB PO SCH (08:37)
[2019-02-26] MEDS: guaiFENesin ER 600 MG TAB PO SCH (08:37)
[2019-02-26] MEDS: Spironolactone 25 MG TAB PO SCH (08:37)
[2019-02-26] MEDS: Keri Lotion 15 oz BOT TOP SCH (08:40)
--- NOTE | 2019-02-27 08:11 | DIS ---
DATE OF ADMISSION: 01/24/2019 DATE OF DISCHARGE: 02/26/2019 FINAL DIAGNOSES: 1. Generalized weakness with gait abnormality. a. Secondary to severe deconditioning, aggravated by recent hospitalization from a laceration of the left leg. b. Contributed too by severe chronic obstructive pulmonary disease and obstructive sleep apnea and obesity. c. Requires assistance with all his ADLs. d. Continued improvement. Walking from 100 to 300 feet with a rolling walker and standby assistance. Transferring independently with standby assistance as of 02/26/2019. 2. Hospitalized at [facility] from 01/21/2019 to 01/24/2019 for cellulitis of the left lower leg and wound to the left leg. 3. Cellulitis of the left lower leg. a. Required hospitalization from 01/21/2019 to 01/24/2019. b. Resolved as of 01/25/2019. No signs of recurrence as of 02/26/2019. 4. Two lacerations to the left lower leg. a. Occurred from hitting on a running board of a truck while trying to get into the truck that occurred on 01/14/2019. b. Allowing to heal by secondary intention. c. Wounds are almost healed as of 02/26/2019. 5. Chronic obstructive pulmonary disease. a. Complicated by chronic hypoxic and hypercapnic respiratory failure and contributed too by his severe obstructive sleep apnea. b. Stable as of 02/26/2019. 6. Severe obstructive sleep apnea. a. Required permanent tracheostomy, placed on 06/10/2011. b. Complicated by chronic hypoxic and hypercapnic respiratory failure. c. Stable and well controlled as of 02/26/2019. 7. Paroxysmal atrial fibrillation/atrial flutter. a. Controlled on Rythmol and on anticoagulant Eliquis. 8. Coronary artery disease. a. Status post bare metal stent in 2004 in the ramus. b. Presently asymptomatic. 9. Morbid obesity. 10. Severe venous insufficiency of the lower extremities. a. Complicated by chronic stasis dermatitis. b. Complicated by frequent episodes of cellulitis. Most recent episodes; one requiring hospitalization from 12/17/2018 to 12/20/2018 and again from 01/21/2019 until 01/25/2019. c. Well controlled as of 02/26/2019. 11. Hypertension. 12. Hypothyroidism. 13. Chronic kidney disease. 14. Anxiety disorder. SUMMARY: The patient is an 83-year-old white male, who has a history of severe obstructive pulmonary disease and obstructive sleep apnea and obesity, which has required a permanent tracheostomy. He has a history of hypertension, hypothyroidism, and chronic kidney disease. He has severe venous insufficiency of the lower extremity with chronic stasis dermatitis of the lower legs and frequent episodes of cellulitis of the lower extremities. He has coronary artery disease, for which he has had a stent in 2004, but since has remained asymptomatic. He has paroxysmal atrial fibrillation, flutter that is controlled with Rythmol and on anticoagulant Eliquis. The patient's severe obstructive sleep apnea had been complicated by chronic hypoxic and hypercapnic respiratory failure that is controlled with a permanent trach. The patient has generalized weakness and requires assistance with his care. He lives at home, where his assists him with all his instrumental activities of daily living and some of his ADLs. The patient had had a recent fall, where he was trying to get in his truck and slipped on the running board and fell hitting the left anterior lower leg and sustained 2 large lacerations on 2017. He went to the emergency room and emergency room physician did not think that this could be effectively closed due to his chronic stasis dermatitis. The thinning of the skin and the edema was opted to allow this to heal by secondary intention. This was done initially with wet-to-dry dressings with excellent progression. This was managed in his home with elevation of the leg and local wound care and wet-to- dry dressings done by home health. The legs were improving and then he developed a cellulitis of the left lower leg. Initially, oral antibiotics were tried, but this progressed and he required hospitalization at [facility] from 01/21 until 01/24/2019, with resolution of the cellulitis. He continued to receive local wound care. He was left very spent physically and was requiring assistance with all his ADLs. He was transferred to [facility] on 01/24/2019 for purpose of physical therapy, occupational therapy, wound care and continuation of treatment of his chronic problems in care of the trach. HOSPITAL COURSE: One of progressive improvement. By the time of his discharge on 02/26, he was able to walk from 100 to 300 feet with his rolling walker and standby assistance and was transferring independently. His venous insufficiency was managed with elevation of the legs. During the day, he stayed in a lounge chair with the feet elevated. At nighttime, he slept in bed. During this time, his legs did very well. The venous insufficiency was well controlled and he had only trace edema. His weight dropped from an admission weight of 277 to a discharge weight of 264. He had chronic stasis changes with the skin, but the skin had a chronic bluish discoloration from venous stasis. The edema was well controlled. His lacerations were initially cared for with application of Silvadene cream covered with an Adaptic and a Mepilex. During his hospitalization, the wound is markedly improved. They remained clean with no signs of infection. The wounds became shorter and more narrow and each of the 2 wounds just had very small areas that were still requiring dressing. Overall, these improved with expectation, these will completely heal. His cellulitis that he had on admission to [facility] had resolved. The patient's cellulitis of the left lower leg completely resolved. He completed all these antibiotics and there were no signs of any recurrence. His COPD remained stable. His trach remained very clean and required the inner cannula to be cleaned twice today and as needed. By 02/26/2019, his condition was such, it is felt like it could be managed at home. The patient will have home health to assist with wound care daily and he has also help in the home from his and family and a lady they have hired to assist with his care. The family feels like they will be able to manage him fine. DISPOSITION: DIET: Regular diet. No added salt. ACTIVITIES: Ambulate with the use of a walker as he tolerates. Home health will continue with physical therapy in the home. When the patient is sitting, he should be reclined with his feet elevated and he should sleep in his bed at nighttime. His trach care will be to cleanse with saline the inner cannula twice today and as needed and he will follow up with his charcoal unloader for change out of the tracheostomy, which is done about every 6 weeks. WOUND CARE: The wound on the left lower leg will be cleansed daily. The wound will be cleansed with saline, blotted dry. Apply Silvadene cream, cover with Adaptic and a Mepilex. O2 by his trach collar at nighttime and p.r.n. at 5 to 6 L. MEDICATIONS: 1. Acetaminophen 325 mg 2 every 4 hours as needed. 2. DuoNeb by nebulizer q.i.d. and every 4 hours as needed. 3. Eliquis 5 mg b.i.d. 4. Aspirin 81 mg daily. 5. Atorvastatin 10 mg daily. 6. Diltiazem mg daily. 7. Mucinex 1200 mg b.i.d. 8. Levothyroxine 25 mcg daily. 9. Lorazepam 1 mg b.i.d. as needed. 10. Milk of magnesia 30 mL daily p.r.n. 11. Singulair 10 mg daily. 12. Renuka lotion with Kenalog 15 ounces/200 mg apply daily to the legs p.r.n. itching. 13. Moisturizer applied to the legs daily. 14. MiraLAX 17 g 8 ounces of water daily. 15. Rythmol 225 mg t.i.d. 16. Spironolactone 25 mg daily. FOLLOWUP: The patient will need to see his pulmonary doctor routinely for change out of his trach. We will recheck the patient in my office in 2 weeks. Prior to that visit, he will need a CBC and basic metabolic panel. CODE STATUS: Full code. Home Health will see the patient and provide in-home physical therapy and wound care as outlined above. Job ID: [id number] [facility]
== END 2019-02-26 13:18 | disposition home or self-care (01) | DRG 949 ==
LOC: MADMS 18:25
PROVIDERS: ADMIT Family Medicine; ATTEND Family Medicine
DX: S81.812D Laceration without foreign body, left lower leg, subsequent encounter (principal); L03.116 Cellulitis of left lower limb; J96.11 Chronic respiratory failure with hypoxia; J96.12 Chronic respiratory failure with hypercapnia; J44.9 Chronic obstructive pulmonary disease, unspecified; E78.00 Pure hypercholesterolemia, unspecified; E03.9 Hypothyroidism, unspecified; N18.9 Chronic kidney disease, unspecified; R53.1 Weakness; R26.9 Unspecified abnormalities of gait and mobility; M19.90 Unspecified osteoarthritis, unspecified site; G47.33 Obstructive sleep apnea (adult) (pediatric); I48.0 Paroxysmal atrial fibrillation; I25.10 Atherosclerotic heart disease of native coronary artery without angina pectoris; E66.01 Morbid (severe) obesity due to excess calories; I12.9 Hypertensive chronic kidney disease with stage 1 through stage 4 chronic kidney disease, or unspecified chronic kidney disease; F41.9 Anxiety disorder, unspecified; I87.2 Venous insufficiency (chronic) (peripheral); Z79.82 Long term (current) use of aspirin; Z79.01 Long term (current) use of anticoagulants; Z88.8 Allergy status to other drugs, medicaments and biological substances; Z93.0 Tracheostomy status; Z68.35 Body mass index [BMI] 35.0-35.9, adult; W01.198D Fall on same level from slipping, tripping and stumbling with subsequent striking against other object, subsequent encounter
CPT/HCPCS: 36416; 80048; 85025; 94640; 97602; J3301; J7620

== ENCOUNTER 2019-03-25 09:43 | Emergency (ER) | payer MEDICARE, BC ==
[2019-03-25 11:01] LABS: #Eosinphils 0.1 thou/uL (0.0-0.7); #Lymphocytes 1.5 thou/uL (1.20-3.40); #Monocytes 0.5 thou/uL (0.11-0.59); %Basophils 0.5 % (0.0-1.0); %Eosinophils 1.9 % (0.0-10.0); %Lymphocytes 29.2 % (21.0-51.0); %Neutrophils 58.4 % (42.0-75.0); Hemoglobin 11.9 g/dL (14.0-18.0); Mean Corpuscular HGB CONC 31.9 g/dL (32.0-36.0); Mean Corpuscular Hemoglobin 27.6 pg (27.0-31.0); Mean Corpuscular Volume 86.7 fL (78.0-98.0); Mean Platelet Volume 6.4 fL (7.4-10.4); Platelet Count 191 thou/uL (130-400); RBC Distribution Width 14.8 % (11.5-14.5); Red Blood Cell (RBC) Count 4.31 mill/uL (4.70-6.10); White Blood Cell (WBC) Count 5.1 thou/uL (4.8-10.8)
[2019-03-25 11:11] LABS: INR-International Normal Ratio 1.1; Prothrombin Time 14.1 SEC (12.0-14.7)
[2019-03-25 11:21] LABS: ALT (SGPT) 7 U/L (8-55); AST (SGOT) 13 U/L (5-34); Albumin 3.6 g/dL (3.4-4.8); Alkaline Phosphatase 112 U/L (40-150); Anion Gap 9 mmol/L (10-20); BUN (Urea Nitrogen) 17 mg/dL (8.4-25.7); Bilirubin, Total 0.6 mg/dL (0.2-1.2); Calc. Creatinine Clearance 0 mL/min (70-130); Calcium 9.4 mg/dL (7.8-10.44); Carbon Dioxide 36 mmol/L (23-31); Chloride 92 mmol/L (98-107); Estimated GFR-MDRD 61; Glucose 97 mg/dL (83-110); Potassium 4.2 mmol/L (3.5-5.1); Protein, Total 6.6 g/dL (5.8-8.1); Sodium 133 mmol/L (136-145)
== END 2019-03-25 11:55 | disposition home or self-care (01) ==
LOC: MADERS 09:43
DX: K62.5 Hemorrhage of anus and rectum (principal); I48.91 Unspecified atrial fibrillation; J44.9 Chronic obstructive pulmonary disease, unspecified; I10 Essential (primary) hypertension; Z79.899 Other long term (current) drug therapy; Z79.82 Long term (current) use of aspirin
CPT/HCPCS: 36415; 80053; 82274; 85025; 85610; 99283

== ENCOUNTER 2019-05-01 17:16 | Emergency (ER) | payer MEDICARE, BC ==
[2019-05-01] MEDS ORDERED: Bacitracin Zinc 1 Packet ONE (18:12)
[2019-05-01] MEDS ORDERED: Cephalexin 500 MG CAP ONE (18:23)
== END 2019-05-01 18:05 | disposition home or self-care (01) ==
LOC: MADERS 17:16
DX: L03.116 Cellulitis of left lower limb (principal); I10 Essential (primary) hypertension; J44.9 Chronic obstructive pulmonary disease, unspecified; I48.91 Unspecified atrial fibrillation; Z79.82 Long term (current) use of aspirin; Z79.899 Other long term (current) drug therapy; Z79.01 Long term (current) use of anticoagulants
CPT/HCPCS: 99283

== ENCOUNTER 2019-06-28 08:40 | Emergency (ER) | payer MEDICARE, BC ==
[2019-06-28] MEDS ORDERED: Water For Inject, Bacteriostat 30 ML ONE (09:16)
[2019-06-28] MEDS ORDERED: Furosemide 40 MG/4 ML VIAL ONE (09:16)
[2019-06-28] MEDS ORDERED: methylPREDNISolone Sod Succ/PF 125 MG/2 ML VIAL ONE (09:16)
[2019-06-28] MEDS ORDERED: cefTRIAXone\\ROCEPHIN 1 GM VIAL ONE (09:16)
[2019-06-28 09:36] LABS: #Basophils 0.1 thou/uL (0.0-0.2); #Eosinphils 0.2 thou/uL (0.0-0.7); #Lymphocytes 1.4 thou/uL (1.20-3.40); #Monocytes 0.9 thou/uL (0.11-0.59); #Neutrophils 3.9 thou/uL (1.40-6.50); %Basophils 0.9 % (0.0-1.0); %Eosinophils 2.5 % (0.0-10.0); %Lymphocytes 21.6 % (21.0-51.0); %Neutrophils 61.1 % (42.0-75.0); Hemoglobin 12.7 g/dL (14.0-18.0); Mean Corpuscular HGB CONC 32.4 g/dL (32.0-36.0); Mean Corpuscular Hemoglobin 26.8 pg (27.0-31.0); Mean Corpuscular Volume 82.8 fL (78.0-98.0); Mean Platelet Volume 7.5 fL (7.4-10.4); Platelet Count 192 thou/uL (130-400); RBC Distribution Width 14.7 % (11.5-14.5); Red Blood Cell (RBC) Count 4.73 mill/uL (4.70-6.10); White Blood Cell (WBC) Count 6.4 thou/uL (4.8-10.8)
[2019-06-28 09:50] LABS: ALT (SGPT) 8 U/L (8-55); AST (SGOT) 14 U/L (5-34); Albumin 3.6 g/dL (3.4-4.8); Alkaline Phosphatase 104 U/L (40-150); Anion Gap 14 mmol/L (10-20); BUN (Urea Nitrogen) 17 mg/dL (8.4-25.7); Bilirubin, Total 0.5 mg/dL (0.2-1.2); CK (CPK) 19 U/L (30-200); Calc. Creatinine Clearance 0 mL/min (70-130); Calcium 9.1 mg/dL (7.8-10.44); Carbon Dioxide 30 mmol/L (23-31); Chloride 95 mmol/L (98-107); Estimated GFR-MDRD 62; Globulin 2.8 g/dL (2.4-3.5); Glucose 95 mg/dL (83-110); Potassium 4.1 mmol/L (3.5-5.1); Protein, Total 6.4 g/dL (5.8-8.1); Sodium 135 mmol/L (136-145)
--- NOTE | 2019-06-28 10:26 | RAD ---
EXAM: Single view of the chest HISTORY: Cough COMPARISON: 01/21/2019 FINDINGS: Single view of the chest shows a normal sized cardiomediastinal silhouette. The tracheosto my is unchanged in position. There is no evidence of consolidation, mass, or pleural effusion. The bones are unremarkable. IMPRESSION: No evidence of acute cardiopulmonary disease
== END 2019-06-28 11:38 | disposition short-term general hospital (02) ==
LOC: MADERS 08:40
DX: J44.1 Chronic obstructive pulmonary disease with (acute) exacerbation (principal); R06.03 Acute respiratory distress; L03.116 Cellulitis of left lower limb; I48.91 Unspecified atrial fibrillation; I10 Essential (primary) hypertension; Z79.899 Other long term (current) drug therapy; Z79.82 Long term (current) use of aspirin
CPT/HCPCS: 71045; 80053; 82550; 83880; 84484; 85025; 85379; 93005; 94760; 96374; 96375; J0696; J1940; J2930

== ENCOUNTER 2019-10-06 09:44 | Emergency (ER) | payer MEDICARE, BC ==
[2019-10-06 10:23] LABS: ALT (SGPT) 14 U/L (8-55); AST (SGOT) 18 U/L (5-34); Albumin 4.1 g/dL (3.4-4.8); Alkaline Phosphatase 122 U/L (40-110); Anion Gap 14 mmol/L (10-20); BUN (Urea Nitrogen) 18 mg/dL (8.4-25.7); Bilirubin, Total 0.7 mg/dL (0.2-1.2); Calc. Creatinine Clearance 0 mL/min (70-130); Calcium 9.8 mg/dL (7.8-10.44); Carbon Dioxide 31 mmol/L (23-31); Chloride 98 mmol/L (98-107); Estimated GFR-MDRD 61; Glucose 96 mg/dL (83-110); Potassium 4.4 mmol/L (3.5-5.1); Protein, Total 7.1 g/dL (5.8-8.1); Sodium 139 mmol/L (136-145)
--- NOTE | 2019-10-06 10:27 | RAD ---
RADIOGRAPH CHEST 1 VIEW: DATE: 10/06/2019 HISTORY: 84-year-old male with cough FINDINGS: The thoracic aorta is tortuous and ectatic. There is no evidence of airspace density, cardiomegaly, p ulmonary edema, or pneumothorax. The lateral costophrenic angles are not effaced. There is a tracheostomy tube. IMPRESSION: 1) No acute pulmonary findings. 2) ectasia of thoracic aorta. 3) tracheostomy tube.
[2019-10-06 10:35] LABS: Hemoglobin 13.9 g/dL (14.0-18.0); Red Blood Cell (RBC) Count 4.91 mill/uL (4.70-6.10); White Blood Cell (WBC) Count 10.9 thou/uL (4.8-10.8)
[2019-10-06 10:36] LABS: #Basophils 0.1 thou/uL (0.0-0.2); #Eosinphils 0.1 thou/uL (0.0-0.7); #Lymphocytes 1.4 thou/uL (1.20-3.40); #Monocytes 0.7 thou/uL (0.11-0.59); #Neutrophils 8.6 thou/uL (1.40-6.50); %Basophils 0.5 % (0.0-1.0); %Lymphocytes 12.9 % (21.0-51.0); %Monocytes 6.8 % (0.0-10.0); %Neutrophils 78.8 % (42.0-75.0); Mean Corpuscular HGB CONC 30.1 g/dL (32.0-36.0); Mean Corpuscular Hemoglobin 28.2 pg (27.0-31.0); Mean Corpuscular Volume 93.9 fL (78.0-98.0); Mean Platelet Volume 8.9 fL (7.4-10.4); Platelet Count 190 thou/uL (130-400)
== END 2019-10-06 11:10 | disposition home or self-care (01) ==
LOC: MADERS 09:44
DX: J06.9 Acute upper respiratory infection, unspecified (principal); I25.10 Atherosclerotic heart disease of native coronary artery without angina pectoris; I12.9 Hypertensive chronic kidney disease with stage 1 through stage 4 chronic kidney disease, or unspecified chronic kidney disease; E11.9 Type 2 diabetes mellitus without complications; E78.5 Hyperlipidemia, unspecified; E78.00 Pure hypercholesterolemia, unspecified; I48.91 Unspecified atrial fibrillation; J44.9 Chronic obstructive pulmonary disease, unspecified; G47.00 Insomnia, unspecified; N18.9 Chronic kidney disease, unspecified; F41.9 Anxiety disorder, unspecified; F32.9 Major depressive disorder, single episode, unspecified; Z79.82 Long term (current) use of aspirin; Z79.01 Long term (current) use of anticoagulants; Z79.51 Long term (current) use of inhaled steroids; Z79.899 Other long term (current) drug therapy; Z95.5 Presence of coronary angioplasty implant and graft
CPT/HCPCS: 71045; 80053; 83880; 84484; 85025; 87804; 93005; J7620

== ENCOUNTER 2019-12-17 11:12 | Outpatient (CLI) | payer MEDICARE, BC ==
[2019-12-17 11:57] LABS: #Eosinphils 0.2 thou/uL (0.0-0.7); #Lymphocytes 1.7 thou/uL (1.20-3.40); #Monocytes 0.4 thou/uL (0.11-0.59); #Neutrophils 2.2 thou/uL (1.40-6.50); %Eosinophils 3.5 % (0.0-10.0); %Lymphocytes 38.5 % (21.0-51.0); %Monocytes 8.9 % (0.0-10.0); %Neutrophils 48.1 % (42.0-75.0); Hemoglobin 13.1 g/dL (14.0-18.0); Mean Corpuscular HGB CONC 30.5 g/dL (32.0-36.0); Mean Corpuscular Hemoglobin 28.1 pg (27.0-31.0); Mean Corpuscular Volume 92.2 fL (78.0-98.0); Mean Platelet Volume 9.4 fL (7.4-10.4); Platelet Count 156 thou/uL (130-400); RBC Distribution Width 13.1 % (11.5-14.5); Red Blood Cell (RBC) Count 4.66 mill/uL (4.70-6.10); White Blood Cell (WBC) Count 4.5 thou/uL (4.8-10.8)
[2019-12-17 12:10] LABS: ALT (SGPT) 13 U/L (8-55); AST (SGOT) 17 U/L (5-34); Albumin 3.7 g/dL (3.4-4.8); Alkaline Phosphatase 109 U/L (40-110); Anion Gap 13 mmol/L (10-20); BUN (Urea Nitrogen) 22 mg/dL (8.4-25.7); Bilirubin, Total 0.5 mg/dL (0.2-1.2); Calc. Creatinine Clearance 0 mL/min (70-130); Calcium 9.1 mg/dL (7.8-10.44); Carbon Dioxide 30 mmol/L (23-31); Chloride 101 mmol/L (98-107); Estimated GFR-MDRD 54; Globulin 2.3 g/dL (2.4-3.5); Glucose 85 mg/dL (83-110); Potassium 4.1 mmol/L (3.5-5.1); Sodium 140 mmol/L (136-145)
== END 2019-12-17 11:13 | disposition home or self-care (01) ==
LOC: MADLABBHPM 11:12
PROVIDERS: ATTEND Family Medicine
DX: E11.51 Type 2 diabetes mellitus with diabetic peripheral angiopathy without gangrene (principal); I25.10 Atherosclerotic heart disease of native coronary artery without angina pectoris; J96.11 Chronic respiratory failure with hypoxia; I13.0 Hypertensive heart and chronic kidney disease with heart failure and stage 1 through stage 4 chronic kidney disease, or unspecified chronic kidney disease; I50.33 Acute on chronic diastolic (congestive) heart failure; E11.22 Type 2 diabetes mellitus with diabetic chronic kidney disease; N18.9 Chronic kidney disease, unspecified
CPT/HCPCS: 80053; 85025

== ENCOUNTER 2021-07-13 06:58 | Emergency (ER) | payer BC, MEDICARE ==
[~2021-07-13 06:58] MED LIST changes: +Sodium Chloride 0.9% 100 ML BAG ONE; -Sodium Chloride Irrig Solution 250 ML BOT ONE
[2021-07-13] MEDS ORDERED: methylPREDNISolone Sod Succ/PF 125 MG/2 ML VIAL ONE (07:31)
[2021-07-13] MEDS ORDERED: Sodium Chloride 0.9% 100 ML ONE (07:31)
[2021-07-13] MEDS ORDERED: Cefepime 2 GM VIAL ONE ×2 (07:31→22:50)
[2021-07-13 07:36] LABS: #Lymphocytes 1.2 thou/uL (1.20-3.40); #Monocytes 0.5 thou/uL (0.11-0.59); #Neutrophils 2.4 thou/uL (1.40-6.50); %Basophils 0.6 % (0.0-1.0); %Lymphocytes 28.8 % (21.0-51.0); %Monocytes 11.9 % (0.0-10.0); %Neutrophils 57.6 % (42.0-75.0); Hemoglobin 13.3 g/dL (14.0-18.0); Mean Corpuscular HGB CONC 30.7 g/dL (32.0-36.0); Mean Corpuscular Hemoglobin 27.3 pg (27.0-31.0); Mean Corpuscular Volume 89.2 fL (78.0-98.0); Mean Platelet Volume 8.7 fL (7.4-10.4); Platelet Count 148 thou/uL (130-400); RBC Distribution Width 13.6 % (11.5-14.5); Red Blood Cell (RBC) Count 4.85 mill/uL (4.70-6.10); White Blood Cell (WBC) Count 4.1 thou/uL (4.8-10.8)
[2021-07-13 07:50] LABS: CRP (Inflammatory) 0.71 mg/dL (= or < 0.5)
[2021-07-13 07:52] LABS: ALT (SGPT) 16 U/L (8-55); AST (SGOT) 22 U/L (5-34); Albumin 3.5 g/dL (3.4-4.8); Alkaline Phosphatase 147 U/L (40-110); Anion Gap 17 mmol/L (10-20); BUN (Urea Nitrogen) 26 mg/dL (8.4-25.7); Bilirubin, Total 0.6 mg/dL (0.2-1.2); Calc. Creatinine Clearance 0 mL/min (70-130); Calcium 9.2 mg/dL (7.8-10.44); Carbon Dioxide 36 mmol/L (23-31); Glucose 102 mg/dL (83-110); Protein, Total 6.5 g/dL (5.8-8.1)
[2021-07-13 07:59] LABS: Chloride 88 mmol/L (98-107); Potassium 3.1 mmol/L (3.5-5.1); Sodium 137 mmol/L (136-145)
[2021-07-13] MEDS ORDERED: Sodium Chloride 0.9% 500 ML ONE (08:17)
[2021-07-13] MEDS ORDERED: Lactated Ringer's 1,000 ML ONE (09:04)
[2021-07-13] MEDS ORDERED: Albuterol Sulfate 2.5 mg/0.5 ml Neb ONE ×3 (09:04→18:38)
[2021-07-13] MEDS ORDERED: Potassium Chloride 20 MEQ TAB ONE (09:04)
[2021-07-13 09:10] LABS: Magnesium 2.1 mg/dL (1.6-2.6)
[2021-07-13 09:23] LABS: SARS-CoV-2 NAA Rapid Test DETECTED (NotDetected)
== END 2021-07-13 23:08 | disposition short-term general hospital (02) ==
LOC: MADERS 06:58
DX: U07.1 COVID-19 (principal); J44.1 Chronic obstructive pulmonary disease with (acute) exacerbation; E87.6 Hypokalemia; E11.9 Type 2 diabetes mellitus without complications; I48.91 Unspecified atrial fibrillation; E03.9 Hypothyroidism, unspecified; E78.5 Hyperlipidemia, unspecified; E78.00 Pure hypercholesterolemia, unspecified; I13.0 Hypertensive heart and chronic kidney disease with heart failure and stage 1 through stage 4 chronic kidney disease, or unspecified chronic kidney disease; I50.9 Heart failure, unspecified; N18.9 Chronic kidney disease, unspecified
CPT/HCPCS: 0240U; 71045; 80053; 82550; 83735; 83880; 84484; 85025; 85379; 86140; 87040; 93005; 94760; 96365; 96366; 96367; 96368; 96375; 96376; J0692; J1956; J2930; J3370; J3490; J7030; J7120; J7611; J7620

== ENCOUNTER 2021-08-01 15:51 | Inpatient (IN) | payer MEDICARE ==
[2021-08-01] MEDS ORDERED: Ketoconazole 2% Cream 15 gm Tube TOP PRN (18:22)
[2021-08-01] MEDS ORDERED: Furosemide 40 MG TAB PO SCH ×2 (18:30→19:30)
[2021-08-01] MEDS ORDERED: Betamethasone 0.1% Cream 15 GM TUBE TOP PRN (19:30)
[2021-08-01] MEDS ORDERED: Pancrelipase DR 12,000 1 CAP FS PRN (19:30)
[2021-08-01] MEDS ORDERED: Sodium Bicarbonate Tab 325 MG TAB PER TUBE PRN (19:30)
[2021-08-01] MEDS: Propafenone HCl 150 MG TAB PER TUBE SCH (21:33)
[2021-08-01] MEDS: predniSONE 10 MG TAB PER TUBE SCH (21:37)
[2021-08-01] MEDS: Apixaban 5 MG TAB PER TUBE SCH (21:38)
[2021-08-01] MEDS: guaiFENesin ER 600 MG TAB PO SCH (21:38)
[2021-08-02] MEDS: guaiFENesin ER 600 MG TAB PO SCH ×4 (03:05→20:34)
[2021-08-02] MEDS: Propafenone HCl 150 MG TAB PER TUBE SCH ×3 (05:24→21:57)
[2021-08-02] MEDS: Levothyroxine Sodium 25 MCG TAB PER TUBE SCH (05:25)
[2021-08-02 05:27] LABS: #Lymphocytes 0.4 thou/uL (1.20-3.40); #Monocytes 0.4 thou/uL (0.11-0.59); #Neutrophils 9.4 thou/uL (1.40-6.50); %Basophils 0.1 % (0.0-1.0); %Lymphocytes 4.1 % (21.0-51.0); %Monocytes 3.8 % (0.0-10.0); %Neutrophils 91.9 % (42.0-75.0); Hemoglobin 12.6 g/dL (14.0-18.0); Mean Corpuscular Hemoglobin 28.4 pg (27.0-31.0); Mean Corpuscular Volume 88.7 fL (78.0-98.0); Mean Platelet Volume 7.2 fL (7.4-10.4); Platelet Count 163 thou/uL (130-400); RBC Distribution Width 14.6 % (11.5-14.5); Red Blood Cell (RBC) Count 4.45 mill/uL (4.70-6.10); White Blood Cell (WBC) Count 10.2 thou/uL (4.8-10.8)
[2021-08-02 05:45] LABS: ALT (SGPT) 14 U/L (8-55); AST (SGOT) 11 U/L (5-34); Albumin 2.6 g/dL (3.4-4.8); Alkaline Phosphatase 62 U/L (40-110); Anion Gap 10 mmol/L (10-20); BUN (Urea Nitrogen) 20 mg/dL (8.4-25.7); Bilirubin, Total 0.6 mg/dL (0.2-1.2); Calc. Creatinine Clearance 114 mL/min (70-130); Calcium 8.7 mg/dL (7.8-10.44); Carbon Dioxide 30 mmol/L (23-31); Chloride 102 mmol/L (98-107); Globulin 2.2 g/dL (2.4-3.5); Glucose 119 mg/dL (83-110); Potassium 4.7 mmol/L (3.5-5.1); Protein, Total 4.8 g/dL (5.8-8.1); Sodium 137 mmol/L (136-145)
[2021-08-02 07:34] LABS: Bilirubin Negative (Negative); Blood, Urine Trace (Negative); Clarity Clear (Clear); Glucose, Urine (Dipstick) Negative (Negative); Ketone, Urine Negative (Negative); Leukocyte Moderate (Negative); Nitrite Negative (Negative); Protein, Urine (Dipstick) Negative (Neg-Trace); Specific Gravity, Urine 1.025 (1.005-1.030); Urobilinogen > or = 8.0 mg/dL (Less than 2)
[2021-08-02 07:42] LABS: Bacteria/HPF 1+ HPF (None Seen); RBC/HPF 0-3 HPF (0-3)
[2021-08-02] MEDS: Montelukast Sodium 10 mg Tablet PER TUBE SCH (09:03)
[2021-08-02] MEDS: Apixaban 5 MG TAB PER TUBE SCH ×2 (09:03→20:34)
[2021-08-02] MEDS: Pantoprazole 40 MG GRANULES PACKET PER TUBE SCH (09:03)
[2021-08-02] MEDS: Saccharomyces boulardii 250 MG CAP PER TUBE SCH (09:03)
[2021-08-02] MEDS: Furosemide 40 MG TAB PO SCH (16:57)
[2021-08-02] MEDS: predniSONE 10 MG TAB PER TUBE SCH (20:33)
[2021-08-03] MEDS: guaiFENesin ER 600 MG TAB PO SCH ×4 (03:00→21:09)
[2021-08-03] MEDS: Acetaminophen 325 MG TAB PO PRN (06:09)
[2021-08-03] MEDS: Propafenone HCl 150 MG TAB PER TUBE SCH ×3 (06:10→21:24)
[2021-08-03] MEDS: Levothyroxine Sodium 25 MCG TAB PER TUBE SCH (06:10)
[2021-08-03] MEDS: Furosemide 40 MG TAB PO SCH (09:10)
[2021-08-03] MEDS: Montelukast Sodium 10 mg Tablet PER TUBE SCH (09:10)
[2021-08-03] MEDS: Saccharomyces boulardii 250 MG CAP PER TUBE SCH (09:11)
[2021-08-03] MEDS: Apixaban 5 MG TAB PER TUBE SCH ×2 (09:11→21:09)
[2021-08-03] MEDS: Pantoprazole 40 MG GRANULES PACKET PER TUBE SCH (09:11)
[2021-08-03] MEDS: predniSONE 10 MG TAB PER TUBE SCH (21:09)
[2021-08-04] MEDS: guaiFENesin ER 600 MG TAB PO SCH ×4 (04:47→22:04)
[2021-08-04] MEDS: Propafenone HCl 150 MG TAB PER TUBE SCH ×3 (05:42→22:03)
[2021-08-04] MEDS: Levothyroxine Sodium 25 MCG TAB PER TUBE SCH (05:42)
[2021-08-04] MEDS: Acetaminophen 325 MG TAB PO PRN ×2 (05:56→22:02)
[2021-08-04] MEDS: Furosemide 40 MG TAB PO SCH (08:17)
[2021-08-04] MEDS: Apixaban 5 MG TAB PER TUBE SCH ×2 (08:18→22:03)
[2021-08-04] MEDS: Pantoprazole 40 MG GRANULES PACKET PER TUBE SCH (08:19)
[2021-08-04] MEDS: Montelukast Sodium 10 mg Tablet PER TUBE SCH (08:20)
[2021-08-04] MEDS: Saccharomyces boulardii 250 MG CAP PER TUBE SCH (08:20)
[2021-08-04] MEDS: predniSONE 10 MG TAB PER TUBE SCH (22:04)
[2021-08-05] MEDS: guaiFENesin ER 600 MG TAB PO SCH ×4 (02:33→20:53)
[2021-08-05] MEDS: Propafenone HCl 150 MG TAB PER TUBE SCH ×4 (05:35→22:00)
[2021-08-05] MEDS: Levothyroxine Sodium 25 MCG TAB PER TUBE SCH ×2 (05:35→05:38)
[2021-08-05] MEDS: Apixaban 5 MG TAB PER TUBE SCH ×2 (08:23→20:52)
[2021-08-05] MEDS: Pantoprazole 40 MG GRANULES PACKET PER TUBE SCH (08:23)
[2021-08-05] MEDS: Montelukast Sodium 10 mg Tablet PER TUBE SCH (08:23)
[2021-08-05] MEDS: Furosemide 40 MG TAB PO SCH (08:23)
[2021-08-05] MEDS: Saccharomyces boulardii 250 MG CAP PER TUBE SCH (08:24)
[2021-08-05] MEDS ORDERED: Emollient 15 oz bottle 450 ML, Triamcinolone Acetonide 200 MG TOP PRN (11:15)
[2021-08-05] MEDS ORDERED: Emollient 15 oz bottle 450 ML, Triamcinolone Acetonide 200 MG TOP SCH (11:15)
[2021-08-05] MEDS: predniSONE 10 MG TAB PER TUBE SCH (20:54)
[2021-08-05] MEDS ORDERED: guaiFENesin ER 600 MG TAB ONE (23:38)
[2021-08-06] MEDS: guaiFENesin ER 600 MG TAB PO SCH ×4 (03:00→21:55)
[2021-08-06] MEDS: Polyethylene Glycol 3350 17 GM Packet PER TUBE SCH (09:35)
[2021-08-06] MEDS: Apixaban 5 MG TAB PER TUBE SCH ×2 (09:36→21:54)
[2021-08-06] MEDS: Furosemide 40 MG TAB PO SCH (09:36)
[2021-08-06] MEDS: Pantoprazole 40 MG GRANULES PACKET PER TUBE SCH (09:36)
[2021-08-06] MEDS: Montelukast Sodium 10 mg Tablet PER TUBE SCH (09:36)
[2021-08-06] MEDS: Saccharomyces boulardii 250 MG CAP PER TUBE SCH (09:37)
[2021-08-06] MEDS: Emollient 15 oz bottle 450 ML, Triamcinolone Acetonide 200 MG TOP SCH (10:00)
[2021-08-06] MEDS: Propafenone HCl 150 MG TAB PER TUBE SCH ×2 (13:58→21:52)
[2021-08-06] MEDS: predniSONE 10 MG TAB PER TUBE SCH (21:53)
[2021-08-07] MEDS: guaiFENesin ER 600 MG TAB PO SCH ×4 (03:31→20:55)
[2021-08-07] MEDS: Levothyroxine Sodium 25 MCG TAB PER TUBE SCH (05:38)
[2021-08-07] MEDS: Propafenone HCl 150 MG TAB PER TUBE SCH ×3 (05:39→20:57)
[2021-08-07] MEDS: Polyethylene Glycol 3350 17 GM Packet PER TUBE SCH (10:13)
[2021-08-07] MEDS: Furosemide 40 MG TAB PO SCH (10:14)
[2021-08-07] MEDS: Montelukast Sodium 10 mg Tablet PER TUBE SCH (10:14)
[2021-08-07] MEDS: Saccharomyces boulardii 250 MG CAP PER TUBE SCH (10:14)
[2021-08-07] MEDS: Apixaban 5 MG TAB PER TUBE SCH ×2 (10:14→20:55)
[2021-08-07] MEDS: Pantoprazole 40 MG GRANULES PACKET PER TUBE SCH (10:14)
[2021-08-07] MEDS: Emollient 15 oz bottle 450 ML, Triamcinolone Acetonide 200 MG TOP SCH (10:20)
[2021-08-07] MEDS: predniSONE 10 MG TAB PER TUBE SCH (20:55)
[2021-08-07] MEDS: Acetaminophen 325 MG TAB PO PRN (23:06)
[2021-08-08] MEDS: guaiFENesin ER 600 MG TAB PO SCH ×3 (03:44→14:37)
[2021-08-08] MEDS: Propafenone HCl 150 MG TAB PER TUBE SCH ×3 (05:28→21:19)
[2021-08-08] MEDS: Levothyroxine Sodium 25 MCG TAB PER TUBE SCH (05:28)
[2021-08-08 05:59] LABS: Hemoglobin 13.7 g/dL (14.0-18.0); Platelet Count 121 thou/uL (130-400)
[2021-08-08 06:05] LABS: Calc. Creatinine Clearance 109 mL/min (70-130)
[2021-08-08] MEDS: Acetaminophen 325 MG TAB PO PRN ×2 (08:59→21:20)
[2021-08-08] MEDS: Pantoprazole 40 MG GRANULES PACKET PER TUBE SCH (09:00)
[2021-08-08] MEDS: Saccharomyces boulardii 250 MG CAP PER TUBE SCH (09:00)
[2021-08-08] MEDS: Apixaban 5 MG TAB PER TUBE SCH ×2 (09:00→21:17)
[2021-08-08] MEDS: Montelukast Sodium 10 mg Tablet PER TUBE SCH (09:00)
[2021-08-08] MEDS: Furosemide 40 MG TAB PO SCH (09:01)
[2021-08-08] MEDS: Polyethylene Glycol 3350 17 GM Packet PER TUBE SCH (09:01)
[2021-08-08] MEDS: Emollient 15 oz bottle 450 ML, Triamcinolone Acetonide 200 MG TOP SCH (09:01)
[2021-08-08] MEDS: GUAIFENESIN SF SOLN 200 MG/10 ML UDCUP PO SCH (21:17)
[2021-08-08] MEDS: predniSONE 10 MG TAB PER TUBE SCH (21:18)
[2021-08-09] MEDS: GUAIFENESIN SF SOLN 200 MG/10 ML UDCUP PO SCH ×4 (02:01→20:23)
[2021-08-09] MEDS: Levothyroxine Sodium 25 MCG TAB PER TUBE SCH (05:45)
[2021-08-09] MEDS: Propafenone HCl 150 MG TAB PER TUBE SCH ×3 (05:46→20:23)
[2021-08-09] MEDS: Furosemide 40 MG TAB PO SCH (08:46)
[2021-08-09] MEDS: Saccharomyces boulardii 250 MG CAP PER TUBE SCH (08:46)
[2021-08-09] MEDS: Apixaban 5 MG TAB PER TUBE SCH ×2 (08:46→20:22)
[2021-08-09] MEDS: Montelukast Sodium 10 mg Tablet PER TUBE SCH (08:46)
[2021-08-09] MEDS: Pantoprazole 40 MG GRANULES PACKET PER TUBE SCH (08:46)
[2021-08-09] MEDS: Emollient 15 oz bottle 450 ML, Triamcinolone Acetonide 200 MG TOP SCH (08:47)
[2021-08-09] MEDS: Polyethylene Glycol 3350 17 GM Packet PER TUBE SCH (08:47)
[2021-08-09] MEDS: predniSONE 10 MG TAB PER TUBE SCH (20:23)
[2021-08-09] MEDS: Acetaminophen 325 MG TAB PO PRN (20:24)
[2021-08-10] MEDS: GUAIFENESIN SF SOLN 200 MG/10 ML UDCUP PO SCH ×4 (03:03→20:40)
[2021-08-10] MEDS: Levothyroxine Sodium 25 MCG TAB PER TUBE SCH (05:14)
[2021-08-10] MEDS: Propafenone HCl 150 MG TAB PER TUBE SCH ×3 (05:14→21:15)
[2021-08-10] MEDS: Furosemide 40 MG TAB PO SCH (08:39)
[2021-08-10] MEDS: Saccharomyces boulardii 250 MG CAP PER TUBE SCH (08:39)
[2021-08-10] MEDS: Montelukast Sodium 10 mg Tablet PER TUBE SCH (08:39)
[2021-08-10] MEDS: Apixaban 5 MG TAB PER TUBE SCH ×2 (08:39→20:39)
[2021-08-10] MEDS: Pantoprazole 40 MG GRANULES PACKET PER TUBE SCH (08:39)
[2021-08-10] MEDS: Polyethylene Glycol 3350 17 GM Packet PER TUBE SCH (09:00)
[2021-08-10] MEDS: Emollient 15 oz bottle 450 ML, Triamcinolone Acetonide 200 MG TOP SCH (09:00)
[2021-08-10] MEDS: predniSONE 10 MG TAB PER TUBE SCH (20:41)
[2021-08-10] MEDS: Acetaminophen 325 MG TAB PO PRN (20:43)
[2021-08-11] MEDS: GUAIFENESIN SF SOLN 200 MG/10 ML UDCUP PO SCH ×4 (03:16→21:28)
[2021-08-11] MEDS: Acetaminophen 325 MG TAB PO PRN ×2 (03:39→21:33)
[2021-08-11] MEDS: Propafenone HCl 150 MG TAB PER TUBE SCH ×3 (05:18→21:32)
[2021-08-11] MEDS: Levothyroxine Sodium 25 MCG TAB PER TUBE SCH (05:18)
[2021-08-11] MEDS: Polyethylene Glycol 3350 17 GM Packet PER TUBE SCH (09:31)
[2021-08-11] MEDS: Montelukast Sodium 10 mg Tablet PER TUBE SCH (09:33)
[2021-08-11] MEDS: Saccharomyces boulardii 250 MG CAP PER TUBE SCH (09:33)
[2021-08-11] MEDS: Apixaban 5 MG TAB PER TUBE SCH ×2 (09:33→21:28)
[2021-08-11] MEDS: Pantoprazole 40 MG GRANULES PACKET PER TUBE SCH (09:33)
[2021-08-11] MEDS: Furosemide 40 MG TAB PO SCH (09:34)
[2021-08-11] MEDS: Emollient 15 oz bottle 450 ML, Triamcinolone Acetonide 200 MG TOP SCH (09:35)
[2021-08-11] MEDS: predniSONE 10 MG TAB PO SCH (21:33)
[2021-08-12] MEDS: GUAIFENESIN SF SOLN 200 MG/10 ML UDCUP PO SCH ×4 (02:44→20:58)
[2021-08-12] MEDS: Acetaminophen 325 MG TAB PO PRN (02:44)
[2021-08-12 05:46] LABS: Hemoglobin 13.2 g/dL (14.0-18.0); Platelet Count 127 thou/uL (130-400)
[2021-08-12] MEDS: Levothyroxine Sodium 25 MCG TAB PER TUBE SCH (06:00)
[2021-08-12] MEDS: Propafenone HCl 150 MG TAB PER TUBE SCH ×3 (06:01→20:56)
[2021-08-12] MEDS: Apixaban 5 MG TAB PER TUBE SCH ×2 (10:30→20:58)
[2021-08-12] MEDS: Polyethylene Glycol 3350 17 GM Packet PER TUBE SCH (12:21)
[2021-08-12] MEDS: Saccharomyces boulardii 250 MG CAP PER TUBE SCH (12:21)
[2021-08-12] MEDS: Pantoprazole 40 MG GRANULES PACKET PER TUBE SCH (12:21)
[2021-08-12] MEDS: Montelukast Sodium 10 mg Tablet PER TUBE SCH (12:21)
[2021-08-12] MEDS: Furosemide 40 MG TAB PO SCH (12:21)
[2021-08-12] MEDS: Emollient 15 oz bottle 450 ML, Triamcinolone Acetonide 200 MG TOP SCH (12:22)
[2021-08-12] MEDS: predniSONE 10 MG TAB PO SCH (20:58)
[2021-08-13] MEDS: GUAIFENESIN SF SOLN 200 MG/10 ML UDCUP PO SCH ×4 (03:13→21:21)
[2021-08-13] MEDS: Propafenone HCl 150 MG TAB PER TUBE SCH ×3 (06:02→21:21)
[2021-08-13] MEDS: Levothyroxine Sodium 25 MCG TAB PER TUBE SCH (06:03)
[2021-08-13] MEDS: Saccharomyces boulardii 250 MG CAP PER TUBE SCH (09:44)
[2021-08-13] MEDS: Pantoprazole 40 MG GRANULES PACKET PER TUBE SCH (09:44)
[2021-08-13] MEDS: Montelukast Sodium 10 mg Tablet PER TUBE SCH (09:44)
[2021-08-13] MEDS: Furosemide 40 MG TAB PO SCH (09:44)
[2021-08-13] MEDS: Apixaban 5 MG TAB PER TUBE SCH ×2 (09:44→21:21)
[2021-08-13] MEDS: Polyethylene Glycol 3350 17 GM Packet PER TUBE SCH (09:45)
[2021-08-13] MEDS: Emollient 15 oz bottle 450 ML, Triamcinolone Acetonide 200 MG TOP SCH (09:47)
[2021-08-13] MEDS ORDERED: Polyethylene Glycol 3350 17 GM Packet PER TUBE PRN (15:15)
[2021-08-13] MEDS: predniSONE 10 MG TAB PO SCH (21:21)
[2021-08-13] MEDS: Acetaminophen 325 MG TAB PO PRN (21:29)
[2021-08-14] MEDS: GUAIFENESIN SF SOLN 200 MG/10 ML UDCUP PO SCH ×4 (04:20→21:31)
[2021-08-14] MEDS: Propafenone HCl 150 MG TAB PER TUBE SCH ×3 (06:15→21:28)
[2021-08-14] MEDS: Levothyroxine Sodium 25 MCG TAB PER TUBE SCH (06:16)
[2021-08-14] MEDS: Apixaban 5 MG TAB PER TUBE SCH ×2 (09:59→21:30)
[2021-08-14] MEDS: Furosemide 40 MG TAB PO SCH (10:02)
[2021-08-14] MEDS: Pantoprazole 40 MG GRANULES PACKET PER TUBE SCH (10:03)
[2021-08-14] MEDS: Montelukast Sodium 10 mg Tablet PER TUBE SCH (10:03)
[2021-08-14] MEDS: Saccharomyces boulardii 250 MG CAP PER TUBE SCH (10:03)
[2021-08-14] MEDS: Emollient 15 oz bottle 450 ML, Triamcinolone Acetonide 200 MG TOP SCH (10:03)
[2021-08-15] MEDS: GUAIFENESIN SF SOLN 200 MG/10 ML UDCUP PO SCH ×4 (02:44→20:57)
[2021-08-15] MEDS: Propafenone HCl 150 MG TAB PER TUBE SCH ×3 (06:04→21:03)
[2021-08-15] MEDS: Levothyroxine Sodium 25 MCG TAB PER TUBE SCH (06:04)
[2021-08-15] MEDS: Saccharomyces boulardii 250 MG CAP PER TUBE SCH (08:06)
[2021-08-15] MEDS: Furosemide 40 MG TAB PO SCH (08:06)
[2021-08-15] MEDS: Montelukast Sodium 10 mg Tablet PER TUBE SCH (08:06)
[2021-08-15] MEDS: Pantoprazole 40 MG GRANULES PACKET PER TUBE SCH (08:06)
[2021-08-15] MEDS: Apixaban 5 MG TAB PER TUBE SCH ×2 (08:06→21:01)
[2021-08-15] MEDS: Emollient 15 oz bottle 450 ML, Triamcinolone Acetonide 200 MG TOP SCH (08:20)
[2021-08-15 10:37] VITALS: BMI 32.0
[2021-08-15] MEDS: Acetaminophen 325 MG TAB PO PRN (20:58)
[2021-08-15] MEDS: Diltiazem HCl SR 60 mg Capsule FS SCH (21:01)
[2021-08-15] MEDS: Polyethylene Glycol 3350 17 GM Packet PER TUBE SCH (21:01)
[2021-08-16] MEDS: GUAIFENESIN SF SOLN 200 MG/10 ML UDCUP PO SCH ×4 (02:59→21:01)
[2021-08-16] MEDS: Propafenone HCl 150 MG TAB PER TUBE SCH ×3 (05:45→21:01)
[2021-08-16] MEDS: Levothyroxine Sodium 25 MCG TAB PER TUBE SCH (05:46)
[2021-08-16] MEDS: Emollient 15 oz bottle 450 ML, Triamcinolone Acetonide 200 MG TOP SCH (08:21)
[2021-08-16] MEDS: Furosemide 40 MG TAB PO SCH (08:32)
[2021-08-16] MEDS: Apixaban 5 MG TAB PER TUBE SCH ×2 (08:32→21:01)
[2021-08-16] MEDS: Diltiazem HCl SR 60 mg Capsule FS SCH ×2 (08:32→21:01)
[2021-08-16] MEDS: Pantoprazole 40 MG GRANULES PACKET PER TUBE SCH (08:32)
[2021-08-16] MEDS: Montelukast Sodium 10 mg Tablet PER TUBE SCH (08:32)
[2021-08-16] MEDS: Saccharomyces boulardii 250 MG CAP PER TUBE SCH (08:34)
[2021-08-16] MEDS: Acetaminophen 325 MG TAB PO PRN ×2 (08:34→21:01)
[2021-08-16] MEDS: Polyethylene Glycol 3350 17 GM Packet PER TUBE SCH (21:02)
[2021-08-17] MEDS: GUAIFENESIN SF SOLN 200 MG/10 ML UDCUP PO SCH ×4 (04:03→21:15)
[2021-08-17 05:26] LABS: Hemoglobin 12.5 g/dL (14.0-18.0); Platelet Count 176 thou/uL (130-400)
[2021-08-17 05:46] LABS: Calc. Creatinine Clearance 110 mL/min (70-130)
[2021-08-17] MEDS: Propafenone HCl 150 MG TAB PER TUBE SCH ×3 (06:25→21:23)
[2021-08-17] MEDS: Levothyroxine Sodium 25 MCG TAB PER TUBE SCH (06:26)
[2021-08-17] MEDS: Montelukast Sodium 10 mg Tablet PER TUBE SCH (08:44)
[2021-08-17] MEDS: Diltiazem HCl SR 60 mg Capsule FS SCH ×2 (08:44→21:16)
[2021-08-17] MEDS: Saccharomyces boulardii 250 MG CAP PER TUBE SCH (08:44)
[2021-08-17] MEDS: Furosemide 40 MG TAB PO SCH (08:44)
[2021-08-17] MEDS: Apixaban 5 MG TAB PER TUBE SCH ×2 (08:44→21:15)
[2021-08-17] MEDS: Pantoprazole 40 MG GRANULES PACKET PER TUBE SCH (08:45)
[2021-08-17] MEDS: Acetaminophen 325 MG TAB PO PRN (08:45)
[2021-08-17] MEDS: Emollient 15 oz bottle 450 ML, Triamcinolone Acetonide 200 MG TOP SCH (10:16)
[2021-08-17] MEDS: Polyethylene Glycol 3350 17 GM Packet PER TUBE SCH (21:19)
[2021-08-18] MEDS: GUAIFENESIN SF SOLN 200 MG/10 ML UDCUP PO SCH ×4 (02:31→20:07)
[2021-08-18] MEDS: Propafenone HCl 150 MG TAB PER TUBE SCH ×3 (05:31→21:42)
[2021-08-18] MEDS: Levothyroxine Sodium 25 MCG TAB PER TUBE SCH (05:31)
[2021-08-18] MEDS: Diltiazem HCl SR 60 mg Capsule FS SCH ×2 (09:21→20:08)
[2021-08-18] MEDS: Saccharomyces boulardii 250 MG CAP PER TUBE SCH (09:21)
[2021-08-18] MEDS: Furosemide 40 MG TAB PO SCH (09:21)
[2021-08-18] MEDS: Pantoprazole 40 MG GRANULES PACKET PER TUBE SCH (09:21)
[2021-08-18] MEDS: Montelukast Sodium 10 mg Tablet PER TUBE SCH (09:21)
[2021-08-18] MEDS: Apixaban 5 MG TAB PER TUBE SCH ×2 (09:21→20:08)
[2021-08-18] MEDS: Emollient 15 oz bottle 450 ML, Triamcinolone Acetonide 200 MG TOP SCH (09:22)
[2021-08-18] MEDS: Polyethylene Glycol 3350 17 GM Packet PER TUBE SCH (20:08)
[2021-08-18] MEDS: Acetaminophen 325 MG TAB PO PRN (21:41)
[2021-08-19] MEDS: GUAIFENESIN SF SOLN 200 MG/10 ML UDCUP PO SCH ×4 (04:30→20:46)
[2021-08-19] MEDS: Levothyroxine Sodium 25 MCG TAB PER TUBE SCH (05:15)
[2021-08-19] MEDS: Propafenone HCl 150 MG TAB PER TUBE SCH ×3 (05:15→21:09)
[2021-08-19] MEDS: Diltiazem HCl SR 60 mg Capsule FS SCH ×2 (08:48→20:47)
[2021-08-19] MEDS: Pantoprazole 40 MG GRANULES PACKET PER TUBE SCH (08:49)
[2021-08-19] MEDS: Saccharomyces boulardii 250 MG CAP PER TUBE SCH (08:49)
[2021-08-19] MEDS: Apixaban 5 MG TAB PER TUBE SCH ×2 (08:49→21:04)
[2021-08-19] MEDS: Furosemide 40 MG TAB PO SCH (08:49)
[2021-08-19] MEDS: Montelukast Sodium 10 mg Tablet PER TUBE SCH (08:49)
[2021-08-19] MEDS: Emollient 15 oz bottle 450 ML, Triamcinolone Acetonide 200 MG TOP SCH (09:07)
[2021-08-19 13:31] LABS: Clarity Slightly Cloudy (Clear)
[2021-08-19 13:36] LABS: Specific Gravity, Urine 1.025 (1.002-1.036)
[2021-08-19 13:37] LABS: Glucose, Urine (Dipstick) Negative (Negative); Ketone, Urine Trace mg/dL (Negative); Protein, Urine (Dipstick) > or equal to 300 mg/dL (Neg-Trace)
[2021-08-19 13:38] LABS: Bilirubin Moderate (Negative); Blood, Urine Large (Negative); Nitrite Unable to Interpret (Negative)
[2021-08-19 13:39] LABS: Leukocyte Unable to Interpret (Negative)
[2021-08-19 13:44] LABS: Bacteria/HPF Rare-Few HPF (None Seen); RBC/HPF Greater than 50 HPF (0-3); Squamous Epithelial 0-3 HPF (0-3); WBC/HPF 0-3 HPF (0-3)
[2021-08-19] MEDS: Polyethylene Glycol 3350 17 GM Packet PER TUBE SCH (20:46)
[2021-08-19] MEDS: Acetaminophen 325 MG TAB PO PRN (21:03)
[2021-08-20] MEDS: GUAIFENESIN SF SOLN 200 MG/10 ML UDCUP PO SCH ×4 (03:12→21:09)
[2021-08-20] MEDS: Propafenone HCl 150 MG TAB PER TUBE SCH ×3 (05:07→21:21)
[2021-08-20] MEDS: Levothyroxine Sodium 25 MCG TAB PER TUBE SCH (05:07)
[2021-08-20] MEDS: Pantoprazole 40 MG GRANULES PACKET PER TUBE SCH (09:25)
[2021-08-20] MEDS: Apixaban 5 MG TAB PER TUBE SCH ×2 (09:26→21:10)
[2021-08-20] MEDS: Saccharomyces boulardii 250 MG CAP PER TUBE SCH (09:26)
[2021-08-20] MEDS: Furosemide 40 MG TAB PO SCH (09:26)
[2021-08-20] MEDS: Emollient 15 oz bottle 450 ML, Triamcinolone Acetonide 200 MG TOP SCH (09:32)
[2021-08-20] MEDS: Montelukast Sodium 10 mg Tablet PER TUBE SCH (09:32)
[2021-08-20] MEDS: Diltiazem HCl SR 60 mg Capsule FS SCH ×2 (09:32→21:10)
[2021-08-20] MEDS: Polyethylene Glycol 3350 17 GM Packet PER TUBE SCH (21:10)
[2021-08-20] MEDS: Acetaminophen 325 MG TAB PO PRN (21:20)
[2021-08-21] MEDS: GUAIFENESIN SF SOLN 200 MG/10 ML UDCUP PO SCH ×4 (03:00→20:11)
[2021-08-21] MEDS: Propafenone HCl 150 MG TAB PER TUBE SCH ×3 (05:50→20:14)
[2021-08-21] MEDS: Levothyroxine Sodium 25 MCG TAB PER TUBE SCH (05:51)
[2021-08-21] MEDS: Saccharomyces boulardii 250 MG CAP PER TUBE SCH (09:08)
[2021-08-21] MEDS: Furosemide 40 MG TAB PO SCH (09:08)
[2021-08-21] MEDS: Montelukast Sodium 10 mg Tablet PER TUBE SCH (09:08)
[2021-08-21] MEDS: Pantoprazole 40 MG GRANULES PACKET PER TUBE SCH (09:08)
[2021-08-21] MEDS: Diltiazem HCl SR 60 mg Capsule FS SCH ×2 (09:08→20:12)
[2021-08-21] MEDS: Apixaban 5 MG TAB PER TUBE SCH ×2 (09:08→20:12)
[2021-08-21] MEDS: Emollient 15 oz bottle 450 ML, Triamcinolone Acetonide 200 MG TOP SCH (09:11)
[2021-08-21] MEDS: Acetaminophen 325 MG TAB PO PRN (20:11)
[2021-08-21] MEDS: Polyethylene Glycol 3350 17 GM Packet PER TUBE SCH (20:12)
[2021-08-22] MEDS: GUAIFENESIN SF SOLN 200 MG/10 ML UDCUP PO SCH ×4 (03:39→21:42)
[2021-08-22] MEDS: Levothyroxine Sodium 25 MCG TAB PER TUBE SCH (05:55)
[2021-08-22] MEDS: Propafenone HCl 150 MG TAB PER TUBE SCH ×3 (05:55→21:41)
[2021-08-22] MEDS: AMOXicillin 250 MG CAP PO SCH ×3 (11:16→21:41)
[2021-08-22] MEDS: Saccharomyces boulardii 250 MG CAP PER TUBE SCH (11:16)
[2021-08-22] MEDS: Montelukast Sodium 10 mg Tablet PER TUBE SCH (11:16)
[2021-08-22] MEDS: Pantoprazole 40 MG GRANULES PACKET PER TUBE SCH (11:16)
[2021-08-22] MEDS: Furosemide 40 MG TAB PO SCH (11:17)
[2021-08-22] MEDS: Diltiazem HCl SR 60 mg Capsule FS SCH ×2 (11:17→21:41)
[2021-08-22] MEDS: Apixaban 5 MG TAB PER TUBE SCH ×2 (11:17→21:41)
[2021-08-22] MEDS: Emollient 15 oz bottle 450 ML, Triamcinolone Acetonide 200 MG TOP SCH (11:22)
[2021-08-22] MEDS: Polyethylene Glycol 3350 17 GM Packet PER TUBE SCH (21:42)
[2021-08-23] MEDS: GUAIFENESIN SF SOLN 200 MG/10 ML UDCUP PO SCH ×4 (03:18→20:08)
[2021-08-23] MEDS: Propafenone HCl 150 MG TAB PER TUBE SCH ×3 (05:35→20:08)
[2021-08-23] MEDS: Levothyroxine Sodium 25 MCG TAB PER TUBE SCH (05:36)
[2021-08-23] MEDS: AMOXicillin 250 MG CAP PO SCH ×3 (09:18→20:08)
[2021-08-23] MEDS: Apixaban 5 MG TAB PER TUBE SCH ×2 (09:18→20:09)
[2021-08-23] MEDS: Furosemide 40 MG TAB PO SCH (09:19)
[2021-08-23] MEDS: Pantoprazole 40 MG GRANULES PACKET PER TUBE SCH (09:19)
[2021-08-23] MEDS: Diltiazem HCl SR 60 mg Capsule FS SCH ×2 (09:19→20:09)
[2021-08-23] MEDS: Montelukast Sodium 10 mg Tablet PER TUBE SCH (09:19)
[2021-08-23] MEDS: Saccharomyces boulardii 250 MG CAP PER TUBE SCH (09:19)
[2021-08-23] MEDS: Emollient 15 oz bottle 450 ML, Triamcinolone Acetonide 200 MG TOP SCH (09:21)
[2021-08-23] MEDS: Polyethylene Glycol 3350 17 GM Packet PER TUBE SCH (20:11)
[2021-08-24] MEDS: GUAIFENESIN SF SOLN 200 MG/10 ML UDCUP PO SCH ×4 (02:12→22:28)
[2021-08-24 05:24] LABS: Hemoglobin 11.5 g/dL (14.0-18.0); Platelet Count 221 thou/uL (130-400)
[2021-08-24] MEDS: Levothyroxine Sodium 25 MCG TAB PER TUBE SCH (05:44)
[2021-08-24] MEDS: Propafenone HCl 150 MG TAB PER TUBE SCH ×3 (05:44→22:32)
[2021-08-24] MEDS: AMOXicillin 250 MG CAP PO SCH ×3 (09:25→22:28)
[2021-08-24] MEDS: Furosemide 40 MG TAB PO SCH (09:25)
[2021-08-24] MEDS: Montelukast Sodium 10 mg Tablet PER TUBE SCH (09:25)
[2021-08-24] MEDS: Saccharomyces boulardii 250 MG CAP PER TUBE SCH (09:25)
[2021-08-24] MEDS: Diltiazem HCl SR 60 mg Capsule FS SCH ×2 (09:25→22:28)
[2021-08-24] MEDS: Apixaban 5 MG TAB PER TUBE SCH ×2 (09:25→22:28)
[2021-08-24] MEDS: Pantoprazole 40 MG GRANULES PACKET PER TUBE SCH (09:25)
[2021-08-24] MEDS: Emollient 15 oz bottle 450 ML, Triamcinolone Acetonide 200 MG TOP SCH (09:27)
[2021-08-24] MEDS: Polyethylene Glycol 3350 17 GM Packet PER TUBE SCH (22:29)
[2021-08-25] MEDS: GUAIFENESIN SF SOLN 200 MG/10 ML UDCUP PO SCH ×4 (03:47→20:51)
[2021-08-25] MEDS: Propafenone HCl 150 MG TAB PER TUBE SCH ×3 (05:20→20:53)
[2021-08-25] MEDS: Levothyroxine Sodium 25 MCG TAB PER TUBE SCH (05:35)
[2021-08-25] MEDS: Saccharomyces boulardii 250 MG CAP PER TUBE SCH (08:57)
[2021-08-25] MEDS: Diltiazem HCl SR 60 mg Capsule FS SCH ×2 (08:58→20:51)
[2021-08-25] MEDS: Apixaban 5 MG TAB PER TUBE SCH ×2 (08:58→20:49)
[2021-08-25] MEDS: AMOXicillin 250 MG CAP PO SCH ×3 (08:58→20:48)
[2021-08-25] MEDS: Montelukast Sodium 10 mg Tablet PER TUBE SCH (08:58)
[2021-08-25] MEDS: Pantoprazole 40 MG GRANULES PACKET PER TUBE SCH (08:58)
[2021-08-25] MEDS: Furosemide 40 MG TAB PO SCH (08:58)
[2021-08-25] MEDS: Emollient 15 oz bottle 450 ML, Triamcinolone Acetonide 200 MG TOP SCH (09:02)
[2021-08-25] MEDS: Polyethylene Glycol 3350 17 GM Packet PER TUBE SCH (20:52)
[2021-08-26] MEDS: GUAIFENESIN SF SOLN 200 MG/10 ML UDCUP PO SCH ×3 (03:37→14:38)
[2021-08-26] MEDS: Levothyroxine Sodium 25 MCG TAB PER TUBE SCH (05:29)
[2021-08-26] MEDS: Propafenone HCl 150 MG TAB PER TUBE SCH ×2 (05:29→14:38)
[2021-08-26 07:20] VITALS: BP 114/75; TEMP 97.4
[2021-08-26] MEDS: AMOXicillin 250 MG CAP PO SCH ×2 (08:48→14:38)
[2021-08-26] MEDS: Apixaban 5 MG TAB PER TUBE SCH (08:48)
[2021-08-26] MEDS: Saccharomyces boulardii 250 MG CAP PER TUBE SCH (08:48)
[2021-08-26] MEDS: Furosemide 40 MG TAB PO SCH (08:48)
[2021-08-26] MEDS: Montelukast Sodium 10 mg Tablet PER TUBE SCH (08:48)
[2021-08-26] MEDS: Diltiazem HCl SR 60 mg Capsule FS SCH (08:48)
[2021-08-26] MEDS: Pantoprazole 40 MG GRANULES PACKET PER TUBE SCH (08:48)
[2021-08-26] MEDS: Emollient 15 oz bottle 450 ML, Triamcinolone Acetonide 200 MG TOP SCH (09:18)
== END 2021-08-26 16:20 | disposition home or self-care (01) | DRG 948 ==
LOC: MADMS 16:25
PROVIDERS: ADMIT Family Medicine; ATTEND Family Medicine
PROC: 0B21XFZ Change Tracheostomy Device in Trachea, External Approach (ICD-10-PCS; principal; 2021-08-22)
DX: R53.81 Other malaise (principal); I42.9 Cardiomyopathy, unspecified; N39.0 Urinary tract infection, site not specified; J96.11 Chronic respiratory failure with hypoxia; J44.9 Chronic obstructive pulmonary disease, unspecified; I48.0 Paroxysmal atrial fibrillation; E11.9 Type 2 diabetes mellitus without complications; G47.33 Obstructive sleep apnea (adult) (pediatric); E78.00 Pure hypercholesterolemia, unspecified; E03.9 Hypothyroidism, unspecified; M19.90 Unspecified osteoarthritis, unspecified site; I25.10 Atherosclerotic heart disease of native coronary artery without angina pectoris; R13.12 Dysphagia, oropharyngeal phase; F41.9 Anxiety disorder, unspecified; I87.2 Venous insufficiency (chronic) (peripheral); R31.9 Hematuria, unspecified; B95.2 Enterococcus as the cause of diseases classified elsewhere; T83.098A Other mechanical complication of other urinary catheter, initial encounter; Y83.8 Other surgical procedures as the cause of abnormal reaction of the patient, or of later complication, without mention of misadventure at the time of the procedure; Z90.49 Acquired absence of other specified parts of digestive tract; Z95.5 Presence of coronary angioplasty implant and graft; Z88.8 Allergy status to other drugs, medicaments and biological substances; Z93.0 Tracheostomy status
CPT/HCPCS: 36415; 80053; 81001; 81003; 81015; 82565; 85014; 85018; 85025; 85049; 87077; 87086; 87186; J3301; J7512; J7620

== ENCOUNTER 2021-09-22 22:45 | Inpatient (IN) | payer MEDICARE ==
[2021-09-22] MEDS ORDERED: Sodium Chloride 0.9% 100 ML ONE (23:31)
[2021-09-22] MEDS ORDERED: cefTRIAXone\\ROCEPHIN 2 GM VIAL ONE (23:31)
[2021-09-22 23:47] LABS: Eosinophils 1 % (0-10); Hemoglobin 12.2 g/dL (14.0-18.0); Lymphocytes 24 % (21-51); MDiff Complete? YES; Mean Corpuscular HGB CONC 31.5 g/dL (32.0-36.0); Mean Corpuscular Hemoglobin 28.5 pg (27.0-31.0); Mean Corpuscular Volume 90.4 fL (78.0-98.0); Mean Platelet Volume 7.3 fL (7.4-10.4); Monocytes 7 % (0-10); Neutrophil 68 % (42-75); Platelet Count 209 thou/uL (130-400); RBC Distribution Width 15.4 % (11.5-14.5); Red Blood Cell (RBC) Count 4.29 mill/uL (4.70-6.10); White Blood Cell (WBC) Count 7.1 thou/uL (4.8-10.8)
[2021-09-22 23:51] LABS: ALT (SGPT) 13 U/L (8-55); AST (SGOT) 22 U/L (5-34); Alkaline Phosphatase 116 U/L (40-110); Anion Gap 11 mmol/L (10-20); BUN (Urea Nitrogen) 20 mg/dL (8.4-25.7); Bilirubin, Total 1.1 mg/dL (0.2-1.2); Calc. Creatinine Clearance 0 mL/min (70-130); Carbon Dioxide 32 mmol/L (23-31); Chloride 96 mmol/L (98-107); Globulin 3.4 g/dL (2.4-3.5); Glucose 103 mg/dL (83-110); Potassium 3.8 mmol/L (3.5-5.1); Protein, Total 6.4 g/dL (5.8-8.1); Sodium 135 mmol/L (136-145)
[2021-09-23] MEDS ORDERED: Sodium Chloride 0.9% 500 ML ONE (01:00)
[2021-09-23 01:10] LABS: Bilirubin Negative (Negative); Blood, Urine Trace (Negative); Clarity Slightly Cloudy (Clear); Glucose, Urine (Dipstick) Negative (Negative); Ketone, Urine Negative (Negative); Leukocyte Trace (Negative); Nitrite Negative (Negative); Protein, Urine (Dipstick) Trace mg/dL (Neg-Trace); Specific Gravity, Urine 1.015 (1.005-1.030); Urobilinogen > or = 8.0 mg/dL (Less than 2)
[2021-09-23 01:16] LABS: Bacteria/HPF Rare-Few HPF (None Seen); Squamous Epithelial 0-3 HPF (0-3)
[2021-09-23 01:54] VITALS: BMI 30.5
[2021-09-23 05:40] LABS: ALT (SGPT) 13 U/L (8-55); AST (SGOT) 20 U/L (5-34); Albumin 2.7 g/dL (3.4-4.8); Alkaline Phosphatase 102 U/L (40-110); Anion Gap 11 mmol/L (10-20); BUN (Urea Nitrogen) 18 mg/dL (8.4-25.7); Bilirubin, Total 0.7 mg/dL (0.2-1.2); Calc. Creatinine Clearance 65 mL/min (70-130); Calcium 8.2 mg/dL (7.8-10.44); Carbon Dioxide 29 mmol/L (23-31); Chloride 100 mmol/L (98-107); Glucose 99 mg/dL (83-110); Potassium 3.5 mmol/L (3.5-5.1); Protein, Total 5.7 g/dL (5.8-8.1); Sodium 136 mmol/L (136-145)
[2021-09-23 05:44] LABS: Band 2 % (5-11); Eosinophils 1 % (0-10); Hemoglobin 11.1 g/dL (14.0-18.0); Lymphocytes 32 % (21-51); MDiff Complete? YES; Mean Corpuscular HGB CONC 32.7 g/dL (32.0-36.0); Mean Corpuscular Hemoglobin 29.2 pg (27.0-31.0); Mean Corpuscular Volume 89.3 fL (78.0-98.0); Mean Platelet Volume 7.2 fL (7.4-10.4); Monocytes 6 % (0-10); Neutrophil 58 % (42-75); Platelet Count 186 thou/uL (130-400); Reactive Lymphocytes 1 % (0-10); Red Blood Cell (RBC) Count 3.81 mill/uL (4.70-6.10); White Blood Cell (WBC) Count 6.6 thou/uL (4.8-10.8)
[2021-09-23] MEDS ORDERED: Vancomycin HCl 750 MG in Sodium Chloride 0.9% 250 ML 250 ML IVPB SCH (06:00)
[2021-09-23] MEDS: Levothyroxine Sodium 25 MCG TAB PER TUBE SCH (06:02)
[2021-09-23] MEDS: Propafenone HCl 150 MG TAB PER TUBE SCH ×3 (06:02→21:19)
[2021-09-23] MEDS: Vancomycin HCl 500 MG in Sodium Chloride 0.9% 100 ML IVPB SCH (06:03)
[2021-09-23] MEDS: Vancomycin HCl 750 MG in Sodium Chloride 0.9% 250 ML 250 ML IVPB SCH (06:03)
[2021-09-23] MEDS: Emollient 15 oz bottle 450 ML, Triamcinolone Acetonide 200 MG TOP PRN (08:20)
[2021-09-23] MEDS: Potassium Bicarbonate/Cit Ac 20 MEQ TAB PER TUBE SCH ×2 (08:21→21:20)
[2021-09-23] MEDS: Montelukast Sodium 10 mg Tablet PO SCH (08:26)
[2021-09-23] MEDS: Diltiazem HCl SR 60 mg Capsule PO SCH ×2 (08:26→21:20)
[2021-09-23] MEDS: Furosemide 40 MG TAB PER TUBE SCH (08:26)
[2021-09-23] MEDS: Apixaban 5 MG TAB PER TUBE SCH ×2 (08:26→21:20)
[2021-09-23] MEDS: Ketoconazole 2% Cream 15 gm Tube TOP SCH (08:28)
[2021-09-23] MEDS: Polyethylene Glycol 3350 17 GM Packet PER TUBE SCH (08:30)
[2021-09-23] MEDS: Pantoprazole 40 MG GRANULES PACKET PER TUBE SCH (21:20)
[2021-09-23] MEDS: cefTRIAXone\\ROCEPHIN 2 GM in Sodium Chloride 0.9% 100 ML IVPB SCH (22:12)
[2021-09-24] MEDS: Vancomycin HCl 750 MG in Sodium Chloride 0.9% 250 ML 250 ML IVPB SCH (06:00)
[2021-09-24] MEDS: Vancomycin HCl 500 MG in Sodium Chloride 0.9% 100 ML IVPB SCH (06:01)
[2021-09-24] MEDS: Levothyroxine Sodium 25 MCG TAB PER TUBE SCH (06:02)
[2021-09-24] MEDS: Propafenone HCl 150 MG TAB PER TUBE SCH ×3 (06:02→21:57)
[2021-09-24] MEDS: Furosemide 40 MG TAB PER TUBE SCH (08:45)
[2021-09-24] MEDS: Diltiazem HCl SR 60 mg Capsule PO SCH ×2 (08:45→21:56)
[2021-09-24] MEDS: Apixaban 5 MG TAB PER TUBE SCH ×2 (08:45→21:56)
[2021-09-24] MEDS: Montelukast Sodium 10 mg Tablet PO SCH (08:45)
[2021-09-24] MEDS: Potassium Bicarbonate/Cit Ac 20 MEQ TAB PER TUBE SCH ×2 (08:45→21:57)
[2021-09-24] MEDS: Ketoconazole 2% Cream 15 gm Tube TOP SCH (08:46)
[2021-09-24] MEDS: Polyethylene Glycol 3350 17 GM Packet PER TUBE SCH (08:49)
[2021-09-24] MEDS ORDERED: FLU VACC QS2021-22(65YR UP)/PF 240 MCG/0.7 ML SYRINGE IM ONE (09:00)
[2021-09-24] MEDS: Pantoprazole 40 MG GRANULES PACKET PER TUBE SCH (21:57)
[2021-09-24] MEDS: cefTRIAXone\\ROCEPHIN 2 GM in Sodium Chloride 0.9% 100 ML IVPB SCH (22:52)
[2021-09-24] MEDS: Emollient 15 oz bottle 450 ML, Triamcinolone Acetonide 200 MG TOP PRN (23:07)
[2021-09-25] MEDS: Vancomycin HCl 500 MG in Sodium Chloride 0.9% 100 ML IVPB SCH (05:20)
[2021-09-25] MEDS: Vancomycin HCl 750 MG in Sodium Chloride 0.9% 250 ML 250 ML IVPB SCH (05:20)
[2021-09-25] MEDS: Levothyroxine Sodium 25 MCG TAB PER TUBE SCH (05:22)
[2021-09-25] MEDS: Propafenone HCl 150 MG TAB PER TUBE SCH ×3 (05:23→21:06)
[2021-09-25 06:00] LABS: Vancomycin, Trough 9.3 ug/mL
[2021-09-25] MEDS: Polyethylene Glycol 3350 17 GM Packet PER TUBE SCH (08:11)
[2021-09-25] MEDS: Potassium Bicarbonate/Cit Ac 20 MEQ TAB PER TUBE SCH ×2 (08:11→20:55)
[2021-09-25] MEDS: Ketoconazole 2% Cream 15 gm Tube TOP SCH (08:12)
[2021-09-25] MEDS: Furosemide 40 MG TAB PER TUBE SCH (08:12)
[2021-09-25] MEDS: Apixaban 5 MG TAB PER TUBE SCH ×2 (08:12→20:55)
[2021-09-25] MEDS: Montelukast Sodium 10 mg Tablet PO SCH (08:12)
[2021-09-25] MEDS: Diltiazem HCl SR 60 mg Capsule PO SCH ×2 (08:12→20:54)
[2021-09-25] MEDS: Cephalexin 500 MG CAP PO SCH ×3 (12:03→23:16)
[2021-09-25] MEDS ORDERED: Acetaminophen 325 MG TAB PER TUBE PRN (20:30)
[2021-09-25] MEDS: Pantoprazole 40 MG GRANULES PACKET PER TUBE SCH (20:54)
[2021-09-26] MEDS: Cephalexin 500 MG CAP PO SCH ×2 (05:26→11:59)
[2021-09-26] MEDS: Levothyroxine Sodium 25 MCG TAB PER TUBE SCH (05:26)
[2021-09-26] MEDS: Vancomycin HCl 750 MG in Sodium Chloride 0.9% 250 ML 250 ML IVPB SCH (05:26)
[2021-09-26] MEDS: Propafenone HCl 150 MG TAB PER TUBE SCH (05:26)
[2021-09-26] MEDS: Ketoconazole 2% Cream 15 gm Tube TOP SCH (08:58)
[2021-09-26] MEDS: Emollient 15 oz bottle 450 ML, Triamcinolone Acetonide 200 MG TOP PRN (08:59)
[2021-09-26] MEDS: Furosemide 40 MG TAB PER TUBE SCH (09:58)
[2021-09-26] MEDS: Apixaban 5 MG TAB PER TUBE SCH (09:58)
[2021-09-26] MEDS: Diltiazem HCl SR 60 mg Capsule PO SCH (09:58)
[2021-09-26] MEDS: Potassium Bicarbonate/Cit Ac 20 MEQ TAB PER TUBE SCH (09:58)
[2021-09-26] MEDS: Montelukast Sodium 10 mg Tablet PO SCH (09:58)
[2021-09-26] MEDS: Polyethylene Glycol 3350 17 GM Packet PER TUBE SCH (09:59)
[2021-09-26] MEDS ORDERED: Vancomycin HCl 750 MG in Sodium Chloride 0.9% 250 ML 250 ML IVPB SCH (12:00)
[2021-09-26 14:39] VITALS: BP 100/55; TEMP 98.2
[2021-09-27] MEDS ORDERED: Vancomycin 1.5 GRAM/300 ML BAG 1.5 GM in Premix Bag 1 BAG IVPB SCH (12:00)
== END 2021-09-26 12:58 | disposition swing bed (61) | DRG 603 ==
LOC: MADERS 22:45 → MADMS 09-23 01:14
PROVIDERS: ADMIT Family Medicine; ATTEND Family Medicine
DX: L03.116 Cellulitis of left lower limb (principal); N17.9 Acute kidney failure, unspecified; I13.0 Hypertensive heart and chronic kidney disease with heart failure and stage 1 through stage 4 chronic kidney disease, or unspecified chronic kidney disease; J96.11 Chronic respiratory failure with hypoxia; I50.32 Chronic diastolic (congestive) heart failure; L03.115 Cellulitis of right lower limb; E03.9 Hypothyroidism, unspecified; E78.5 Hyperlipidemia, unspecified; E78.00 Pure hypercholesterolemia, unspecified; J44.9 Chronic obstructive pulmonary disease, unspecified; E11.22 Type 2 diabetes mellitus with diabetic chronic kidney disease; E86.0 Dehydration; I25.5 Ischemic cardiomyopathy; I48.0 Paroxysmal atrial fibrillation; G47.33 Obstructive sleep apnea (adult) (pediatric); E66.9 Obesity, unspecified; I25.10 Atherosclerotic heart disease of native coronary artery without angina pectoris; N18.30 Chronic kidney disease, stage 3 unspecified; Z95.5 Presence of coronary angioplasty implant and graft; Z90.49 Acquired absence of other specified parts of digestive tract; Z93.0 Tracheostomy status; Z86.16 Personal history of COVID-19; Z68.30 Body mass index [BMI] 30.0-30.9, adult
CPT/HCPCS: 36415; 71045; 80053; 80202; 81003; 81015; 83605; 83880; 85025; 87040; 87086; 93005; 96365; J0696; J3370; J3490; J7030; J7050; J7620

== ENCOUNTER 2021-09-26 13:14 | Inpatient (IN) | payer MEDICARE ==
[2021-09-26] MEDS ORDERED: Emollient 15 oz bottle 450 ML, Triamcinolone Acetonide 200 MG TOP PRN (14:00)
[2021-09-26] MEDS: Propafenone HCl 150 MG TAB PER TUBE SCH ×2 (14:28→21:49)
[2021-09-26] MEDS: Cephalexin 500 MG CAP PO SCH (17:41)
[2021-09-26] MEDS: Pantoprazole 40 MG GRANULES PACKET PER TUBE SCH (21:49)
[2021-09-26] MEDS: Diltiazem HCl SR 60 mg Capsule PO SCH (21:50)
[2021-09-26] MEDS: Potassium Bicarbonate/Cit Ac 20 MEQ TAB PER TUBE SCH (21:50)
[2021-09-26] MEDS: Apixaban 5 MG TAB PO SCH (21:51)
[2021-09-27] MEDS: Levothyroxine Sodium 25 MCG TAB PO SCH (05:05)
[2021-09-27] MEDS: Propafenone HCl 150 MG TAB PER TUBE SCH ×3 (05:05→21:08)
[2021-09-27] MEDS: Cephalexin 500 MG CAP PO SCH ×5 (05:06→23:55)
[2021-09-27] MEDS: Acetaminophen 325 MG TAB PER TUBE PRN (05:10)
[2021-09-27] MEDS: Apixaban 5 MG TAB PO SCH ×2 (08:36→20:23)
[2021-09-27] MEDS: Polyethylene Glycol 3350 17 GM Packet PER TUBE SCH (08:36)
[2021-09-27] MEDS: Potassium Bicarbonate/Cit Ac 20 MEQ TAB PER TUBE SCH ×2 (08:36→20:23)
[2021-09-27] MEDS: Montelukast Sodium 10 mg Tablet PO SCH (08:36)
[2021-09-27] MEDS: Diltiazem HCl SR 60 mg Capsule PO SCH ×2 (08:36→20:23)
[2021-09-27] MEDS: Furosemide 40 MG TAB PER TUBE SCH (08:36)
[2021-09-27] MEDS: Ketoconazole 2% Cream 15 gm Tube TOP SCH (08:38)
[2021-09-27] MEDS: Pantoprazole 40 MG GRANULES PACKET PER TUBE SCH (20:24)
[2021-09-28] MEDS: Propafenone HCl 150 MG TAB PER TUBE SCH ×3 (05:32→21:38)
[2021-09-28] MEDS: Cephalexin 500 MG CAP PO SCH ×4 (05:32→23:29)
[2021-09-28] MEDS: Levothyroxine Sodium 25 MCG TAB PO SCH (05:33)
[2021-09-28] MEDS: Montelukast Sodium 10 mg Tablet PO SCH (08:52)
[2021-09-28] MEDS: Potassium Bicarbonate/Cit Ac 20 MEQ TAB PER TUBE SCH ×2 (08:52→20:43)
[2021-09-28] MEDS: Apixaban 5 MG TAB PO SCH ×2 (08:52→20:37)
[2021-09-28] MEDS: Polyethylene Glycol 3350 17 GM Packet PER TUBE SCH (08:52)
[2021-09-28] MEDS: Furosemide 40 MG TAB PER TUBE SCH (08:52)
[2021-09-28] MEDS: Diltiazem HCl SR 60 mg Capsule PO SCH ×2 (08:52→20:40)
[2021-09-28] MEDS: Acetaminophen 325 MG TAB PER TUBE PRN ×2 (08:56→21:40)
[2021-09-28] MEDS: Ketoconazole 2% Cream 15 gm Tube TOP SCH (09:09)
[2021-09-28] MEDS: Pantoprazole 40 MG GRANULES PACKET PER TUBE SCH (20:41)
[2021-09-29] MEDS: Acetaminophen 325 MG TAB PER TUBE PRN ×2 (02:51→11:23)
[2021-09-29] MEDS: Cephalexin 500 MG CAP PO SCH ×4 (05:40→23:09)
[2021-09-29] MEDS: Propafenone HCl 150 MG TAB PER TUBE SCH ×3 (05:41→21:06)
[2021-09-29] MEDS: Levothyroxine Sodium 25 MCG TAB PO SCH (05:41)
[2021-09-29] MEDS: Polyethylene Glycol 3350 17 GM Packet PER TUBE SCH (08:16)
[2021-09-29] MEDS: Potassium Bicarbonate/Cit Ac 20 MEQ TAB PER TUBE SCH ×2 (08:16→20:08)
[2021-09-29] MEDS: Apixaban 5 MG TAB PO SCH ×2 (08:16→20:09)
[2021-09-29] MEDS: Furosemide 40 MG TAB PER TUBE SCH (08:16)
[2021-09-29] MEDS: Ketoconazole 2% Cream 15 gm Tube TOP SCH (08:16)
[2021-09-29] MEDS: Diltiazem HCl SR 60 mg Capsule PO SCH ×2 (08:16→20:09)
[2021-09-29] MEDS: Montelukast Sodium 10 mg Tablet PO SCH (08:16)
[2021-09-29] MEDS: Pantoprazole 40 MG GRANULES PACKET PER TUBE SCH (20:09)
[2021-09-30] MEDS: Acetaminophen 325 MG TAB PER TUBE PRN ×3 (02:35→20:21)
[2021-09-30] MEDS: Levothyroxine Sodium 25 MCG TAB PO SCH (04:59)
[2021-09-30] MEDS: Cephalexin 500 MG CAP PO SCH ×4 (04:59→23:37)
[2021-09-30] MEDS: Propafenone HCl 150 MG TAB PER TUBE SCH ×3 (04:59→21:08)
[2021-09-30] MEDS ORDERED: Fluorescein Opthalmic Strip ONE (07:47)
[2021-09-30] MEDS: Polyethylene Glycol 3350 17 GM Packet PER TUBE SCH (08:22)
[2021-09-30] MEDS: Diltiazem HCl SR 60 mg Capsule PO SCH ×2 (08:22→20:19)
[2021-09-30] MEDS: Ketoconazole 2% Cream 15 gm Tube TOP SCH (08:23)
[2021-09-30] MEDS: Apixaban 5 MG TAB PO SCH ×2 (08:23→20:19)
[2021-09-30] MEDS: Montelukast Sodium 10 mg Tablet PO SCH (08:23)
[2021-09-30] MEDS: Furosemide 40 MG TAB PER TUBE SCH (08:23)
[2021-09-30] MEDS: Potassium Bicarbonate/Cit Ac 20 MEQ TAB PER TUBE SCH ×2 (08:25→20:20)
[2021-09-30] MEDS: Ondansetron ODT 4 MG TAB SL PRN (12:34)
[2021-10-01] MEDS: Acetaminophen 325 MG TAB PER TUBE PRN ×2 (04:09→20:44)
[2021-10-01] MEDS: Levothyroxine Sodium 25 MCG TAB PO SCH (05:13)
[2021-10-01] MEDS: Cephalexin 500 MG CAP PO SCH ×4 (05:13→23:17)
[2021-10-01] MEDS: Propafenone HCl 150 MG TAB PER TUBE SCH ×3 (05:13→20:46)
[2021-10-01 05:26] LABS: Hemoglobin 10.2 g/dL (14.0-18.0); Platelet Count 334 thou/uL (130-400)
[2021-10-01] MEDS: Diltiazem HCl SR 60 mg Capsule PO SCH ×2 (09:08→20:44)
[2021-10-01] MEDS: Polyethylene Glycol 3350 17 GM Packet PER TUBE SCH (09:08)
[2021-10-01] MEDS: Apixaban 5 MG TAB PO SCH ×2 (09:08→20:46)
[2021-10-01] MEDS: Montelukast Sodium 10 mg Tablet PO SCH (09:08)
[2021-10-01] MEDS: Furosemide 40 MG TAB PER TUBE SCH (09:08)
[2021-10-01] MEDS: Potassium Bicarbonate/Cit Ac 20 MEQ TAB PER TUBE SCH ×2 (09:14→20:46)
[2021-10-01] MEDS: Ketoconazole 2% Cream 15 gm Tube TOP SCH (09:15)
[2021-10-02] MEDS: Propafenone HCl 150 MG TAB PER TUBE SCH ×3 (05:46→21:06)
[2021-10-02] MEDS: Cephalexin 500 MG CAP PO SCH ×4 (05:46→23:36)
[2021-10-02] MEDS: Levothyroxine Sodium 25 MCG TAB PO SCH (05:46)
[2021-10-02] MEDS: Diltiazem HCl SR 60 mg Capsule PO SCH ×2 (08:55→20:13)
[2021-10-02] MEDS: Potassium Bicarbonate/Cit Ac 20 MEQ TAB PER TUBE SCH ×2 (08:55→20:14)
[2021-10-02] MEDS: Polyethylene Glycol 3350 17 GM Packet PER TUBE SCH (08:55)
[2021-10-02] MEDS: Apixaban 5 MG TAB PO SCH ×2 (08:55→20:13)
[2021-10-02] MEDS: Montelukast Sodium 10 mg Tablet PO SCH (08:55)
[2021-10-02] MEDS: Furosemide 40 MG TAB PER TUBE SCH (08:55)
[2021-10-02] MEDS: Ketoconazole 2% Cream 15 gm Tube TOP SCH (09:03)
[2021-10-02] MEDS: Acetaminophen 325 MG TAB PER TUBE PRN (20:13)
[2021-10-03] MEDS: Propafenone HCl 150 MG TAB PER TUBE SCH (05:54)
[2021-10-03] MEDS: Levothyroxine Sodium 25 MCG TAB PO SCH (05:55)
[2021-10-03] MEDS: Cephalexin 500 MG CAP PO SCH ×3 (05:55→17:55)
[2021-10-03] MEDS: Diltiazem HCl SR 60 mg Capsule PO SCH ×2 (08:25→20:58)
[2021-10-03] MEDS: Furosemide 40 MG TAB PER TUBE SCH (08:26)
[2021-10-03] MEDS: Ketoconazole 2% Cream 15 gm Tube TOP SCH (08:26)
[2021-10-03] MEDS: Apixaban 5 MG TAB PO SCH ×2 (08:26→20:58)
[2021-10-03] MEDS: Montelukast Sodium 10 mg Tablet PO SCH (08:26)
[2021-10-03] MEDS: Polyethylene Glycol 3350 17 GM Packet PER TUBE SCH (08:26)
[2021-10-03] MEDS: Potassium Bicarbonate/Cit Ac 20 MEQ TAB PER TUBE SCH (08:26)
[2021-10-03] MEDS: Propafenone HCl 150 MG TAB PO SCH ×2 (16:06→21:53)
[2021-10-03] MEDS ORDERED: Pantoprazole 40 MG GRANULES PACKET PER TUBE SCH (21:00)
[2021-10-03] MEDS: Potassium Bicarbonate/Cit Ac 20 MEQ TAB PO SCH (21:01)
[2021-10-04] MEDS: Acetaminophen 325 MG TAB PO PRN ×2 (01:25→20:52)
[2021-10-04] MEDS: Levothyroxine Sodium 25 MCG TAB PO SCH (05:59)
[2021-10-04] MEDS: Propafenone HCl 150 MG TAB PO SCH ×3 (06:00→20:50)
[2021-10-04] MEDS: Potassium Bicarbonate/Cit Ac 20 MEQ TAB PO SCH ×2 (08:12→20:52)
[2021-10-04] MEDS: Furosemide 40 MG TAB PO SCH (08:12)
[2021-10-04] MEDS: Montelukast Sodium 10 mg Tablet PO SCH (08:12)
[2021-10-04] MEDS: Apixaban 5 MG TAB PO SCH ×2 (08:12→20:51)
[2021-10-04] MEDS: Diltiazem HCl SR 60 mg Capsule PO SCH ×2 (08:12→20:51)
[2021-10-04] MEDS: Polyethylene Glycol 3350 17 GM Packet PO SCH (08:12)
[2021-10-04] MEDS: Ketoconazole 2% Cream 15 gm Tube TOP SCH (08:13)
[2021-10-05] MEDS: Ondansetron ODT 4 MG TAB SL PRN (04:57)
[2021-10-05] MEDS: Propafenone HCl 150 MG TAB PO SCH ×3 (05:26→21:07)
[2021-10-05] MEDS: Levothyroxine Sodium 25 MCG TAB PO SCH (05:26)
[2021-10-05] MEDS: Furosemide 40 MG TAB PO SCH (08:46)
[2021-10-05] MEDS: Polyethylene Glycol 3350 17 GM Packet PO SCH (08:46)
[2021-10-05] MEDS: Potassium Bicarbonate/Cit Ac 20 MEQ TAB PO SCH ×2 (08:46→20:36)
[2021-10-05] MEDS: Apixaban 5 MG TAB PO SCH ×2 (08:46→20:35)
[2021-10-05] MEDS: Diltiazem HCl SR 60 mg Capsule PO SCH ×2 (08:46→20:35)
[2021-10-05] MEDS: Montelukast Sodium 10 mg Tablet PO SCH (08:46)
[2021-10-05] MEDS: Ketoconazole 2% Cream 15 gm Tube TOP SCH (08:47)
[2021-10-05 12:05] VITALS: BMI 31.7
[2021-10-06] MEDS: Acetaminophen 325 MG TAB PO PRN (01:09)
[2021-10-06] MEDS: Levothyroxine Sodium 25 MCG TAB PO SCH (05:54)
[2021-10-06] MEDS: Propafenone HCl 150 MG TAB PO SCH ×3 (05:54→21:59)
[2021-10-06] MEDS: Polyethylene Glycol 3350 17 GM Packet PO SCH (08:20)
[2021-10-06] MEDS: Potassium Bicarbonate/Cit Ac 20 MEQ TAB PO SCH ×2 (08:22→20:15)
[2021-10-06] MEDS: Furosemide 40 MG TAB PO SCH (08:23)
[2021-10-06] MEDS: Apixaban 5 MG TAB PO SCH ×2 (08:23→20:15)
[2021-10-06] MEDS: Montelukast Sodium 10 mg Tablet PO SCH (08:23)
[2021-10-06] MEDS: Diltiazem HCl SR 60 mg Capsule PO SCH ×2 (08:23→20:15)
[2021-10-06] MEDS: Ketoconazole 2% Cream 15 gm Tube TOP SCH (08:24)
[2021-10-07] MEDS: Propafenone HCl 150 MG TAB PO SCH (05:53)
[2021-10-07] MEDS: Levothyroxine Sodium 25 MCG TAB PO SCH (05:53)
[2021-10-07 07:20] VITALS: BP 117/70; TEMP 97.5
[2021-10-07] MEDS: Apixaban 5 MG TAB PO SCH (09:09)
[2021-10-07] MEDS: Montelukast Sodium 10 mg Tablet PO SCH (09:09)
[2021-10-07] MEDS: Potassium Bicarbonate/Cit Ac 20 MEQ TAB PO SCH (09:09)
[2021-10-07] MEDS: Diltiazem HCl SR 60 mg Capsule PO SCH (09:10)
[2021-10-07] MEDS: Furosemide 40 MG TAB PO SCH (09:10)
[2021-10-07] MEDS: Polyethylene Glycol 3350 17 GM Packet PO SCH (09:10)
[2021-10-07] MEDS: Ketoconazole 2% Cream 15 gm Tube TOP SCH (09:10)
== END 2021-10-07 11:30 | disposition home or self-care (01) | DRG 948 ==
LOC: MADMS 13:14
PROVIDERS: ADMIT Family Medicine; ATTEND Family Medicine
DX: R53.81 Other malaise (principal); I42.9 Cardiomyopathy, unspecified; I50.32 Chronic diastolic (congestive) heart failure; I13.0 Hypertensive heart and chronic kidney disease with heart failure and stage 1 through stage 4 chronic kidney disease, or unspecified chronic kidney disease; G47.33 Obstructive sleep apnea (adult) (pediatric); J44.9 Chronic obstructive pulmonary disease, unspecified; I25.10 Atherosclerotic heart disease of native coronary artery without angina pectoris; I48.0 Paroxysmal atrial fibrillation; I87.2 Venous insufficiency (chronic) (peripheral); F41.9 Anxiety disorder, unspecified; F32.A Depression, unspecified; E03.9 Hypothyroidism, unspecified; E66.9 Obesity, unspecified; E78.5 Hyperlipidemia, unspecified; N18.30 Chronic kidney disease, stage 3 unspecified; E11.22 Type 2 diabetes mellitus with diabetic chronic kidney disease; Z95.5 Presence of coronary angioplasty implant and graft; Z93.0 Tracheostomy status; Z68.31 Body mass index [BMI] 31.0-31.9, adult
CPT/HCPCS: 82565; 85014; 85018; 85049; J3301; J7620; Q0162

== ENCOUNTER 2021-10-17 13:37 | Outpatient (CLI) | payer MEDICARE ==
[2021-10-17 13:45] LABS: #Eosinphils 0.2 thou/uL (0.0-0.7); #Lymphocytes 2.2 thou/uL (1.20-3.40); #Monocytes 0.4 thou/uL (0.11-0.59); %Basophils 0.9 % (0.0-1.0); %Eosinophils 3.2 % (0.0-10.0); %Lymphocytes 45.5 % (21.0-51.0); %Monocytes 8.6 % (0.0-10.0); %Neutrophils 41.8 % (42.0-75.0); Mean Corpuscular HGB CONC 30.4 g/dL (32.0-36.0); Mean Corpuscular Hemoglobin 27.6 pg (27.0-31.0); Mean Corpuscular Volume 90.7 fL (78.0-98.0); Mean Platelet Volume 7.3 fL (7.4-10.4); Platelet Count 206 thou/uL (130-400); RBC Distribution Width 15.6 % (11.5-14.5); White Blood Cell (WBC) Count 4.9 thou/uL (4.8-10.8)
[2021-10-17 13:59] LABS: ALT (SGPT) 7 U/L (8-55); AST (SGOT) 13 U/L (5-34); Albumin 3.4 g/dL (3.4-4.8); Alkaline Phosphatase 125 U/L (40-110); Anion Gap 14 mmol/L (10-20); BUN (Urea Nitrogen) 19 mg/dL (8.4-25.7); Bilirubin, Total 0.3 mg/dL (0.2-1.2); Calc. Creatinine Clearance 0 mL/min (70-130); Calcium 9.3 mg/dL (7.8-10.44); Carbon Dioxide 30 mmol/L (23-31); Chloride 101 mmol/L (98-107); Globulin 3.4 g/dL (2.4-3.5); Glucose 92 mg/dL (83-110); Potassium 4.2 mmol/L (3.5-5.1); Protein, Total 6.8 g/dL (5.8-8.1); Sodium 141 mmol/L (136-145)
[2021-10-17 22:56] LABS: Hemoglobin A1c 4.9 % (4.0-6.0)
== END 2021-10-17 13:38 | disposition home or self-care (01) ==
LOC: MADLAB 13:37
PROVIDERS: ATTEND Family Medicine
DX: I25.10 Atherosclerotic heart disease of native coronary artery without angina pectoris (principal); E11.51 Type 2 diabetes mellitus with diabetic peripheral angiopathy without gangrene; J44.9 Chronic obstructive pulmonary disease, unspecified; U09.9 Post COVID-19 condition, unspecified; I42.9 Cardiomyopathy, unspecified
CPT/HCPCS: 80053; 83036; 85025

== ENCOUNTER 2021-11-14 13:10 | Outpatient (CLI) | payer MEDICARE ==
[2021-11-14 13:20] LABS: #Eosinphils 0.2 thou/uL (0.0-0.7); #Lymphocytes 2.1 thou/uL (1.20-3.40); #Monocytes 0.4 thou/uL (0.11-0.59); #Neutrophils 2.3 thou/uL (1.40-6.50); %Basophils 0.8 % (0.0-1.0); %Eosinophils 4.7 % (0.0-10.0); %Lymphocytes 41.2 % (21.0-51.0); %Monocytes 8.3 % (0.0-10.0); %Neutrophils 44.9 % (42.0-75.0); Hemoglobin 11.8 g/dL (14.0-18.0); Mean Corpuscular HGB CONC 30.5 g/dL (32.0-36.0); Mean Corpuscular Hemoglobin 27.2 pg (27.0-31.0); Mean Corpuscular Volume 89.2 fL (78.0-98.0); Mean Platelet Volume 7.6 fL (7.4-10.4); Platelet Count 195 thou/uL (130-400); RBC Distribution Width 14.2 % (11.5-14.5); Red Blood Cell (RBC) Count 4.35 mill/uL (4.70-6.10)
[2021-11-14 13:30] LABS: Anion Gap 11 mmol/L (10-20); BUN (Urea Nitrogen) 20 mg/dL (8.4-25.7); Calc. Creatinine Clearance 0 mL/min (70-130); Calcium 9.6 mg/dL (7.8-10.44); Carbon Dioxide 36 mmol/L (23-31); Chloride 96 mmol/L (98-107); Glucose 95 mg/dL (83-110); Potassium 4.5 mmol/L (3.5-5.1); Sodium 138 mmol/L (136-145)
== END 2021-11-14 13:11 | disposition home or self-care (01) ==
LOC: MADLAB 13:10
PROVIDERS: ATTEND Family Medicine
DX: I25.10 Atherosclerotic heart disease of native coronary artery without angina pectoris (principal); I42.9 Cardiomyopathy, unspecified
CPT/HCPCS: 80048; 85025

== ENCOUNTER 2021-12-14 11:16 | Emergency (ER) | payer MEDICARE ==
[2021-12-14 12:08] LABS: #Eosinphils 0.1 thou/uL (0.0-0.7); #Lymphocytes 2.1 thou/uL (1.20-3.40); #Monocytes 0.8 thou/uL (0.11-0.59); %Basophils 0.6 % (0.0-1.0); %Lymphocytes 30.2 % (21.0-51.0); %Monocytes 11.8 % (0.0-10.0); %Neutrophils 56.4 % (42.0-75.0); Mean Corpuscular HGB CONC 30.7 g/dL (32.0-36.0); Mean Corpuscular Hemoglobin 26.1 pg (27.0-31.0); Mean Corpuscular Volume 85.1 fL (78.0-98.0); Mean Platelet Volume 7.2 fL (7.4-10.4); Platelet Count 230 thou/uL (130-400); RBC Distribution Width 13.5 % (11.5-14.5); Red Blood Cell (RBC) Count 4.61 mill/uL (4.70-6.10)
[2021-12-14 12:22] LABS: ALT (SGPT) 12 U/L (8-55); AST (SGOT) 14 U/L (5-34); Albumin 3.7 g/dL (3.4-4.8); Alkaline Phosphatase 128 U/L (40-110); Anion Gap 15 mmol/L (10-20); BUN (Urea Nitrogen) 25 mg/dL (8.4-25.7); Bilirubin, Total 0.6 mg/dL (0.2-1.2); Calc. Creatinine Clearance 0 mL/min (70-130); Calcium 8.7 mg/dL (7.8-10.44); Carbon Dioxide 35 mmol/L (23-31); Chloride 94 mmol/L (98-107); Globulin 3.1 g/dL (2.4-3.5); Glucose 104 mg/dL (83-110); Protein, Total 6.8 g/dL (5.8-8.1); Sodium 140 mmol/L (136-145)
[2021-12-14] MEDS ORDERED: Glycerin Adult Supp. (24 ct jar) ONE (12:54)
[2021-12-14] MEDS ORDERED: Furosemide 40 MG/4 ML VIAL ONE (12:54)
== END 2021-12-14 20:00 | disposition home or self-care (01) ==
LOC: MADERS 11:16
DX: S70.02XA Contusion of left hip, initial encounter (principal); R07.9 Chest pain, unspecified; K59.00 Constipation, unspecified; E11.9 Type 2 diabetes mellitus without complications; E03.9 Hypothyroidism, unspecified; E78.5 Hyperlipidemia, unspecified; I11.0 Hypertensive heart disease with heart failure; I50.9 Heart failure, unspecified; Z79.01 Long term (current) use of anticoagulants; Z79.899 Other long term (current) drug therapy; W19.XXXA Unspecified fall, initial encounter
CPT/HCPCS: 36415; 74022; 80053; 83880; 84484; 85025; 93005; 94760; 96374; J1940; J7620

== ENCOUNTER 2022-02-01 06:40 | Outpatient (CLI) | payer MEDICARE ==
[2022-02-01 07:18] LABS: ALT (SGPT) 16 U/L (8-55); AST (SGOT) 19 U/L (5-34); Albumin 3.9 g/dL (3.4-4.8); Alkaline Phosphatase 121 U/L (40-110); Anion Gap 19 mmol/L (10-20); BUN (Urea Nitrogen) 29 mg/dL (8.4-25.7); Bilirubin, Total 0.3 mg/dL (0.2-1.2); Calc. Creatinine Clearance 0 mL/min (70-130); Carbon Dioxide 32 mmol/L (23-31); Cardiac Risk 3.7 (Less than 4.5); Chloride 93 mmol/L (98-107); Cholesterol 196 mg/dl (< 200 Desired); Globulin 3.7 g/dL (2.4-3.5); Glucose 98 mg/dL (83-110); HDL Cholesterol 53 mg/dL (>60 Neg Risk); LDL Cholesterol, Calculated 129 mg/dL; Potassium 3.8 mmol/L (3.5-5.1); Protein, Total 7.6 g/dL (5.8-8.1); Sodium 140 mmol/L (136-145); Triglycerides 71 mg/dL (Less than 150)
== END 2022-02-01 06:41 | disposition home or self-care (01) ==
LOC: MADLAB 06:40
PROVIDERS: ATTEND Internal Medicine Cardiovascular Disease
DX: I50.30 Unspecified diastolic (congestive) heart failure (principal); I48.0 Paroxysmal atrial fibrillation
CPT/HCPCS: 36415; 80053; 80061

== ENCOUNTER 2022-06-22 17:59 | Emergency (ER) | payer MEDICARE | END 2022-06-22 20:49 | disposition home or self-care (01) | LOC: MADERS 17:59 | DX: M79.672 Pain in left foot (principal); E11.9 Type 2 diabetes mellitus without complications; E03.9 Hypothyroidism, unspecified; I48.91 Unspecified atrial fibrillation; I13.0 Hypertensive heart and chronic kidney disease with heart failure and stage 1 through stage 4 chronic kidney disease, or unspecified chronic kidney disease; N18.9 Chronic kidney disease, unspecified; I50.9 Heart failure, unspecified; E78.5 Hyperlipidemia, unspecified | CPT/HCPCS: 99283 ==

== ENCOUNTER 2022-07-28 00:53 | Emergency (ER) | payer MEDICARE ==
[2022-07-28] MEDS ORDERED: Ondansetron PF 4 MG/2 ML Vial ONE (01:26)
[2022-07-28] MEDS ORDERED: Dicyclomine 20 MG/2 ML VIAL ONE (01:26)
[2022-07-28 01:29] LABS: #Eosinphils 0.1 thou/uL (0.0-0.7); #Lymphocytes 1.7 thou/uL (1.20-3.40); #Monocytes 0.7 thou/uL (0.11-0.59); #Neutrophils 4.6 thou/uL (1.40-6.50); %Basophils 0.4 % (0.0-1.0); %Eosinophils 1.2 % (0.0-10.0); %Lymphocytes 23.7 % (21.0-51.0); %Monocytes 10.1 % (0.0-10.0); %Neutrophils 64.6 % (42.0-75.0); Hemoglobin 12.4 g/dL (14.0-18.0); Mean Corpuscular HGB CONC 32.4 g/dL (32.0-36.0); Mean Corpuscular Hemoglobin 28.5 pg (27.0-31.0); Mean Corpuscular Volume 87.9 fL (78.0-98.0); Mean Platelet Volume 9.9 fL (7.4-10.4); Platelet Count 137 thou/uL (130-400); RBC Distribution Width 14.1 % (11.5-14.5); Red Blood Cell (RBC) Count 4.36 mill/uL (4.70-6.10); White Blood Cell (WBC) Count 7.1 thou/uL (4.8-10.8)
[2022-07-28 01:49] LABS: ALT (SGPT) 10 U/L (8-55); AST (SGOT) 15 U/L (5-34); Albumin 3.5 g/dL (3.4-4.8); Alkaline Phosphatase 120 U/L (40-110); Anion Gap 15 mmol/L (10-20); BUN (Urea Nitrogen) 28 mg/dL (8.4-25.7); Bilirubin, Total 0.5 mg/dL (0.2-1.2); Calc. Creatinine Clearance 0 mL/min (70-130); Calcium 9.7 mg/dL (7.8-10.44); Carbon Dioxide 34 mmol/L (23-31); Chloride 96 mmol/L (98-107); Estimated GFR 61; Glucose 102 mg/dL (83-110); Lipase 16 U/L (8-78); Magnesium 2.2 mg/dL (1.6-2.6); Potassium 3.6 mmol/L (3.5-5.1); Protein, Total 6.5 g/dL (5.8-8.1); Sodium 141 mmol/L (136-145)
[2022-07-28 03:30] LABS: Bilirubin Negative (Negative); Blood, Urine Trace (Negative); Clarity Clear (Clear); Glucose, Urine (Dipstick) Negative (Negative); Ketone, Urine Negative (Negative); Leukocyte Negative (Negative); Nitrite Negative (Negative); Protein, Urine (Dipstick) Negative (Neg-Trace); Urobilinogen 0.2 mg/dL (Less than 2)
[2022-07-28 03:41] LABS: RBC/HPF 0-3 HPF (0-3); Squamous Epithelial 0-3 HPF (0-3); WBC/HPF None Seen HPF (0-3)
[2022-07-28] MEDS ORDERED: Iopamidol 370 76% 100 ML VIAL ONE (08:55)
== END 2022-07-28 05:10 | disposition home or self-care (01) ==
LOC: MADERS 00:53
DX: K59.00 Constipation, unspecified (principal); I72.3 Aneurysm of iliac artery; R19.00 Intra-abdominal and pelvic swelling, mass and lump, unspecified site; I13.0 Hypertensive heart and chronic kidney disease with heart failure and stage 1 through stage 4 chronic kidney disease, or unspecified chronic kidney disease; E11.22 Type 2 diabetes mellitus with diabetic chronic kidney disease; N18.9 Chronic kidney disease, unspecified; I50.9 Heart failure, unspecified; E03.9 Hypothyroidism, unspecified; L89.892 Pressure ulcer of other site, stage 2; E78.00 Pure hypercholesterolemia, unspecified; J44.9 Chronic obstructive pulmonary disease, unspecified; I48.91 Unspecified atrial fibrillation
CPT/HCPCS: 36415; 74177; 80053; 81003; 81015; 83605; 83690; 83735; 85025; 94760; 96372; 96374; J2405; J7620; Q9967

== ENCOUNTER 2022-10-27 11:24 | Emergency (ER) | payer MEDICARE ==
[2022-10-27] MEDS ORDERED: Morphine 4 MG/ML VIAL ONE (11:47)
[2022-10-27 12:46] LABS: #Eosinphils 0.1 thou/uL (0.0-0.7); #Lymphocytes 1.8 thou/uL (1.20-3.40); #Monocytes 0.6 thou/uL (0.11-0.59); #Neutrophils 4.7 thou/uL (1.40-6.50); %Basophils 0.5 % (0.0-1.0); %Eosinophils 1.1 % (0.0-10.0); %Monocytes 8.8 % (0.0-10.0); %Neutrophils 64.6 % (42.0-75.0); Hemoglobin 12.6 g/dL (14.0-18.0); Mean Corpuscular HGB CONC 32.8 g/dL (32.0-36.0); Mean Corpuscular Hemoglobin 29.4 pg (27.0-31.0); Mean Corpuscular Volume 89.5 fl (78.0-98.0); Platelet Count 151 10x3/uL (130-400); RBC Distribution Width 12.7 % (11.5-14.5); Red Blood Cell (RBC) Count 4.28 mill/uL (4.70-6.10); White Blood Cell (WBC) Count 7.2 10x3/uL (4.8-10.8)
[2022-10-27] MEDS ORDERED: Nitroglycerin 0.4 MG TAB 1 EACH ONE ×2 (13:03→14:49)
[2022-10-27] MEDS ORDERED: Aspirin Chewable 81 MG TAB ONE (13:03)
[2022-10-27 13:06] LABS: ALT (SGPT) 10 U/L (8-55); AST (SGOT) 17 U/L (5-34); Albumin 3.5 g/dL (3.4-4.8); Alkaline Phosphatase 113 U/L (40-110); Anion Gap 15 mmol/L (10-20); BUN (Urea Nitrogen) 30 mg/dL (8.4-25.7); Bilirubin, Total 0.6 mg/dL (0.2-1.2); CK (CPK) 27 U/L (30-200); CKMB 0.9 ng/mL (0-6.6); Calc. Creatinine Clearance 0 mL/min (70-130); Calcium 9.3 mg/dL (7.8-10.44); Carbon Dioxide 36 mmol/L (23-31); Estimated GFR 60; Globulin 2.9 g/dL (2.4-3.5); Glucose 111 mg/dL (83-110); Protein, Total 6.4 g/dL (5.8-8.1)
[2022-10-27 13:14] LABS: Chloride 92 mmol/L (98-107); Potassium 3.8 mmol/L (3.5-5.1); Sodium 139 mmol/L (136-145)
[2022-10-27 13:21] LABS: INR-International Normal Ratio 1.3; PTT 36.4 sec (22.9-36.1); Prothrombin Time 16.7 sec (12.0-14.7)
== END 2022-10-27 17:15 | disposition home or self-care (01) ==
LOC: MADERS 11:24
DX: M79.602 Pain in left arm (principal); J44.9 Chronic obstructive pulmonary disease, unspecified; E78.00 Pure hypercholesterolemia, unspecified; I13.0 Hypertensive heart and chronic kidney disease with heart failure and stage 1 through stage 4 chronic kidney disease, or unspecified chronic kidney disease; E11.22 Type 2 diabetes mellitus with diabetic chronic kidney disease; N18.9 Chronic kidney disease, unspecified; I50.9 Heart failure, unspecified; E03.9 Hypothyroidism, unspecified; Z79.01 Long term (current) use of anticoagulants; Z79.82 Long term (current) use of aspirin
CPT/HCPCS: 36415; 71045; 80053; 82550; 82553; 83880; 84484; 85025; 85610; 85730; 93005; 96372; J2270; J7620

== ENCOUNTER 2022-12-12 14:05 | Inpatient (IN) | payer MEDICARE ==
[2022-12-12 15:43] VITALS: BMI 32.5
[2022-12-12] MEDS ORDERED: FLU VACC QS2022-23(65YR UP)/PF 240 MCG/0.7 ML SYRINGE IM ONE (16:15)
[2022-12-12] MEDS ORDERED: Bisacodyl 10 MG SUPP PR PRN ×2 (18:30→18:32)
[2022-12-12] MEDS ORDERED: Bisacodyl 5 MG TAB PO PRN (18:32)
[2022-12-12] MEDS ORDERED: guaiFENesin/DM ER PO PRN (18:59)
[2022-12-12] MEDS: Ipratropium/Albuterol 3 ML NEB NEB SCH ×2 (19:47→23:41)
[2022-12-12] MEDS: Potassium Chloride 10 MEQ TAB PO SCH (21:10)
[2022-12-12] MEDS: guaiFENesin ER 600 MG TAB PO SCH (21:10)
[2022-12-12] MEDS: Apixaban 5 MG TAB PO SCH (21:10)
[2022-12-12] MEDS: Diltiazem HCl SR 60 mg Capsule PO SCH (21:10)
[2022-12-12] MEDS: Bisacodyl 10 MG SUPP PR SCH (21:11)
[2022-12-12] MEDS: Propafenone HCl 150 MG TAB PO SCH (21:11)
[2022-12-13] MEDS: Ipratropium/Albuterol 3 ML NEB NEB SCH ×6 (02:55→20:51)
[2022-12-13] MEDS: Levothyroxine Sodium 25 MCG TAB PO SCH (05:29)
[2022-12-13] MEDS: Aspirin 81 mg Enteric Coated Tablet PO SCH (09:15)
[2022-12-13] MEDS: Potassium Chloride 10 MEQ TAB PO SCH ×2 (09:15→20:50)
[2022-12-13] MEDS: Diltiazem HCl SR 60 mg Capsule PO SCH ×2 (09:15→20:51)
[2022-12-13] MEDS: Propafenone HCl 150 MG TAB PO SCH ×3 (09:15→20:51)
[2022-12-13] MEDS: Furosemide 40 MG TAB PO SCH (09:16)
[2022-12-13] MEDS: Apixaban 5 MG TAB PO SCH ×2 (09:16→20:51)
[2022-12-13] MEDS: Montelukast Sodium 10 mg Tablet PO SCH (09:16)
[2022-12-13] MEDS: guaiFENesin ER 600 MG TAB PO SCH ×2 (09:16→20:50)
[2022-12-13] MEDS: Lantiseptic Ointment 130 GM JAR TOP PRN ×2 (09:44→20:51)
[2022-12-13] MEDS: Nystatin Powder 15 GM BOT TOP SCH ×2 (09:44→20:52)
[2022-12-13] MEDS ORDERED: Emollient 15 oz bottle 450 ML, Triamcinolone Acetonide 200 MG TOP PRN (11:37)
[2022-12-13] MEDS: Emollient 15 oz bottle 450 ML, Triamcinolone Acetonide 200 MG TOP SCH (12:31)
[2022-12-13] MEDS: Bisacodyl 10 MG SUPP PR SCH (20:51)
[2022-12-14] MEDS: Ipratropium/Albuterol 3 ML NEB NEB SCH ×6 (00:42→20:12)
[2022-12-14] MEDS: Levothyroxine Sodium 25 MCG TAB PO SCH (05:12)
[2022-12-14] MEDS: Apixaban 5 MG TAB PO SCH ×2 (08:12→20:13)
[2022-12-14] MEDS: Furosemide 40 MG TAB PO SCH (08:12)
[2022-12-14] MEDS: Potassium Chloride 10 MEQ TAB PO SCH ×2 (08:12→20:13)
[2022-12-14] MEDS: guaiFENesin ER 600 MG TAB PO SCH ×2 (08:12→20:13)
[2022-12-14] MEDS: Montelukast Sodium 10 mg Tablet PO SCH (08:12)
[2022-12-14] MEDS: Propafenone HCl 150 MG TAB PO SCH ×3 (08:12→20:13)
[2022-12-14] MEDS: Diltiazem HCl SR 60 mg Capsule PO SCH ×2 (08:12→20:13)
[2022-12-14] MEDS: Aspirin 81 mg Enteric Coated Tablet PO SCH (08:12)
[2022-12-14] MEDS: Lantiseptic Ointment 130 GM JAR TOP PRN (08:13)
[2022-12-14] MEDS: Emollient 15 oz bottle 450 ML, Triamcinolone Acetonide 200 MG TOP SCH (08:13)
[2022-12-14] MEDS: Nystatin Powder 15 GM BOT TOP SCH ×2 (08:13→21:30)
[2022-12-14] MEDS: Ipratropium/Albuterol 3 ML NEB NEB PRN (11:35)
[2022-12-14] MEDS: Sodium Chloride 0.65% Nasal 44 ML BOT EA NARE PRN (13:44)
[2022-12-14] MEDS: Bisacodyl 10 MG SUPP PR SCH (21:30)
[2022-12-14] MEDS: Lorazepam 1 MG TAB PO PRN (22:32)
[2022-12-14] MEDS: Acetaminophen 325 MG TAB PO PRN (22:32)
[2022-12-15] MEDS: Ipratropium/Albuterol 3 ML NEB NEB SCH ×6 (01:00→21:10)
[2022-12-15] MEDS: Levothyroxine Sodium 25 MCG TAB PO SCH (05:16)
[2022-12-15] MEDS: Sodium Chloride 0.65% Nasal 44 ML BOT EA NARE PRN (08:39)
[2022-12-15] MEDS: Aspirin 81 mg Enteric Coated Tablet PO SCH (08:39)
[2022-12-15] MEDS: Diltiazem HCl SR 60 mg Capsule PO SCH ×2 (08:39→21:36)
[2022-12-15] MEDS: Apixaban 5 MG TAB PO SCH ×2 (08:39→21:36)
[2022-12-15] MEDS: Potassium Chloride 10 MEQ TAB PO SCH ×2 (08:39→21:36)
[2022-12-15] MEDS: Furosemide 40 MG TAB PO SCH (08:40)
[2022-12-15] MEDS: Propafenone HCl 150 MG TAB PO SCH ×3 (08:40→21:35)
[2022-12-15] MEDS: Montelukast Sodium 10 mg Tablet PO SCH (08:40)
[2022-12-15] MEDS: guaiFENesin ER 600 MG TAB PO SCH ×2 (08:40→21:36)
[2022-12-15] MEDS: Lantiseptic Ointment 130 GM JAR TOP PRN (08:41)
[2022-12-15] MEDS: Emollient 15 oz bottle 450 ML, Triamcinolone Acetonide 200 MG TOP SCH (08:42)
[2022-12-15] MEDS: Nystatin Powder 15 GM BOT TOP SCH (08:42)
[2022-12-16] MEDS: Bisacodyl 10 MG SUPP PR SCH ×2 (00:17→21:46)
[2022-12-16] MEDS: Nystatin Powder 15 GM BOT TOP SCH ×3 (00:18→21:46)
[2022-12-16] MEDS: Acetaminophen 325 MG TAB PO PRN ×2 (00:20→23:33)
[2022-12-16] MEDS: Ipratropium/Albuterol 3 ML NEB NEB SCH ×6 (00:21→20:10)
[2022-12-16] MEDS: Levothyroxine Sodium 25 MCG TAB PO SCH (05:22)
[2022-12-16] MEDS: Apixaban 5 MG TAB PO SCH ×2 (09:34→21:46)
[2022-12-16] MEDS: Diltiazem HCl SR 60 mg Capsule PO SCH ×2 (09:34→21:46)
[2022-12-16] MEDS: Montelukast Sodium 10 mg Tablet PO SCH (09:35)
[2022-12-16] MEDS: Potassium Chloride 10 MEQ TAB PO SCH ×2 (09:35→21:46)
[2022-12-16] MEDS: guaiFENesin ER 600 MG TAB PO SCH ×2 (09:35→21:46)
[2022-12-16] MEDS: Aspirin 81 mg Enteric Coated Tablet PO SCH (09:35)
[2022-12-16] MEDS: Propafenone HCl 150 MG TAB PO SCH ×3 (09:35→21:46)
[2022-12-16] MEDS: Furosemide 40 MG TAB PO SCH (09:36)
[2022-12-16] MEDS: Lantiseptic Ointment 130 GM JAR TOP PRN (09:45)
[2022-12-16] MEDS: Emollient 15 oz bottle 450 ML, Triamcinolone Acetonide 200 MG TOP SCH (09:47)
[2022-12-17] MEDS: Ipratropium/Albuterol 3 ML NEB NEB SCH ×6 (00:01→21:35)
[2022-12-17] MEDS: Lorazepam 1 MG TAB PO PRN (03:29)
[2022-12-17] MEDS: Ipratropium/Albuterol 3 ML NEB NEB PRN ×2 (03:30→11:18)
[2022-12-17] MEDS: Acetaminophen 325 MG TAB PO PRN (03:31)
[2022-12-17] MEDS: Levothyroxine Sodium 25 MCG TAB PO SCH (06:27)
[2022-12-17] MEDS: Propafenone HCl 150 MG TAB PO SCH ×3 (08:24→21:52)
[2022-12-17] MEDS: guaiFENesin ER 600 MG TAB PO SCH ×2 (08:24→21:52)
[2022-12-17] MEDS: Montelukast Sodium 10 mg Tablet PO SCH (08:24)
[2022-12-17] MEDS: Diltiazem HCl SR 60 mg Capsule PO SCH ×2 (08:24→22:09)
[2022-12-17] MEDS: Furosemide 40 MG TAB PO SCH (08:24)
[2022-12-17] MEDS: Aspirin 81 mg Enteric Coated Tablet PO SCH (08:24)
[2022-12-17] MEDS: Apixaban 5 MG TAB PO SCH ×2 (08:24→21:52)
[2022-12-17] MEDS: Nystatin Powder 15 GM BOT TOP SCH ×2 (08:24→21:52)
[2022-12-17] MEDS: Potassium Chloride 10 MEQ TAB PO SCH ×2 (08:24→21:52)
[2022-12-17] MEDS: Emollient 15 oz bottle 450 ML, Triamcinolone Acetonide 200 MG TOP SCH (08:25)
[2022-12-17] MEDS: Bisacodyl 10 MG SUPP PR SCH (21:52)
[2022-12-18] MEDS: Ipratropium/Albuterol 3 ML NEB NEB SCH ×7 (01:09→23:56)
[2022-12-18] MEDS: Levothyroxine Sodium 25 MCG TAB PO SCH (05:15)
[2022-12-18] MEDS: Diltiazem HCl SR 60 mg Capsule PO SCH ×2 (09:07→20:48)
[2022-12-18] MEDS: Apixaban 5 MG TAB PO SCH ×2 (09:07→20:49)
[2022-12-18] MEDS: Aspirin 81 mg Enteric Coated Tablet PO SCH (09:07)
[2022-12-18] MEDS: Furosemide 40 MG TAB PO SCH (09:07)
[2022-12-18] MEDS: guaiFENesin ER 600 MG TAB PO SCH ×2 (09:07→20:49)
[2022-12-18] MEDS: Potassium Chloride 10 MEQ TAB PO SCH ×2 (09:07→20:49)
[2022-12-18] MEDS: Montelukast Sodium 10 mg Tablet PO SCH (09:08)
[2022-12-18] MEDS: Propafenone HCl 150 MG TAB PO SCH ×3 (09:08→20:48)
[2022-12-18] MEDS: Emollient 15 oz bottle 450 ML, Triamcinolone Acetonide 200 MG TOP SCH (09:08)
[2022-12-18] MEDS: Nystatin Powder 15 GM BOT TOP SCH ×2 (09:08→20:49)
[2022-12-18] MEDS: Ipratropium/Albuterol 3 ML NEB NEB PRN ×2 (11:29→15:50)
[2022-12-18] MEDS: Lorazepam 1 MG TAB PO PRN (15:53)
[2022-12-18] MEDS: Acetaminophen 325 MG TAB PO PRN (20:50)
[2022-12-18] MEDS: Bisacodyl 10 MG SUPP PR SCH (20:50)
[2022-12-19] MEDS: Acetaminophen 325 MG TAB PO PRN (03:17)
[2022-12-19] MEDS: Ipratropium/Albuterol 3 ML NEB NEB SCH ×2 (04:35→08:29)
[2022-12-19] MEDS: Levothyroxine Sodium 25 MCG TAB PO SCH (04:36)
[2022-12-19] MEDS: Aspirin 81 mg Enteric Coated Tablet PO SCH (08:18)
[2022-12-19] MEDS: Propafenone HCl 150 MG TAB PO SCH (08:19)
[2022-12-19] MEDS: guaiFENesin ER 600 MG TAB PO SCH (08:19)
[2022-12-19] MEDS: Diltiazem HCl SR 60 mg Capsule PO SCH (08:19)
[2022-12-19] MEDS: Montelukast Sodium 10 mg Tablet PO SCH (08:19)
[2022-12-19] MEDS: Potassium Chloride 10 MEQ TAB PO SCH (08:19)
[2022-12-19] MEDS: Nystatin Powder 15 GM BOT TOP SCH (08:20)
[2022-12-19] MEDS: Lantiseptic Ointment 130 GM JAR TOP PRN (08:20)
[2022-12-19] MEDS: Furosemide 40 MG TAB PO SCH (08:20)
[2022-12-19] MEDS: Apixaban 5 MG TAB PO SCH (08:20)
[2022-12-19] MEDS: Emollient 15 oz bottle 450 ML, Triamcinolone Acetonide 200 MG TOP SCH (08:26)
[2022-12-19 09:03] VITALS: BP 125/67; TEMP 97.7
== END 2022-12-19 10:45 | disposition home or self-care (01) | DRG 947 ==
LOC: MADMS 15:05
PROVIDERS: ADMIT Family Medicine; ATTEND Family Medicine
DX: R53.1 Weakness (principal); J96.20 Acute and chronic respiratory failure, unspecified whether with hypoxia or hypercapnia; I50.32 Chronic diastolic (congestive) heart failure; J44.9 Chronic obstructive pulmonary disease, unspecified; I48.91 Unspecified atrial fibrillation; I25.10 Atherosclerotic heart disease of native coronary artery without angina pectoris; N18.9 Chronic kidney disease, unspecified; E11.22 Type 2 diabetes mellitus with diabetic chronic kidney disease; I48.0 Paroxysmal atrial fibrillation; Z20.822 Contact with and (suspected) exposure to COVID-19; G47.33 Obstructive sleep apnea (adult) (pediatric); E03.9 Hypothyroidism, unspecified; Z90.49 Acquired absence of other specified parts of digestive tract; Z95.5 Presence of coronary angioplasty implant and graft; Z99.81 Dependence on supplemental oxygen; Z93.0 Tracheostomy status; Z79.899 Other long term (current) drug therapy; Z79.82 Long term (current) use of aspirin
CPT/HCPCS: 87811; J3301; J7620

== ENCOUNTER 2023-01-04 18:43 | Emergency (ER) | payer MEDICARE ==
[2023-01-04 19:29] LABS: #Lymphocytes 1.6 thou/uL (1.20-3.40); %Basophils 0.3 % (0.0-1.0); %Eosinophils 0.1 % (0.0-10.0); %Lymphocytes 12.4 % (21.0-51.0); %Neutrophils 79.2 % (42.0-75.0); Hemoglobin 12.6 g/dL (14.0-18.0); Mean Corpuscular HGB CONC 33.2 g/dL (32.0-36.0); Mean Corpuscular Hemoglobin 29.4 pg (27.0-31.0); Mean Corpuscular Volume 88.5 fl (78.0-98.0); Mean Platelet Volume 8.1 fL (7.4-10.4); Platelet Count 164 10x3/uL (130-400); RBC Distribution Width 13.1 % (11.5-14.5); Red Blood Cell (RBC) Count 4.28 mill/uL (4.70-6.10); White Blood Cell (WBC) Count 12.6 10x3/uL (4.8-10.8)
[2023-01-04 19:39] LABS: ALT (SGPT) Less than 7 U/L (8-55); AST (SGOT) 14 U/L (5-34); Albumin 3.8 g/dL (3.4-4.8); Alkaline Phosphatase 125 U/L (40-110); Anion Gap 15 mmol/L (10-20); BUN (Urea Nitrogen) 16 mg/dL (8.4-25.7); Bilirubin, Total 0.9 mg/dL (0.2-1.2); Calc. Creatinine Clearance 0 mL/min (70-130); Calcium 9.3 mg/dL (7.8-10.44); Carbon Dioxide 33 mmol/L (23-31); Chloride 92 mmol/L (98-107); Estimated GFR 61; Glucose 106 mg/dL (83-110); Magnesium 1.8 mg/dL (1.6-2.6); Potassium 3.5 mmol/L (3.5-5.1); Protein, Total 6.8 g/dL (5.8-8.1); Sodium 136 mmol/L (136-145)
[2023-01-04] MEDS ORDERED: Ipratropium/Albuterol 3 ML NEB ONE (21:12)
[2023-01-04 21:15] LABS: Bilirubin Negative (Negative); Blood, Urine Trace (Negative); Clarity Clear (Clear); Glucose, Urine (Dipstick) Negative (Negative); Ketone, Urine Negative (Negative); Leukocyte Moderate (Negative); Nitrite Negative (Negative); Protein, Urine (Dipstick) Negative (Neg-Trace); Specific Gravity, Urine 1.015 (1.005-1.030)
[2023-01-04 21:28] LABS: Bacteria/HPF 2+ HPF (None Seen); RBC/HPF 0-3 HPF (0-3); Squamous Epithelial 0-3 HPF (0-3); WBC/HPF 21-50 HPF (0-3)
[2023-01-04] MEDS ORDERED: cefTRIAXone\\ROCEPHIN 1 GM VIAL ONE (21:44)
== END 2023-01-04 22:05 | disposition home or self-care (01) ==
LOC: MADERS 18:43
DX: N39.0 Urinary tract infection, site not specified (principal); I25.10 Atherosclerotic heart disease of native coronary artery without angina pectoris; E78.5 Hyperlipidemia, unspecified; J44.9 Chronic obstructive pulmonary disease, unspecified; E03.9 Hypothyroidism, unspecified; E11.22 Type 2 diabetes mellitus with diabetic chronic kidney disease; I13.0 Hypertensive heart and chronic kidney disease with heart failure and stage 1 through stage 4 chronic kidney disease, or unspecified chronic kidney disease; N18.9 Chronic kidney disease, unspecified; Z87.891 Personal history of nicotine dependence; Z79.01 Long term (current) use of anticoagulants; Z79.82 Long term (current) use of aspirin; Z79.899 Other long term (current) drug therapy
CPT/HCPCS: 80053; 81003; 81015; 83735; 85025; 87077; 87086; 93005; 94760; 96372; J0696; J7620

== ENCOUNTER 2023-03-01 10:59 | Emergency (ER) | payer MEDICARE ==
[2023-03-01] MEDS ORDERED: Sodium Chloride 0.9% 1,000 ML ONE (12:02)
[2023-03-01 12:03] LABS: #Eosinphils 0.1 thou/uL (0.0-0.7); #Lymphocytes 1.4 thou/uL (1.20-3.40); #Monocytes 0.5 thou/uL (0.11-0.59); #Neutrophils 3.2 thou/uL (1.40-6.50); %Basophils 0.9 % (0.0-1.0); %Eosinophils 2.6 % (0.0-10.0); %Lymphocytes 27.4 % (21.0-51.0); %Monocytes 8.7 % (0.0-10.0); %Neutrophils 60.4 % (42.0-75.0); Hemoglobin 12.2 g/dL (14.0-18.0); Mean Corpuscular HGB CONC 31.4 g/dL (32.0-36.0); Mean Corpuscular Hemoglobin 29.1 pg (27.0-31.0); Mean Corpuscular Volume 92.7 fl (78.0-98.0); Mean Platelet Volume 9.8 fL (7.4-10.4); Platelet Count 163 10x3/uL (130-400); Red Blood Cell (RBC) Count 4.18 mill/uL (4.70-6.10); White Blood Cell (WBC) Count 5.2 10x3/uL (4.8-10.8)
[2023-03-01 12:21] LABS: Bilirubin Negative (Negative); Blood, Urine Negative (Negative); Clarity Slightly Cloudy (Clear); Glucose, Urine (Dipstick) Negative (Negative); Ketone, Urine Negative (Negative); Leukocyte Negative (Negative); Nitrite Negative (Negative); Protein, Urine (Dipstick) Negative (Neg-Trace)
[2023-03-01 12:21] LABS: ALT (SGPT) 8 U/L (8-55); AST (SGOT) 14 U/L (5-34); Albumin 3.6 g/dL (3.4-4.8); Alkaline Phosphatase 121 U/L (40-110); Anion Gap 11 mmol/L (10-20); BUN (Urea Nitrogen) 17 mg/dL (8.4-25.7); Bilirubin, Total 0.5 mg/dL (0.2-1.2); Calc. Creatinine Clearance 0 mL/min (70-130); Calcium 9.3 mg/dL (7.8-10.44); Carbon Dioxide 36 mmol/L (23-31); Chloride 96 mmol/L (98-107); Estimated GFR 70; Globulin 3.1 g/dL (2.4-3.5); Glucose 98 mg/dL (83-110); Potassium 4.3 mmol/L (3.5-5.1); Protein, Total 6.7 g/dL (5.8-8.1); Sodium 139 mmol/L (136-145)
[2023-03-01 12:24] LABS: Base Excess-Venous 11.9 mmol/L (-2.0 to 3.0); Bicarbonate (HCO3v) 40.2 mmol/L (22.0-28.0); Calcium, Ionized 1.12 mmol/L (1.15-1.33); Chloride 96 mmol/L (98-107); Hemoglobin - Calc 14.7 g/dL (14.0-18.0); Potassium 4.3 mmol/L (3.5-5.1); Sodium 141 mmol/L (138-145); T. Carbon Dioxide 42.3 mmol/L (22.0-28.0); vO2 Saturation-calc 55.4 % (60.0-85.0)
[2023-03-01 12:56] LABS: SARS-CoV-2 NAA Rapid Test Not Detected (NotDetected)
[2023-03-01] MEDS ORDERED: Ipratropium/Albuterol 3 ML NEB ONE (13:13)
[2023-03-01] MEDS ORDERED: cefTRIAXone (ROCEPHIN) 1 GM VIAL ONE (13:13)
== END 2023-03-01 14:20 | disposition home or self-care (01) ==
LOC: MADERS 10:59
DX: J20.9 Acute bronchitis, unspecified (principal); H66.92 Otitis media, unspecified, left ear; I25.10 Atherosclerotic heart disease of native coronary artery without angina pectoris; I11.0 Hypertensive heart disease with heart failure; I50.9 Heart failure, unspecified; I48.91 Unspecified atrial fibrillation; E78.5 Hyperlipidemia, unspecified; E03.9 Hypothyroidism, unspecified; Z87.891 Personal history of nicotine dependence; Z20.822 Contact with and (suspected) exposure to COVID-19
CPT/HCPCS: 71045; 80053; 81003; 82330; 82803; 83605; 83880; 84484; 85025; 87040; 87081; 87430; 87804; 93005; 94760; 96365; J0696; J7050; J7620; U0002

== ENCOUNTER 2023-03-07 15:51 | Outpatient (CLI) | payer MEDICARE | END 2023-03-07 15:52 | disposition home or self-care (01) | LOC: MADCT 15:51 | PROVIDERS: ATTEND Thoracic Surgery (Cardiothoracic Vascular Surgery) | DX: I72.3 Aneurysm of iliac artery (principal); R19.04 Left lower quadrant abdominal swelling, mass and lump; N28.1 Cyst of kidney, acquired | CPT/HCPCS: 74176 ==

== ENCOUNTER 2023-03-19 11:40 | Emergency (ER) | payer MEDICARE ==
[2023-03-19 12:30] LABS: #Eosinphils 0.1 thou/uL (0.0-0.7); #Lymphocytes 1.5 thou/uL (1.20-3.40); #Monocytes 0.4 thou/uL (0.11-0.59); #Neutrophils 2.8 thou/uL (1.40-6.50); %Eosinophils 2.6 % (0.0-10.0); %Lymphocytes 30.8 % (21.0-51.0); %Monocytes 8.7 % (0.0-10.0); %Neutrophils 56.9 % (42.0-75.0); Hemoglobin 12.2 g/dL (14.0-18.0); Mean Corpuscular HGB CONC 32.5 g/dL (32.0-36.0); Mean Corpuscular Hemoglobin 29.2 pg (27.0-31.0); Mean Corpuscular Volume 89.8 fl (78.0-98.0); Mean Platelet Volume 9.8 fL (7.4-10.4); Platelet Count 155 10x3/uL (130-400); RBC Distribution Width 14.3 % (11.5-14.5); Red Blood Cell (RBC) Count 4.18 mill/uL (4.70-6.10); White Blood Cell (WBC) Count 4.9 10x3/uL (4.8-10.8)
[2023-03-19] MEDS ORDERED: Furosemide 40 MG/4 ML VIAL ONE (12:38)
[2023-03-19 12:50] LABS: ALT (SGPT) 7 U/L (8-55); AST (SGOT) 15 U/L (5-34); Albumin 3.5 g/dL (3.4-4.8); Alkaline Phosphatase 127 U/L (40-110); Anion Gap 12 mmol/L (10-20); BUN (Urea Nitrogen) 18 mg/dL (8.4-25.7); Bilirubin, Total 0.5 mg/dL (0.2-1.2); Calc. Creatinine Clearance 0 mL/min (70-130); Calcium 9.6 mg/dL (7.8-10.44); Carbon Dioxide 33 mmol/L (23-31); Chloride 99 mmol/L (98-107); Estimated GFR 63; Globulin 2.9 g/dL (2.4-3.5); Glucose 93 mg/dL (83-110); Potassium 4.1 mmol/L (3.5-5.1); Protein, Total 6.4 g/dL (5.8-8.1); Sodium 140 mmol/L (136-145)
[2023-03-19 13:42] LABS: Bilirubin Negative (Negative); Blood, Urine Negative (Negative); Clarity Clear (Clear); Glucose, Urine (Dipstick) Negative (Negative); Ketone, Urine Negative (Negative); Leukocyte Negative (Negative); Nitrite Negative (Negative); Protein, Urine (Dipstick) Negative (Neg-Trace); Specific Gravity, Urine 1.015 (1.005-1.030)
[2023-03-19] MEDS ORDERED: Ipratropium/Albuterol 3 ML NEB ONE (14:44)
== END 2023-03-19 15:13 | disposition home or self-care (01) ==
LOC: MADERS 11:40
DX: L03.116 Cellulitis of left lower limb (principal); I25.10 Atherosclerotic heart disease of native coronary artery without angina pectoris; E03.9 Hypothyroidism, unspecified; I11.0 Hypertensive heart disease with heart failure; I50.9 Heart failure, unspecified; E78.00 Pure hypercholesterolemia, unspecified; Z87.891 Personal history of nicotine dependence; Z79.899 Other long term (current) drug therapy; Z79.01 Long term (current) use of anticoagulants
CPT/HCPCS: 71045; 80053; 81003; 83605; 83880; 85025; 85379; 86140; 87040; 94760; 96374; J1940; J7620

== ENCOUNTER 2023-03-28 16:14 | Emergency (ER) | payer MEDICARE ==
[2023-03-28] MEDS ORDERED: methylPREDNISolone Sod Succ/PF 125 MG/2 ML VIAL ONE (16:29)
[2023-03-28] MEDS ORDERED: Ipratropium/Albuterol 3 ML NEB ONE ×2 (16:29→18:31)
[2023-03-28 16:48] LABS: #Eosinphils 0.2 thou/uL (0.0-0.7); #Lymphocytes 1.6 thou/uL (1.20-3.40); #Monocytes 0.5 thou/uL (0.11-0.59); #Neutrophils 2.6 thou/uL (1.40-6.50); %Basophils 0.9 % (0.0-1.0); %Lymphocytes 32.4 % (21.0-51.0); %Monocytes 10.7 % (0.0-10.0); %Neutrophils 52.1 % (42.0-75.0); Hemoglobin 12.6 g/dL (14.0-18.0); Mean Corpuscular Hemoglobin 28.6 pg (27.0-31.0); Mean Corpuscular Volume 89.6 fl (78.0-98.0); Mean Platelet Volume 9.6 fL (7.4-10.4); Platelet Count 176 10x3/uL (130-400)
[2023-03-28 17:02] LABS: ALT (SGPT) 8 U/L (8-55); AST (SGOT) 16 U/L (5-34); Albumin 3.8 g/dL (3.4-4.8); Alkaline Phosphatase 126 U/L (40-110); Anion Gap 14 mmol/L (10-20); BUN (Urea Nitrogen) 24 mg/dL (8.4-25.7); Bilirubin, Total 0.4 mg/dL (0.2-1.2); Calc. Creatinine Clearance 0 mL/min (70-130); Calcium 9.6 mg/dL (7.8-10.44); Carbon Dioxide 34 mmol/L (23-31); Chloride 97 mmol/L (98-107); Estimated GFR 54; Glucose 101 mg/dL (83-110); Potassium 4.5 mmol/L (3.5-5.1); Protein, Total 6.8 g/dL (5.8-8.1); Sodium 140 mmol/L (136-145)
== END 2023-03-28 20:34 | disposition home or self-care (01) ==
LOC: MADERS 16:14
DX: J44.1 Chronic obstructive pulmonary disease with (acute) exacerbation (principal); I11.0 Hypertensive heart disease with heart failure; I50.9 Heart failure, unspecified; E78.00 Pure hypercholesterolemia, unspecified; I25.10 Atherosclerotic heart disease of native coronary artery without angina pectoris; E03.9 Hypothyroidism, unspecified; I48.91 Unspecified atrial fibrillation; Z87.891 Personal history of nicotine dependence; Z79.899 Other long term (current) drug therapy; Z79.01 Long term (current) use of anticoagulants
CPT/HCPCS: 71045; 80053; 83880; 84484; 85025; 93005; J2930; J7620

== ENCOUNTER 2023-10-25 08:59 | Outpatient (CLI) | payer MEDICARE | END 2023-10-25 09:00 | disposition home or self-care (01) | LOC: MADCT 08:59 | PROVIDERS: ATTEND Thoracic Surgery (Cardiothoracic Vascular Surgery) | DX: I72.3 Aneurysm of iliac artery (principal) | CPT/HCPCS: 36415; 74176; 82565 ==